=== PATIENT | female | born 1970 | race Caucasian/White ===

== ENCOUNTER 2020-08-31 16:52 | Observation (INO) | payer OTHER, SELFPAY ==
[2020-08-31] VITALS (19 sets, daily range): BP systolic 133–153; BP diastolic 88–106; PULSE 69–97; RESP 12–27; TEMP 35.7–36.6; O2SAT 95–100; BMI 30.8
--- NOTE | ~2020-08-31 | CT_ITS ---
EXAMINATION: CT abdomen pelvis w con EXAM DATE: 08/31/2020 18:14 INDICATION: Swollen legs, gaining weight, abdominal pain . TECHNIQUE: Spiral CT of the abdomen and pelvis was performed following intravenous injection of 100 m L Omnipaque 350. Axial, coronal and sagittal images were reviewed. The dose-length product (DLP) fo r this examination was 769.38 mGy-cm. The exposure was tailored according to patient size (auto mA e xposure control), and iterative reconstruction (ASIR) was used as additional dose reduction technique . Comparison is made to prior examination from 09/20/2015. FINDINGS: The liver, spleen, adrenal glands and pancreas are unremarkable. Gallbladder is unremarkab le. No biliary obstruction. Portal and splenic veins are patent. Kidneys enhance symmetrically. T here is no hydronephrosis. The uterus is anteverted and morphologically normal. The bladder is co llapsed at time of imaging limiting evaluation. There is no retroperitoneal or pelvic lymphadenopath y. There is mild scattered arteriosclerotic disease. The appendix is normal. There is moderate sigmoid colonic diverticulosis. There is no adjacent infla mmatory change to suggest diverticulitis. Small duodenal diverticulum. There is expected amount of c olonic stool. No free intraperitoneal gas. The heart is normal in size. There are no pericardial or pleural effusions. The lung bases are unremarkable. There are no osteoblastic or osteolytic les ions identified. Healed left lower rib fractures. There is right-sided L5 spondylolysis, with 6 mm an terolisthesis L5 on S1. IMPRESSION: 1. No acute intra-abdominal findings. 2. Moderate sigmoid colonic diverticulosis. 3. Chronic right L5 spondylolysis, grade 1 anterolisthesis. Reviewed, dictated and finalized at location A.
--- NOTE | ~2020-08-31 | XR_ITS ---
EXAMINATION: XR chest 1V portable EXAM DATE: 08/31/2020 17:36 INDICATION: Hypokalemia, bilateral leg weakness. Symptoms one to 2 weeks. TECHNIQUE: Portable AP frontal chest x-ray was obtained. Comparison is made to prior examination from 12/12/2014. FINDINGS: The lungs are clear. There are no pleural effusions. Cardiac silhouette is prominent but magnified on this AP technique. There is no pneumothorax suspected. The bones and soft tissues are unremarkable. IMPRESSION: No acute cardiopulmonary findings. Reviewed, dictated and finalized at location A.
--- NOTE | 2020-08-31 17:12 | ECG_ITS ---
Measurements Intervals Phil Campbell Rate: 77 P: 27 MN: 166 QRS: -7 QRSD: 90 T: 25 QT: 386 QTc: 438 Interpretive Statements SINUS RHYTHM VENTRICULAR PREMATURE COMPLEXES BORDERLINE R WAVE PROGRESSION, ANTERIOR LEADS BORDERLINE ECG Electronically Signed On 08-31-2020 18:14:53 CDT by Efe Miguel D.O.
[2020-08-31 17:27] LABS: Basophils Percent Auto 0.5 % (0.2-1.2); Eosinophils Absolute Auto 0.1 K/mm3 (0-0.3); Eosinophils Percent Auto 1.6 % (0-4.4); Hematocrit 34.4 % (37.0-47.0); Hemoglobin 11.9 g/dL (12.0-15.0); Immature Granulocyte Absolute 0.01 K/mm3 (0.00-0.031); Immature Granulocyte Percent A 0.2 % (0-0.5); Lymphocytes Percent Auto 26.1 % (18.3-44.2); Mean Corpuscular HGB Conc 34.6 g/dl (32-36); Mean Corpuscular Hemoglobin 35.6 pg (26-34); Monocytes Absolute Auto 0.7 K/mm3 (0.1-0.6); Monocytes Percent Auto 11.7 % (2.6-8.5); Neutrophils Absolute Auto 3.7 K/mm3 (1.3-6.7); Neutrophils Percent Auto 59.9 % (45.5-73.1); Platelet Count Result 277 k/mm3 (150-375); Red Blood Count 3.34 M/mm3 (4.2-5.4); Red Cell Distribution Width 15.6 % (11.5-14.5); White Blood Count 6.1 K/mm3 (4.5-10.0)
[2020-08-31 17:43] LABS: Alanine Aminotransferase 10 U/L (4-35); Albumin Level 3.6 g/dL (3.5-5.1); Alkaline Phosphatase 70 U/L (38-126); Anion Gap 8 mmol/L (8-16); Aspartate Amino Transferase 22 U/L (14-36); Bilirubin,Total 0.2 mg/dL (0.2-1.3); Blood Urea Nitrogen 9 mg/dL (7-17); Calcium 8.5 mg/dL (8.4-10.2); Carbon Dioxide 25 mmol/L (22-30); Chloride 108 mmol/L (98-107); Estimated CRCL calculation 122 ml/min; Estimated Glomerular Filt Rate > 60; Glucose 84 mg/dL (65-105); Lipase 46 U/L (23-300); Magnesium 1.7 mg/dL (1.6-2.3); Potassium 2.7 mmol/L (3.4-5.0); Sodium 141 mmol/L (137-145)
--- NOTE | 2020-08-31 17:51 | ED.GENADULT ---
HPI - General Adult General Chief complaint: Recheck/Abnormal Lab/Rx Stated complaint: low potassium Time Seen by Provider: 08/31/20 17:07 Source: patient, family and RN notes reviewed Limitations: no limitations History of Present Illness HPI narrative: Patient is 50 years old white female presents with feeling swollen all over mainly lower extremity bilaterally mainly in the right 1., Intermittent palpitation. Started 3 days ago. Patient also complaining of numbness and cramps of the legs for a while. patient was seen by her family physician today and blood work-up showed hypokalemia. Patient referred to the emergency room for further evaluation. Patient is telling me that she gained weight lately. Short period of time. History of hypertension, asthma, patient smokes, drinks and uses marijuana intermittently. History of diverticulitis, last colonoscopy 1-1/2-year ago. Denies history of Covid or exposure to anybody known having Covid. Patient denies any fever, chills, nausea, vomiting. patient told me that she been having numerous episodes of diarrhea a day for the last few months. Scheduled to see a leaf conditioner helper. Patient works at [employer] with long hours standing a day. Related Data Home Medications Medication Instructions Recorded Confirmed albuterol sulfate INHALATION 08/31/20 lisinopril-hydrochlorothiazide tablet 08/31/20 Allergies Allergy/AdvReac Type Severity Reaction Status Date / Time No Known Allergies Allergy Verified 08/31/20 17:07 Review of Systems Review of Systems: Narrative: CONSTITUTIONAL: Denies fever, chills, or sweats. EYES: Denies visual changes, redness, or discharge. ENT: Denies rhinorrhea, congestion, sore throat, or otalgia. CARDIOVASCULAR: Denies chest pain, palpitations, or edema. RESPIRATORY: Denies cough or dyspnea. GASTROINTESTINAL: Denies abdominal pain, nausea, vomiting, or diarrhea. GENITOURINARY: Denies dysuria or hematuria. SKIN: Denies rash or itching. MUSCULOSKELETAL: Denies back pain, joint pain, or myalgia. NEUROLOGIC: Denies headache, numbness, or weakness. PSYCHIATRIC: Denies anxiety or depression. Exam Narrative: Exam Narrative: General appearance: Well-developed, well-nourished Skin: Edema lower extremity bilaterally up to the knees, mainly right lower leg. Head: Normocephalic, nontraumatic Eyes: Clear conjunctiva ENT: Oropharynx normal, ears normal, nose normal Neck: Supple, nontender Chest and respiratory: Airway patent, no respiratory distress, no accessory muscle use Heart: Regular rate/rhythm Abdomen: Soft, nontender, no organomegaly, quiet bowel sounds Vascular: Normal peripheral pulses, normal capillary refill. Musculoskeletal: Normal range of motion, nontender back Neurologic: Alert and oriented ?3, MANAGER SPEECH is normal as tested, no gross motor deficit Course Course Emergency Course: Stable Vital Signs Vital signs: Vital Signs Temperature 36.6 C 08/31/20 16:58 Pulse Rate 89 08/31/20 16:58 Respiratory Rate 15 08/31/20 16:58 Blood Pressure 148/96 H 08/31/20 16:58 Pulse Oximetry 98 08/31/20 16:58 Temperature 36.6 C 08/31/20 16:58 Pulse Rate 89 08/31/20 16:58 Respiratory Rate 15 08/31/20 16:58 Blood Pressure 148/96 H 08/31/20 16:58 Pulse Oximetry 98 08/31/20 16:58 Medical Decision Making [facility] Narrative Medical decision making narrative: Patient referred to
[2020-08-31 17:59] LABS: CRP < 0.5 mg/dL (<1.0)
[2020-08-31 18:01] LABS: Erythrocyte Sedimentation Rate 26 mm/hr (0-20)
[2020-08-31 18:06] LABS: NT Pro B Type Natriuretic Pept 232 PG/ML (5-100)
[2020-08-31 18:32] LABS: D Dimer 0.27 ug/mL (<0.48)
[2020-08-31 18:35] LABS: Add Urine Microscopic? NO; Appearance Urine Clear (Clear); Bilirubin Urine Negative (Negative); Blood Urine Negative (Negative); Color Urine Yellow (Yellow); Glucose Urine UA Negative (Negative); Ketones Urine Negative (Negative); Leukocyte Esterase Ur Negative LEU/UL (Negative); Nitrate Urine Negative (Negative); Protein Urine Negative (Negative); Specific Grav Ur 1.006 (1.001-1.035); Urobilinogen Urine Negative mg/dL (<2.0)
[2020-08-31] MEDS: POTASSIUM CHLORIDE 20 MEQ TABLET 40 MEQ PO (18:49)
--- NOTE | 2020-08-31 19:18 | PC.NURSE ---
Report received from CLEMENT Pedersen. Assumed care of patient at this time.
--- NOTE | 2020-08-31 20:30 | ADMGEN ---
This patient, Yanira Oshea, was admitted to Medical Room 344-01. Patient/family oriented to hospital policies and general routines including ID bracelet, bed and alarms, visiting hours, pain management, procedures, bathroom and other care routines, personal items, smoking policy, room service/diet, and visiting hours. Information on how to activate the Rapid Response Team has been discussed. Patient/Family are encouraged to report perceived risks to care and to ask questions if they do not understand what they are told or what they should do.
--- NOTE | 2020-09-01 | ECHO_ITS ---
Patient Info Name: Yanira Oshea Age: 50 years : 1970 Gender: Female Ht: 65 in Wt: 185 lbs BSA: 1.99 m2 HR: 72 bpm BP: 108 / 60 mmHg Heart Rhythm: Sinus Rhythm Technical Quality: Good Exam Date: 09/01/2020 7:28 AM Exam Location: [facility] Pulmonary Exam Room: 344 Patient Status: Inpatient Admit Date: 08/31/2020 Staff Ordering Physician: Keri Jones DO Container Crane Operator: Corine Oseguera RDCS Attending Provider: Francisco Fowler MD Referring Physician: Karen CUEVA; Exam Type: CA echo doppler color flow Study Info Indications - RD WEIGHT GAIN PALPITATIONS Complete two-dimensional, color flow and Doppler transthoracic echocardiogram is performed. Summary 1. Complete two-dimensional, color flow and Doppler transthoracic echocardiogram is performed. 2. Left ventricular chamber dimension is normal. 3. Left ventricular systolic function is normal, estimated at 60-65%. 4. There is no increased left ventricular wall thickness. 5. The left ventricular diastolic function is normal. 6. There is mild mitral valve regurgitation. 7. There is mild tricuspid valve regurgitation. Left Ventricle Left ventricular chamber dimension is normal. Left ventricular systolic function is normal, estimated at 60-65%. There is no increased left ventricular wall thickness. The left ventricular diastolic function is normal. Right Ventricle Right ventricular chamber dimension is normal. Right ventricular systolic function is normal. Left Atria Left atrial chamber dimension is normal. Right Atria Right atrial chamber dimension is normal. Atrial Septum Intact interatrial septum visualized by color flow imaging. Aortic Valve The aortic valve is trileaflet. There is mild aortic valve sclerosis. There is no aortic valve stenosis. There is trace aortic valve regurgitation. Pulmonic Valve The pulmonic valve is normal. There is no pulmonic valve stenosis. There is trace pulmonic regurgitation. Mitral Valve The mitral valve has normal leaflets. There is no mitral valve stenosis. There is mild mitral valve regurgitation. Tricuspid Valve The tricuspid valve leaflets are normal. There is no significant tricuspid valve stenosis. There is mild tricuspid valve regurgitation. No pulmonary hypertension, estimated pulmonary arterial systolic pressure is 27 mmHg. Pericardium/Pleural The pericardium appears normal. There is no pericardial effusion. Inferior Vena Cava Normal inferior vena cava with >50% collapse upon inspiration consistent with normal right atrial pressure, 10 mmHg. Aorta The aortic root size at the sinus of Valsalva is normal. The prox ascending aorta size is normal. Left Ventricular Outflow Tract Name Value Normal LVOT 2D LVOT Diameter 2.0 cm LVOT Doppler LVOT Peak Gradient 3 mmHg LVOT Mean Gradient 2 mmHg LVOT VTI 22 cm LVOT VTI/AV VTI Ratio 0.9 LVOT Stroke Volume 70 ml LVOT CO
[2020-09-01] MEDS: SODIUM CHLORIDE 0.9% IV 1,000 ML 125 ML IV CONT ×2 (00:05→08:27)
[2020-09-01 00:09] VITALS: PULSE 77
[2020-09-01 04:00] VITALS: PULSE 76
[2020-09-01 04:22] VITALS: BP 108/60; PULSE 74; RESP 18; TEMP 36.4; O2SAT 100
[2020-09-01 05:54] LABS: Anion Gap 0 mmol/L (8-16); Blood Urea Nitrogen 5 mg/dL (7-17); Calcium 7.6 mg/dL (8.4-10.2); Carbon Dioxide 28 mmol/L (22-30); Chloride 109 mmol/L (98-107); Estimated CRCL calculation 103 ml/min; Estimated Glomerular Filt Rate > 60; Glucose 89 mg/dL (65-105); Magnesium 1.6 mg/dL (1.6-2.3); Phosphorus 3.6 mg/dL (2.5-4.5); Sodium 137 mmol/L (137-145)
[2020-09-01 08:00] VITALS: BP 128/91; PULSE 66; RESP 20; TEMP 36.2; O2SAT 100
[2020-09-01] MEDS: POTASSIUM CHLORIDE 20 MEQ TABLET.ER 40 MEQ PO (08:29)
[2020-09-01 10:05] VITALS: PULSE 66; O2SAT 100
[2020-09-01 12:00] VITALS: PULSE 97
--- NOTE | 2020-09-01 13:48 | PM.SD2 ---
Same Day Admit/Disch: HPI History of Present Illness Chief complaint: Hypokalemia, diarrhea, dependent edema Narrative: Yanira Oshea is a 50 year old female admitted because of swelling in her ankles, and lab showing low potassium levels. Pt does have a history of asthma, HTN and possible IBS otherwise is in good health. Pt had renal liver and thyroid checks which was negative. Pt had unremarkable echo. Pt ankle swelling improved. Pt had potassium rider. Pt describes some diarrhea which may have caused her low potassium levels. Pt feels better and wants to go home pt has no further swelling in her ankles. [facility] Family History Family History Mother Congestive heart failure Diabetes mellitus Hypertension Sibling Diabetes mellitus Hypertension Sibling Diabetes mellitus Hypertension Father Hypertension Grandparent History of blood clots Social History Social History Years smoked: 10 Smoking status: Current every day smoker Tobacco type: cigarettes Alcohol intake: current Drinks per week: 14 Substance use: current Substance use type: marijuana Last use: 08/27/20 Gender identity (if verbalized by the patient): Female Spiritual care concerns: No Same Day Admit/Disch: Med Pre-admit Medications Home Medications Medication Instructions Recorded Confirmed Type acetaminophen 1,300 mg PO HS PRN 08/31/20 08/31/20 History albuterol sulfate 2 inh INHALATION QID PRN 08/31/20 08/31/20 History lisinopril-hydrochlorothiazide 1 tablet PO HS 08/31/20 08/31/20 History potassium chloride [K-Tab] 20 meq PO BID #20 tablet 09/01/20 Rx Exam Const: General: well developed Nutritional Appearance: well nourished HENMT: Head: normocephalic Eyes: General: appearance normal, both eyes and all related structures Pupils: Equal, round and reactive pupils present Neck: Neck: supple Chest: Chest palpation & inspection: normal inspection of the chest Resp: Effort & Inspection: normal respiratory effort Auscultation: clear to auscultation bilaterally Cardio: Jugular venous distension: no JVD Rhythm: regular rhythm Heart sounds: S1 normal heart sound present and S2 normal heart sound present GI: Inspection: normal to inspection GI Palp: No abdominal tenderness, Yes Soft to palpation and No Tenderness to palpation present (GI) Auscultation: normal bowel sounds : General: Yes no CVA tenderness Back/Spine/Pelvis: Back: no CVA tenderness Skin: General skin exam: normal color and dry skin Neuro: Cranial nerves: Yes CN's II-XII intact bilaterally and Yes Equal, round and reactive pupils present Cognition (Neuro): normal cognition Speech: normal speech Motor exam (neuro): 5/5 motor strength present throughout Extrem: General: normal to inspection Psych: Appearance: grossly normal Mental Status: mental status grossly normal DS: Data Data Completed and Pending Labs on day of discharge: Labs from last 24 hours 09/01/20 08/31/20 08/31/20 05:28 18:22 17:17 WBC RBC Hgb Hct MCV MCH MCHC RDW Plt Count MPV Immature Gran % (Auto) Neut % (Auto) Lymph % (Auto) Burke % (Auto) Eos % (Auto) Baso % (Auto) Lymph # (Auto) Burke # (Auto) Eos # (Auto) Baso # (Auto) Abs Immat Gran (auto) Absolute Neuts (auto) Absolute Nucleated RBC Nucleated RBC % ESR D-Dimer 0.27 Sodium 137 Potassium 3.0 L Chloride 109 H Carbon Dioxide 28 Anion Gap 0 L BUN 5 L Creatinine 0.60 L Estim Creat Clear Calc 103 Estimated GFR > 60 Glucose 89 Calcium 7.6 L Phosphorus 3.6 Magnesium 1.6 Total Bilirubin AST ALT Alkaline Phosphatase C-Reactive Protein NT-Pro-B Natriuret Pep Total Protein Albumin Lipase TSH Urine Color Yellow Urine Appearance Clear Ur
== END 2020-09-01 14:36 | disposition home or self-care (01) ==
LOC: ANHED 19:03 → ANH3MED 09-01 00:06 → ANH3MEDSUR 09-03 13:44
PROVIDERS: Admitting Provider Internal Medicine; Emergency Provider Emergency Medicine; PCP Internal Medicine; Visit Provider Family Medicine
DX: K52.9 Noninfective gastroenteritis and colitis, unspecified (principal); E87.6 Hypokalemia; I10 Essential (primary) hypertension; J45.909 Unspecified asthma, uncomplicated; R60.9 Edema, unspecified; F17.210 Nicotine dependence, cigarettes, uncomplicated
CPT/HCPCS: 36415; 71045; 74177; 80048; 80053; 81003; 83690; 83735; 83880; 84100; 84443; 85025; 85380; 85652; 86140; 93005; 93306; 96361; 96365; 96366; 96374; 99285; A9270; G0378; J0131; J3480; J7030; Q9967

== ENCOUNTER 2021-03-28 22:07 | Emergency (ER) | payer OTHER, SELFPAY ==
[2021-03-28 22:12] VITALS: BP 115/71; PULSE 89; RESP 18; TEMP 36.2; O2SAT 100
== END 2021-03-28 22:52 | disposition left against medical advice (07) ==
LOC: ANHED 23:00
PROVIDERS: PCP Internal Medicine
DX: R10.9 Unspecified abdominal pain (principal)
CPT/HCPCS: 99199

== ENCOUNTER 2021-10-26 10:54 | Outpatient (CLI) | payer OTHER, SELFPAY ==
--- NOTE | ~2021-10-26 | MR_ITS ---
EXAMINATION: MR knee LT wo con DATE: 10/26/2021 12:03 INDICATION: Generalized left knee pain, status post twisting injury 2 weeks ago. TECHNIQUE: Magnetic resonance imaging (MRI) of the left knee was performed without intravenous contra st. Sequences included axial PD-weighted FS FSE, coronal PD-weighted FSE and PD-weighted FS FSE, sagi ttal PD-weighted FSE, and sagittal T2-weighted FS FSE. COMPARISON: None. FINDINGS: Medial compartment: Intact meniscus. Diffuse mild cartilage thinning and osteophytosis. Lateral compartment: Oblique tear at the junction of the lateral meniscus posterior horn and body, with a flipped portion of meniscus. Large area of full-thickness cartilage loss on the lateral facet. Cortical irregularity and mild cortical depression of the posterior aspect of the lateral tibial plateau. Patellofemoral compartment: Retinacula and extensor mechanism are intact. Ligaments and tendons: Torn ACL. Mild signal abnormality superficial and deep to the MCL tendons as can be seen with mild pa rtial tear. PCL and LCL are intact. Fluid: Large volume joint fluid. Osseous/other: Marrow edema and subchondral fracture in the posterior aspect of the lateral tibial plateau. IMPRESSION: 1. Minimally depressed lateral tibial plateau cortical and subchondral fracture. 2. Flipped lateral meniscus tear. 3. ACL tear. 4. Large volume joint effusion. Reviewed, dictated and finalized at location K. IMPRESSION: 1. Minimally depressed lateral tibial plateau cortical and subchondral fracture . 2. Flipped lateral meniscus tear. 3. ACL tear. 4. Large volume joint effusion.
== END 2021-10-26 10:55 ==
PROVIDERS: PCP Orthopaedic Surgery; Visit Provider Orthopaedic Surgery
DX: S83.512A Sprain of anterior cruciate ligament of left knee, initial encounter (principal); S83.282A Other tear of lateral meniscus, current injury, left knee, initial encounter; X58.XXXA Exposure to other specified factors, initial encounter; M25.462 Effusion, left knee
CPT/HCPCS: 73721

== ENCOUNTER 2024-02-27 23:27 | Inpatient (IN) | payer OTHER, SELFPAY ==
--- NOTE | ~2024-02-27 | CT_ITS ---
EXAMINATION: CT hip RT wo con DATE: 02/28/2024 03:36 INDICATION: Right hip injury. TECHNIQUE: Computed tomography (CT) of the right hip was performed without intravenous contrast. Auto mated exposure control and iterative reconstruction technique were employed. The dose-length product was 591.33 mGy-cm. COMPARISON: CT abdomen and pelvis 08/31/2020 FINDINGS: The bladder is distended. There are bilateral tubal ligation clips. There are scattered div erticula in the colon. There is fat stranding around the sigmoid colon. There are chronic bilateral L 5 pars defects. There is 5 mm anterolisthesis of L5 on S1. There is severe degenerative disc disease at L5-S1. There is a comminuted intertrochanteric fracture of proximal right femur. The main distal f racture fragment demonstrates impaction and 20 degrees varus angulation. There is mild right hip oste oarthritis. IMPRESSION: 1. Comminuted intertrochanteric fracture of proximal right femur. 2. Mild right hip osteoarthritis. 3. Fat stranding around the sigmoid colon, which may be edema or inflammation/scarring. Reviewed, dictated and finalized at location A. IMPRESSION: 1. Comminuted intertrochanteric fracture of proximal right femur. 2. Mild right hip osteoarthritis. 3. Fat stranding around the sigmoid colon, which may be edema or inflammation/s carring.
--- NOTE | ~2024-02-27 | US_ITS ---
EXAMINATION:US venous doppler LE RT INDICATION:Right leg edema TECHNIQUE: Multiple grayscale, color flow and Doppler images of the right lower extremity deep venous systems were obtained and reviewed. COMPARISON:No prior studies for comparison. FINDINGS: The common femoral, superficial femoral and popliteal veins demonstrate normal respiratory variation, augmentation and compressibility. Color flow is also seen within the posterior tibial, pe roneal, greater saphenous and profunda veins. IMPRESSION: 1: No lower extremity deep venous thrombosis. Reviewed, dictated and finalized at location B.
--- NOTE | ~2024-02-27 | XR_ITS ---
EXAMINATION: XR hip RT min 2V DATE: 02/28/2024 00:07 INDICATION: Right hip pain. Fall. TECHNIQUE: 3 views of right hip were obtained. COMPARISON: None. FINDINGS: There is an intertrochanteric fracture of proximal right femur. The main distal fracture fr agment demonstrates 20 degrees varus angulation and 9 mm anterior displacement. There is mild right h ip osteoarthritis. Tubal ligation clips are noted. IMPRESSION: 1. Intertrochanteric fracture of proximal right femur. 2. Mild right hip osteoarthritis. Reviewed, dictated and finalized at location A.
--- NOTE | ~2024-02-27 | XR_ITS ---
EXAMINATION: XR chest 1V portable 03/06/2024 03:28 INDICATION: New onset of chest pain PROCEDURE: AP portable chest COMPARISON: 08/31/2020 FINDINGS: The lungs are clear. The cardiomediastinal silhouette is within normal limits. There are no pleural effusions. There is no pneumothorax suspected. IMPRESSION: 1: NO ACUTE CARDIOPULMONARY DISEASE. Reviewed, dictated and finalized at location B.
--- NOTE | ~2024-02-27 | XR_ITS ---
EXAMINATION: XR surgery orthopedic DATE: 02/29/2024 18:35 INDICATION: Comminuted intratrochanteric fracture of the proximal right femur TECHNIQUE: 12 fluoroscopic images of the right hip and femur were obtained during procedure performed by Dr. Jauregui. Radiologist was not present for the imaging or procedure. The amount of fluoroscopy time used during this procedure was 23.5 minutes. Total DAP was 21.10 Gycm^2 COMPARISON: CT dated 02/28/2024 FINDINGS: Images demonstrate an intratrochanteric fracture of the proximal right femur which is been reduced to essentially anatomic alignment. Subsequent images demonstrate internal fixation of the fracture with a long antegrade intramedullary hoda with a pair of femoral neck dynamic compression screws as well a s a couple additional interlocking screws at the mid and distal femur. No new fractures identified. T he tip of the guide pin but not of the surrounding larger femoral neck screw projects slightly beyond the articular cortex. Mild osteoarthritis at the right hip. Joint space at the right knee appear re latively preserved. IMPRESSION: 1. Fluoroscopy utilized during internal fixation of a previously seen comminuted intratrochanteric fr acture of the proximal right femur which is now in essentially anatomic alignment. Reviewed, dictated and finalized at location A. IMPRESSION: 1. Fluoroscopy utilized during internal fixation of a previously seen comminute d intratrochanteric fracture of the proximal right femur which is now in essent ially anatomic alignment.
[2024-02-27 23:29] VITALS: BP 185/112; PULSE 101; RESP 31; TEMP 36.6; O2SAT 100
--- NOTE | 2024-02-27 23:35 | ED.FALL ---
HPI - Fall General Chief Complaint: Fall <Aliyah Frankel APRN - Last Filed: 02/28/24 03:39> Stated Complaint: ETOH+, MULTIPLE FALLS, LEG & HIP PAIN <Aliyah Frankel APRN - Last Filed: 02/28/24 03:39> History of Present Illness HPI Narrative: Patient is a 53-year-old female who presents to the ER after a fall. She reports she has been drinking alcohol since 09/04 this afternoon. Patient reports she fell on her right hip prior to arrival. She reports she is unable to move the hip joint or right leg. Patient endorses severe pain and is yelling out periodically. She denies shortness of breath, chest pain, any signs or symptoms of infection. <Aliyah Frankel APRN - Last Filed: 02/28/24 03:39> Related Data Home Medications: Home Medications Medication Instructions Recorded Confirmed acetaminophen 650 mg 1,300 mg PO HS PRN Pain 08/31/20 12/26/21 tablet,extended release albuterol sulfate 90 mcg/actuation 2 inh inhalation QID PRN Shortness 08/31/20 12/26/21 aerosol inhaler Of Breath Or Wheezing lisinopril 20 1 tablet PO HS 08/31/20 12/26/21 mg-hydrochlorothiazide 12.5 mg tablet omeprazole 40 mg capsule,delayed 03/28/21 12/26/21 release <Aliyah Frankel APRN - Last Filed: 02/28/24 03:39> Allergies/Adverse Reactions: Allergies Allergy/AdvReac Type Severity Reaction Status Date / Time No Known Allergies Allergy Verified 02/27/24 23:37 <Aliyah Frankel APRN - Last Filed: 02/28/24 03:39> Review of Systems Review of Systems: All systems reviewed & are unremarkable except as noted in HPI and below <Aliyah Frankel APRN - Last Filed: 02/28/24 03:39> [facility] Past Medical History Medical History: Medical History Anxiety Arthritis Asthma Closed fracture of lateral portion of left tibial plateau Degenerative arthritis of knee, bilateral <Aliyah Frankel APRN - Last Filed: 02/28/24 03:39> Surgical History Surgical History: Surgical History No history of previous surgery <Aliyah Frankel APRN - Last Filed: 02/28/24 03:39> Family History Family History: Family History Mother Congestive heart failure Diabetes mellitus Hypertension Heart disease Sibling Diabetes mellitus Hypertension Asthma Sibling Diabetes mellitus Hypertension Father Hypertension Grandparent History of blood clots <Aliyah Frankel APRN - Last Filed: 02/28/24 03:39> Social History Social History: Social History Years smoked: 10 Smoking status: Current every day smoker Tobacco type: cigarettes Alcohol intake: current Drinks per week: 24 Substance use: current Substance use type: marijuana Last use: 08/27/20 Living arrangements: with family Gender identity (if verbalized by the patient): Female Spiritual care concerns: No <Aliyah Frankel APRN - Last Filed: 02/28/24 03:39> Exam Narrative: GENERAL: Well appearing, well-nourished, non-toxic, in mild distress d/t pain. NECK: Supple. No adenopathy, no masses. RESPIRATORY: Airway patent, respirations nonlabored. Clear to auscultation bilaterally, no rales, rhonchi, wheezing. CARDIOVASCULAR: Regular rate and rhythm without murmurs, rubs, or gallops. Peripheral pulses 2+ and equal bilaterally. ABDOMINAL: Soft, nontender, nondistended, no hepatosplenomegaly. Normoactive BS. MUSCULOSKELETAL: Moves all extremities except RLE. Pt is able to perform flexion and extension movements in her R ankle joint, but says nope! when asked to perform abduction, adduction, or raise RLE. Pt's R leg is externally rotated. SKIN: Warm, dry, normal color. No rashes. NEURO: A&O X3. Speech clear. Cranial nerves II-XII grossly intact. Steady gait. No ataxic mov
[2024-02-28] VITALS (14 sets, daily range): BP systolic 92–150; BP diastolic 59–92; PULSE 85–113; RESP 12–28; TEMP 36.1–37.6; O2SAT 92–100; BMI 30.6
[2024-02-28] MEDS: IBUPROFEN 600 MG TABLET PO ×2 (00:16→10:40)
[2024-02-28] MEDS: hydrOXYzine HCL 25 MG TABLET PO (00:16)
[2024-02-28] MEDS: LORazepam INJ (*CRX) 2 MG/ML VIAL 0.5 MG IV PUSH (01:49)
[2024-02-28] MEDS: MORPHINE SULFATE (*CRX) 2 MG/ML INJ IV PUSH ×3 (01:50→20:23)
[2024-02-28] MEDS: SODIUM CHLORIDE 0.9% IV 1,000 ML 999 ML IV CONT (01:51)
[2024-02-28 04:35] LABS: Basophils Percent Auto 0.3 % (0.2-1.2); Eosinophils Absolute Auto 0.1 K/mm3 (0-0.3); Eosinophils Percent Auto 1.9 % (0-4.4); Hematocrit 33.5 % (37.0-47.0); Hemoglobin 11.7 g/dL (12.0-15.0); Immature Granulocyte Absolute 0.04 K/mm3 (0.00-0.031); Immature Granulocyte Percent A 0.6 % (0-0.5); Lymphocytes Absolute Auto 1.38 K/mm3 (0.9-3.2); Lymphocytes Percent Auto 19.9 % (18.3-44.2); Mean Corpuscular HGB Conc 34.9 g/dl (32-36); Mean Corpuscular Hemoglobin 37.4 pg (26-34); Mean Platelet Volume 9.3 fl (7.4-10.4); Monocytes Absolute Auto 0.5 K/mm3 (0.1-0.6); Monocytes Percent Auto 7.1 % (2.6-8.5); Neutrophils Absolute Auto 4.9 K/mm3 (1.3-6.7); Neutrophils Percent Auto 70.2 % (45.5-73.1); Platelet Count Result 302 k/mm3 (150-375); Red Blood Count 3.13 M/mm3 (4.2-5.4); Red Cell Distribution Width 16.3 % (11.5-14.5)
[2024-02-28 04:36] LABS: Add Urine Microscopic? NO; Appearance Urine Clear (Clear); Bilirubin Urine Negative (Negative); Blood Urine Negative (Negative); Color Urine Yellow (Yellow); Glucose Urine UA Negative (Negative); Ketones Urine Negative (Negative); Leukocyte Esterase Ur Negative LEU/UL (Negative); Nitrate Urine Negative (Negative); Protein Urine Negative (Negative); Specific Grav Ur 1.004 (1.001-1.035); Urobilinogen Urine 0.2 mg/dL (<2.0)
[2024-02-28 04:43] LABS: INR 1.1; Prothrombin Time 14.9 Seconds (11.1-14.7)
[2024-02-28 04:44] LABS: Partial Thromboplastin Time 24.4 Seconds (22.3-36.8)
[2024-02-28 04:51] LABS: Alanine Aminotransferase 30 U/L (6-35); Albumin Level 2.9 g/dL (3.5-5.1); Alkaline Phosphatase 125 U/L (38-126); Anion Gap 12 mmol/L (4-12); Aspartate Amino Transferase 42 U/L (14-36); Bilirubin,Total 0.2 mg/dL (0.2-1.3); Blood Urea Nitrogen 3 mg/dL (7-17); Calcium 7.9 mg/dL (8.4-10.2); Carbon Dioxide 18 mmol/L (22-30); Chloride 105 mmol/L (98-107); Estimated CRCL calculation 147 ml/min; Estimated Glomerular Filt Rate > 60; Glucose 94 mg/dL (65-110); Potassium 3.1 mmol/L (3.4-5.0); Sodium 135 mmol/L (137-145)
[2024-02-28] MEDS: MORPHINE SULFATE (*CRX) 4 MG/ML INJ IV PUSH ×2 (05:36→07:05)
[2024-02-28] MEDS: SODIUM CHLORIDE 0.9% IV 1,000 ML 100 ML IV CONT ×2 (06:36→16:20)
--- NOTE | 2024-02-28 06:48 | PM.IMHP ---
H&P: HPI History of Present Illness Date/Time: 02/28/24 06:48 Chief Complaint: Fall Narrative: This is a 53-year-old female with a significant past medical history of anxiety, arthritis, asthma, hypertension, current daily smoker, marijuana abuse, alcohol abuse who presented to the ER for evaluation after a fall. Patient reports following history of presenting illness. She states that she fell last night when walking to her bedroom. Patient has history of frequent falls which she contributes to having her ACL removed in her left knee. She states that she had a fall about 1 week ago and injured her ribs. She was walking with crutches due to her last fall and had been using crutches at the time of this fall. She also admits that she drank 4 beers and 2 shots of fireball last night before she fell. Patient denies any fever, chills, nausea, vomiting, diarrhea, abdominal pain, chest pain, shortness of breath. Patient endorses 10/10 pain with muscle spasms. Workup in the hospital included a hip x-ray which showed an intertrochanteric fracture of the proximal right femur, mild right hip osteoarthritis. Initial labs showed white blood cell count of 7.0, hemoglobin 11.7, INR 1.1, sodium 135, potassium 3.1, bicarb 18, AST 42. UA was obtained and was negative. Patient was given a dose of Atarax, ibuprofen, morphine, Ativan, and 1 L of normal saline while in the ED. Orthopedic surgery was consulted. Review of Systems Review of Systems: All systems reviewed & are unremarkable except as noted in HPI and below Constitutional: Constitutional: Reports as per HPI and Reports no additional constitutional complaints Eyes: Eyes: Reports as per HPI and Reports no additional eye complaints ENT: Reports system reviewed and no additional complaints, except as documented and Reports as per HPI Cardiovascular: Cardiovascular: Reports as per HPI and Reports no additional cardiovascular complaints Respiratory: Respiratory: Reports as per HPI and Reports no additional respiratory complaints Gastrointestinal: Gastrointestinal: Reports as per HPI and Reports no additional gastrointestinal complaints Genitourinary: Genitourinary: Reports no additional female genitourinary complaints and Reports as per HPI Musculoskeletal: Musculoskeletal: Reports no additional musculoskeletal complaints and Reports as per HPI Integumentary/Breasts: Skin/Breast: Reports system reviewed and no additional complaints, except as docu and Reports as per HPI Neurologic: Reports system reviewed and no additional complaints, except as documented and Reports as per HPI Psychiatric: Psychiatric: Reports no additional psychiatric complaints and Reports as per HPI [facility] Past Medical History Medical History (Updated 02/28/24 @ 11:17 by Sima Ham APRN) Alcohol abuse Anxiety Arthritis Asthma Closed fracture of lateral portion of left tibial plateau Degenerative arthritis of knee, bilateral GERD (gastroesophageal reflux disease) Hypertension Marijuana abuse Tobacco abuse Torn ACL Surgical History Surgical History No history of previous surgery Family History Family History Mother Congestive heart failure Diabetes mellitus Hypertension Heart disease Sibling Diabetes mellitus Hypertension Asthma Sibling Diabetes mellitus Hypertension Father Hypertension Grandparent History of blood clots Social History Social History Years smoked: 10 Smoking status: Current every day smoker Alcohol intake: current Drinks per week: 24 Substance use: current Substance use type: marijuana Last use: 08/27/20 Do You Feel Safe in your Home?: Yes Lack of Transportation: No Lack of Food: Never True Current Housing: I Have Housing Concerned About Future Housing: No Difficulty Paying Gas/El
--- NOTE | 2024-02-28 07:03 | ADMGEN ---
This patient, Yanira Oshea, was admitted to Medical Room 250-01. Patient/family oriented to hospital policies and general routines including ID bracelet, bed and alarms, visiting hours, pain management, procedures, bathroom and other care routines, personal items, smoking policy, room service/diet, and visiting hours. Information on how to activate the Rapid Response Team has been discussed. Patient/Family are encouraged to report perceived risks to care and to ask questions if they do not understand what they are told or what they should do.
[2024-02-28] MEDS: ONDANSETRON INJ 4 MG/2 ML VIAL IV PUSH ×2 (07:06→20:24)
[2024-02-28] MEDS: NICOTINE (*PBKC) 21 MG PATCH 1 PATCH TRANSDERM (07:49)
[2024-02-28] MEDS: POTASSIUM CHLORIDE INJ 40 MEQ in SODIUM CHLORIDE 0.9% IV 500 ML 130 MEQ IVPB (07:49)
[2024-02-28 08:43] LABS: Ethanol 12 mg/dL (<10)
[2024-02-28 08:55] LABS: Magnesium 1.7 mg/dL (1.6-2.3)
[2024-02-28 10:22] LABS: Amphetamine Screen Urine Negative (Negative); Barbiturate Screen Urine Negative (Negative); Benzodiazepines Screen Urine Negative (Negative); Cannabinoid Screen Urine Negative (Negative); Cocaine Screen Urine Negative (Negative); Methadone Screen Urine Negative (Negative); Opiate Screen Urine Positive (Negative); Phencyclidine Screen Urine Negative (Negative)
--- NOTE | 2024-02-28 11:12 | PCPTNOTE ---
Ortho consult pending for hip fracture. Will hold evaluation until POC updated.
--- NOTE | 2024-02-28 15:13 | PM.CNOR ---
Assessment and Plan Assessment and plan (1) Intertrochanteric fracture of right femur: Code(s): S72.141A - Displaced intertrochanteric fracture of right femur, initial encounter for closed fracture Status: Acute Assessment and Plan: LUANN IS HERE FOR TREATMENT OF HER RIGHT INTERTROCHANTERIC HIP FRACTURE. SHE WILL REQUIRE OPERATIVE TREATMENT WITH A KIMI AND HIP SCREW. WE DISCUSSED BOTH OPTIONS OF OPERATIVE VS NONOPERATIVE TREATMENT. HISTORY, EXAM AND RADIOGRAPHS REVIEWED WITH THE PATIENT. REFERRING PHYSICIAN RECORDS AND IMAGES REVIEWED. CONDITION, NATURE, ETIOLOGY AND COURSE OF NATURAL HISTORY REVIEWED. CONSERVATIVE AND OPERATIVE TREATMENT OPTIONS REVIEWED WELL THE RISKS AND BENEFITS OF EACH. DISCUSSED NONOPERATIVE AND OPERATIVE TREATMENT OPTIONS WITH THE PATIENT. THE PATIENT'S QUESTIONS WERE ANSWERED. THE PATIENT DESIRES OPERATIVE TREATMENT. DISCUSSED ___INSERTION OF TROCHANTERIC FEMORAL KIMI RIGHT HIP . RISKS OF SURGERY INCLUDING BUT NOT LIMITED TO NEUROVASCULAR DAMAGE, WOUND COMPLICATIONS, BLOOD CLOT, PULMONARY EMBOLUS, STROKE, OH, ANESTHETIC RISKS UP TO AND INCLUDING WERE REVIEWED. CONTINUED PAIN AND POSSIBLE DYSFUNCTION WERE EXPLAINED. NO GUARANTEES WERE OFFERED. THE PATIENT UNDERSTANDS AND WISHES TO PROCEED. History of Present Illness HPI Consult date: 02/28/24 Chief complaint: right hip fracture Narrative: LUANN WAS SEEN THIS AM IN THE ED FOR RIGHT HIP PAIN AFTER A FALL ONTO HER RIGHT HIP. SHE WAS DIAGNOSED WITH A RIGHT INTERTROCHANTERIC FEMUR FRACTURE AND WAS ADMITTED FOR PAIN CONTROL. ORTHO CONSULT WAS REQUESTED. SHE CURRENTLY C/O RIGHT HIP PAIN. SHE DENIES ANY OTHER EXTREMITY PAIN. SHE DENIES ANY LOC OR NECK OR BACK PAIN. HISTORY, EXAM AND RADIOGRAPHS REVIEWED WITH THE PATIENT. REFERRING PHYSICIAN RECORDS AND IMAGES REVIEWED. CONDITION, NATURE, ETIOLOGY AND COURSE OF NATURAL HISTORY REVIEWED. CONSERVATIVE AND OPERATIVE TREATMENT OPTIONS REVIEWED WELL THE RISKS AND BENEFITS OF EACH. Review of Systems Review of Systems: All systems reviewed & are unremarkable except as noted in HPI and below PMFSH Past Medical History Medical History Alcohol abuse Anxiety Arthritis Asthma Closed fracture of lateral portion of left tibial plateau Degenerative arthritis of knee, bilateral GERD (gastroesophageal reflux disease) Hypertension Marijuana abuse Tobacco abuse Torn ACL Surgical History Surgical History No history of previous surgery Family History Family History Mother Congestive heart failure Diabetes mellitus Hypertension Heart disease Sibling Diabetes mellitus Hypertension Asthma Sibling Diabetes mellitus Hypertension Father Hypertension Grandparent History of blood clots Social History Social History Years smoked: 10 Smoking status: Current every day smoker Alcohol intake: current Drinks per week: 24 Substance use: current Substance use type: marijuana Last use: 08/27/20 Do You Feel Safe in your Home?: Yes Lack of Transportation: No Lack of Food: Never True Current Housing: I Have Housing Concerned About Future Housing: No Difficulty Paying Gas/Electric Bills: No Difficulty Paying for Meds: No Currently Unemployed: No Education: High School Diploma/GED Difficulty w/ Childcare or Family Care: No Living arrangements: with family Gender identity (if verbalized by the patient): Female Spiritual care concerns: No Meds Home Medications and Allergies Home Medications Medication Instructions Recorded Confirmed Type acetaminophen 650 mg 1,300 mg PO HS PRN Pain 08/31/20 02/28/24 History tablet,extended release albuterol sulfate 90 mcg/actuation 2 inh inhalation QID PRN Shortness 08/31/20
[2024-02-28] MEDS: HYDROcodone/acetaminophen (*CRX) 5-325 MG TABLET 2 TAB PO (16:19)
[2024-02-28] MEDS: CYCLOBENZAPRINE HCL 10 MG TABLET PO (17:47)
[2024-02-28] MEDS: ALBUTEROL SULFATE (*SP) AEROSOL 1 PUFF 2 PUFF INHALATION (20:43)
[2024-02-29] VITALS (15 sets, daily range): BP systolic 104–142; BP diastolic 68–98; PULSE 98–111; RESP 15–30; TEMP 36.4–37.3; O2SAT 90–99
[2024-02-29] MEDS: MORPHINE SULFATE (*CRX) 2 MG/ML INJ IV PUSH ×3 (00:53→11:10)
[2024-02-29] MEDS: SODIUM CHLORIDE 0.9% IV 1,000 ML 100 ML IV CONT ×2 (02:22→12:25)
[2024-02-29] MEDS: ONDANSETRON INJ 4 MG/2 ML VIAL IV PUSH ×3 (05:27→21:01)
[2024-02-29 06:34] LABS: Basophils Percent Auto 0.4 % (0.2-1.2); Eosinophils Absolute Auto 0.2 K/mm3 (0-0.3); Hematocrit 37.3 % (37.0-47.0); Hemoglobin 12.5 g/dL (12.0-15.0); Immature Granulocyte Absolute 0.03 K/mm3 (0.00-0.031); Immature Granulocyte Percent A 0.3 % (0-0.5); Lymphocytes Absolute Auto 1.11 K/mm3 (0.9-3.2); Lymphocytes Percent Auto 12.5 % (18.3-44.2); Mean Corpuscular HGB Conc 33.5 g/dl (32-36); Mean Corpuscular Hemoglobin 36.7 pg (26-34); Mean Corpuscular Volume 109.4 fl (80-100); Mean Platelet Volume 9.6 fl (7.4-10.4); Monocytes Absolute Auto 0.8 K/mm3 (0.1-0.6); Monocytes Percent Auto 8.9 % (2.6-8.5); Neutrophils Absolute Auto 6.8 K/mm3 (1.3-6.7); Neutrophils Percent Auto 75.9 % (45.5-73.1); Platelet Count Result 263 k/mm3 (150-375); Red Blood Count 3.41 M/mm3 (4.2-5.4); White Blood Count 8.9 K/mm3 (4.5-10.0)
[2024-02-29 06:52] LABS: Alanine Aminotransferase 25 U/L (6-35); Albumin Level 2.8 g/dL (3.5-5.1); Alkaline Phosphatase 144 U/L (38-126); Anion Gap 6 mmol/L (4-12); Aspartate Amino Transferase 35 U/L (14-36); Bilirubin,Total 0.8 mg/dL (0.2-1.3); Blood Urea Nitrogen 8 mg/dL (7-17); Calcium 8.1 mg/dL (8.4-10.2); Carbon Dioxide 21 mmol/L (22-30); Chloride 110 mmol/L (98-107); Estimated CRCL calculation 121 ml/min; Estimated Glomerular Filt Rate > 60; Glucose 104 mg/dL (65-110); Potassium 3.5 mmol/L (3.4-5.0); Sodium 137 mmol/L (137-145)
--- NOTE | 2024-02-29 07:27 | P.PNIM_ITS ---
Progress Note: A&P Assessment and Plan (1) Intertrochanteric fracture of right femur: Code(s): S72.141A - Displaced intertrochanteric fracture of right femur, initial encounter for closed fracture Status: Acute Assessment and Plan: 02/28/24: * Status post ground level fall * Right hip x-ray showing intratrochanteric fracture of the proximal right femur, mild right hip osteoarthritis * CTA of the right hip showed comminuted intratrochanteric fracture of proximal right femur, mild right hip osteoarthritis, fat stranding around the sigmoid colon representing edema or inflammation/scarring. * Orthopedic consulted * Continue pain control * Continue NPO status * Continue normal saline at 100 mL/hr * Continue Powell catheter * PT and OT ordered * Started Flexeril for muscle spasms * Given 1 time dose of Ibuprofen IV for pain. 02/29/24: * Plan for surgery today * Continue pain control * Orthopedics following * Continue Powell catheter * Continue Flexeril * Continue IV fluids at 100 mL/hr * Continue NPO status (2) Frequent falls: Code(s): R29.6 - Repeated falls Status: Acute Assessment and Plan: 02/28/24: * Patient reported a fall 1 week ago injuring her ribs * Reports that her falls are because of past surgery with her left ACL. She states that they removed her ACL?? * PT and OT ordered * see above plan of care 02/29/24: * No change to current treatment plan (3) Acute hypokalemia: Code(s): E87.6 - Hypokalemia Status: Acute Assessment and Plan: 02/28/24: * Potassium 3.1 * Will give 40 mEq of potassium IV today * Will check magnesium today 02/29/24: * Potassium 3.5 * No change to current treatment plan (4) Anxiety: Code(s): F41.9 - Anxiety disorder, unspecified Status: Acute Assessment and Plan: 02/28/24: * Patient was given a dose of Atarax and Ativan while in the ED * Patient does not take anything at home for anxiety 02/29/24: * Continue to monitor (5) Hypertension: Code(s): I10 - Essential (primary) hypertension Status: Acute Assessment and Plan: 02/28/24: * Blood pressure ranging 95/73 to 111/81 * Will hold home blood pressure medication due to low blood pressures. 02/29/24: * Blood pressures improved * Restarted home medication (6) Asthma: Code(s): J45.909 - Unspecified asthma, uncomplicated Status: Acute Assessment and Plan: 02/28/24: * Continue albuterol rescue inhaler 02/29/24: * No change to current treatment plan (7) Alcohol abuse: Code(s): F10.10 - Alcohol abuse, uncomplicated Status: Acute Assessment and Plan: 02/28/24: * Will check alcohol level * Patient was drinking alcohol yesterday prior to her fall. 02/29/24: * No change to current treatment plan (8) Tobacco abuse: Code(s): Z72.0 - Tobacco use Status: Acute Assessment and Plan: 02/28/24: * Nicotine patch ordered 02/29/24: * No change to current treatment plan Time Spent With Patient Time with patient: Greater than 35 minutes Subjective Date/time seen: 02/29/24 07:27 Interval history: Interval history: This is a 53-year-old female with a significant past medical history of anxiety, arthritis, asthma, hypertension, current daily smoker, marijuana abuse, alcohol abuse who presented to the ER for evaluation after a fall. Patient reports following history of presenting illness. She states that she fell l
--- NOTE | 2024-02-29 07:27 | PM.IMPN ---
Progress Note: A&P Assessment and Plan (1) Intertrochanteric fracture of right femur: Code(s): S72.141A - Displaced intertrochanteric fracture of right femur, initial encounter for closed fracture Status: Acute Assessment and Plan: 02/28/24: Status post ground level fall Right hip x-ray showing intratrochanteric fracture of the proximal right femur, mild right hip osteoarthritis CTA of the right hip showed comminuted intratrochanteric fracture of proximal right femur, mild right hip osteoarthritis, fat stranding around the sigmoid colon representing edema or inflammation/scarring. Orthopedic consulted Continue pain control Continue NPO status Continue normal saline at 100 mL/hr Continue Powell catheter PT and OT ordered Started Flexeril for muscle spasms Given 1 time dose of Ibuprofen IV for pain. 02/29/24: Plan for surgery today Continue pain control Orthopedics following Continue Powell catheter Continue Flexeril Continue IV fluids at 100 mL/hr Continue NPO status (2) Frequent falls: Code(s): R29.6 - Repeated falls Status: Acute Assessment and Plan: 02/28/24: Patient reported a fall 1 week ago injuring her ribs Reports that her falls are because of past surgery with her left ACL. She states that they removed her ACL?? PT and OT ordered see above plan of care 02/29/24: No change to current treatment plan (3) Acute hypokalemia: Code(s): E87.6 - Hypokalemia Status: Acute Assessment and Plan: 02/28/24: Potassium 3.1 Will give 40 mEq of potassium IV today Will check magnesium today 02/29/24: Potassium 3.5 No change to current treatment plan (4) Anxiety: Code(s): F41.9 - Anxiety disorder, unspecified Status: Acute Assessment and Plan: 02/28/24: Patient was given a dose of Atarax and Ativan while in the ED Patient does not take anything at home for anxiety 02/29/24: Continue to monitor (5) Hypertension: Code(s): I10 - Essential (primary) hypertension Status: Acute Assessment and Plan: 02/28/24: Blood pressure ranging 95/73 to 111/81 Will hold home blood pressure medication due to low blood pressures. 02/29/24: Blood pressures improved Restarted home medication (6) Asthma: Code(s): J45.909 - Unspecified asthma, uncomplicated Status: Acute Assessment and Plan: 02/28/24: Continue albuterol rescue inhaler 02/29/24: No change to current treatment plan (7) Alcohol abuse: Code(s): F10.10 - Alcohol abuse, uncomplicated Status: Acute Assessment and Plan: 02/28/24: Will check alcohol level Patient was drinking alcohol yesterday prior to her fall. 02/29/24: No change to current treatment plan (8) Tobacco abuse: Code(s): Z72.0 - Tobacco use Status: Acute Assessment and Plan: 02/28/24: Nicotine patch ordered 02/29/24: No change to current treatment plan Time Spent With Patient Time with patient: Greater than 35 minutes Subjective Date/time seen: 02/29/24 07:27 Interval history: Interval history: This is a 53-year-old female with a significant past medical history of anxiety, arthritis, asthma, hypertension, current daily smoker, marijuana abuse, alcohol abuse who presented to the ER for evaluation after a fall. Patient reports following history of presenting illness. She states that she fell last night when walking to her bedroom. Patient has history of frequent falls which she contributes to having her ACL removed in her left knee. She states that she had a fall about 1 week ago and injured her ribs. She was walking with crutches due to her last fall and had been using crutches at the time of this fall. She also admits that she drank 4 beers and 2 shots of fireball last night before she fell. Patient denies any fever, chills, nausea, vomiting, diarrhea, abdominal pain, chest pain, shortness of breath. Patient endorses 03/08
[2024-02-29 07:35] LABS: Anisocytosis 1+; Platelet Estimate Adequate (Adequate); Schistocytes None Seen
--- NOTE | 2024-02-29 08:11 | PCOTNOTE ---
Received OT orders. Pt is to have sx today for intertrochanteric femur fx. Will await to see pt until out of sx and medically stable.
--- NOTE | 2024-02-29 13:00 | ECG_ITS ---
Test Date: 2024-02-29 13:23:52 Measurements Intervals [place] Rate: 107 P: -2 WI: 146 QRS: 23 QRSD: 86 T: 15 QT: 326 QTc: 437 Interpretive Statements SINUS TACHYCARDIA BORDERLINE T WAVE ABNORMALITY- ANT/INF LEADS ABNORMAL ECG No previous ECG available for comparison Electronically Signed On 02-29-2024 13:36:13 CDT by Efe Miguel D.O.
--- NOTE | 2024-02-29 13:16 | PC.NURSE ---
Report called to Kenyetta SCALE MANAGER.
--- NOTE | 2024-02-29 13:45 | PC.NURSE ---
To OR via bed. Family at bedside. Voiding via Powell.
[2024-02-29] MEDS: TRANEXAMIC ACID 1,000MG/ISO100 1,000 MG/100 ML BAG 200 MG IVPB (14:05)
--- NOTE | 2024-02-29 15:00 | WPDANESEPPF ---
Anes - Initial Pre Proc Eval Procedure: Operation Date: 02/29/24 15:00 Proposed Procedures p Right Intertrochanteric Nail - Fan Jauregui MD Date/Time: 02/29/24 15:00 Surgeon: Vannessa Sierra MD Pre Op Diagnosis: right hip fracture Patient Data Age: 53 Gender: F Height: 1.68 m Weight: 86 kg Last Vital Signs Temp 37.3 C 02/29/24 14:05 Pulse 108 H 02/29/24 14:05 Resp 20 02/29/24 14:05 BP 137/96 H 02/29/24 14:05 Pulse Ox 94 02/29/24 14:05 O2 Del Method Room Air 02/29/24 14:05 FiO2 21 02/29/24 08:17 Allergies Allergy/AdvReac Type Severity Reaction Status Date / Time No Known Allergies Allergy Verified 02/29/24 14:07 Home Medications Medication Instructions Recorded Confirmed Type acetaminophen 650 mg 1,300 mg PO HS PRN Pain 08/31/20 02/28/24 History tablet,extended release albuterol sulfate 90 mcg/actuation 2 inh inhalation QID PRN Shortness 08/31/20 02/28/24 History aerosol inhaler Of Breath Or Wheezing lisinopril 20 1 tablet PO HS 08/31/20 02/28/24 History mg-hydrochlorothiazide 12.5 mg tablet potassium chloride 20 mEq 20 meq PO BID #20 tabs 09/01/20 02/28/24 Rx tablet,extended release (K-Tab) omeprazole 40 mg capsule,delayed 40 mg PO DAILY 03/28/21 02/28/24 History release Laboratory Tests 02/29/24 05:52 WBC 8.9 K/mm3 (4.5-10.0) RBC 3.41 L M/mm3 (4.2-5.4) Hgb 12.5 g/dL (12.0-15.0) Hct 37.3 % (37.0-47.0) MCV 109.4 H fl (80-100) MCH 36.7 H pg (26-34) MCHC 33.5 g/dl (32-36) RDW 17.0 H % (11.5-14.5) Plt Count 263 k/mm3 (150-375) MPV 9.6 fl (7.4-10.4) Immature Gran % (Auto) 0.3 % (0-0.5) Neut % (Auto) 75.9 H % (45.5-73.1) Lymph % (Auto) 12.5 L % (18.3-44.2) [place] % (Auto) 8.9 H % (2.6-8.5) Eos % (Auto) 2.0 % (0-4.4) Baso % (Auto) 0.4 % (0.2-1.2) Lymph # (Auto) 1.11 K/mm3 (0.9-3.2) [place] # (Auto) 0.8 H K/mm3 (0.1-0.6) Eos # (Auto) 0.2 K/mm3 (0-0.3) Baso # (Auto) 0.0 K/mm3 (0.0-0.1) Abs Immat Gran (auto) 0.03 K/mm3 (0.00-0.031) Absolute Neuts (auto) 6.8 H K/mm3 (1.3-6.7) Absolute Nucleated RBC 0.000 K/mm3 (0.0-0.012) Nucleated RBC % 0.0 % (0.0-0.2) Platelet Estimate Adequate (Adequate) Anisocytosis 1+ Schistocytes None seen Sodium 137 mmol/L (137-145) Potassium 3.5 mmol/L (3.4-5.0) Chloride 110 H mmol/L (98-107) Carbon Dioxide 21 L mmol/L (22-30) Anion Gap 6 mmol/L (4-12) BUN 8 D mg/dL (7-17) Creatinine 0.50 L mg/dL (0.7-1.0) Estim Creat Clear Calc 121 ml/min Estimated GFR > 60 (59 - ) Glucose 104 mg/dL (65-110) Calcium 8.1 L mg/dL (8.4-10.2) Total Bilirubin 0.8 mg/dL (0.2-1.3) AST 35 U/L (14-36) ALT 25 U/L (6-35) Alkaline Phosphatase 144 H U/L (38-126) Total Protein 6.0 L g/dL (6.3-8.2) Albumin 2.8 L g/dL (3.5-5.1) Patient hx anesthesia problems: none Family hx anesthesia problems: none Results Review: All pre-operative results and documents have been reviewed as part of the pre-operative evaluation. [facility] Past Medical History Medical History Alcohol abuse Anxiety Arthritis Asthma Closed fracture of lateral portion of left tibial plateau Degenerative arthritis of knee, bilateral GERD (gastroesophageal reflux disease) Hypertension Marijuana abuse Tobacco abuse Torn ACL Surgical History Surgical History No history of previous surgery Family History Family History Mother Congestive heart failure Diabetes mellitus Hypertension Heart disease Sibling Diabetes mellitus Hypertension Asthma Sibling Diabetes mellitus Hypertension Father Hypertension Grandparent History of bl
--- NOTE | 2024-02-29 15:32 | WPDHPUPDATE1 ---
History and Physical Update Update Date/Time: 02/29/24 15:32 History and Physical has been reviewed, including an updated exam of the patient. There are NO changes in the patient's condition. Risks, benefits, and alternatives have been discussed and questions answered. Patient agrees to proceed with procedure.
[2024-02-29] MEDS: ceFAZolin 2 GM/D5W 50 ML 2 GM/50 ML BAG IVPB (15:44)
[2024-02-29] MEDS: LACTATED RINGERS 1,000 ML 30 ML IV CONT (16:30)
--- NOTE | 2024-02-29 18:54 | P.OP_ITS ---
Procedure Note - Detailed Date of Procedure 02/29/24 Pre-op Diagnosis RIGHT INTERTROCHANTERIC FEMUR FRACTURE Post-op Diagnosis Other (RIGHT INTERTROCHANTERIC FEMUR FRACTURE WITH FEMORAL NECK FRACTURE EXTENSION) Procedure Performed INSERTION TROCHANTERIC FEMORAL NAIL RIGHT FEMUR Surgeon Fan Jauregui MD Anesthesia General Description of Procedure THE PATIENT WAS TAKEN TO THE OPERATING ROOM AND PLACED ON A FRACTURE TABLE AFTER GIVEN GENERAL ANESTHESIA. THE RIGHT LOWER EXTREMITY WAS PLACED IN A TRACTION AYDE OT. THE FRACTURE WAS IMAGED. USING FLUOROSCOPY A FEMORAL NECK FRACTURE WAS SEEN WELL A INTERTROCHANTERIC FRACTURE. USING SOME TRACTION AND INTERNAL ROTATION THE INTER TROCHANTERIC FRACTURE AND FEMORAL NECK FRACTURE BOTH REDUCED TO ANATOMIC POSITION. NEXT THE RIGHT LOWER EXTREMITY WAS PREPPED AND DRAPED IN THE STERILE FASHION. AN INCISION WAS MADE PROXIMAL TO THE TIP OF THE GREATER TROCHANTER AND DISSECTION CONTINUED TILL THE TIP OF THE GREATER TROCHANTER WAS PALPATED. A GUIDE PIN WAS PLACED DOWN THE FEMORAL CANAL AND PAST THE FRACTURE SITE. THIS WAS CHECKED ON FLUOROSCOPY AND FOUND TO BE IN GOOD POSITION. AN INITIAL REAMER WAS USED TO REAM THE FEMORAL CANAL. A LONG GUIDE PIN WAS PLACED DOWN TO THE SUPERIOR POLE OF THE PATELLA. A DEPTH GAUGE WAS PLACED. A 36 CM X 10 MM X 125 DEG NECK ANGLE TROCHANTERIC KIMI WAS THEN INSERTED . A GUIDE PIN WAS INSERTED THROUGH THE FEMORAL NECK AT 125 DEG ANGLE TILL IT REACHED THE TIP OF THE SUB CHONDRAL BONE SEEN ON XRAY. A GUIDE PIN FOR A DEROTATIONAL SCREW WAS PLACED WELL. AFTER DRILLING, LAG SCREW AND DEROTATIONAL SCREW BOTH MEASURING 100 MM WERE BOTH INSERTED. XRAYS SHOWED SCREWS AND FRACTURES TO BE IN GOOD POSITION. THE LAG SCREW WAS LOCKED PROXIMALLY WITH A LOCKING MECHANISM. THE FRACTURE WAS COMPRESSED. NEXT, DISTAL LOCKING SCREWS WERE PLACED ACROSS THE KIMI AND WERE IN GOOD POSITION ON XRAY. THE TRACTION WAS RELEASED. THE WOUNDS WERE WASHED. THE DEEP FASCIA WAS REPAIRED WITH 0 VICRYL SUTURE, THE SUB CUTANEOUS LAYER WITH 2-0 VICRYL, AND THE SKIN WITH KENTRELL. THE WOUNDS WERE WASHED AND THEN STERILE DRESSING WAS APPLIED. PATIENT WAS EXTUBATED AND SENT TO RECOVERY ROOM. Estimated Blood Loss 100 Urine Output 300 Complications No immediate complications Condition Stable Disposition PACU
[2024-02-29] MEDS: fentaNYL CITRATE INJ (*CRX) 100 MCG/2 ML VIAL 25 MCG IV PUSH ×4 (19:44→19:50)
[2024-02-29] MEDS: HYDROmorphone HCL INJ (*CRX) 1 MG/ML SYR IV PUSH (21:01)
[2024-02-29] MEDS: NICOTINE (*PBKC) 21 MG PATCH 1 PATCH TRANSDERM (21:10)
[2024-02-29] MEDS: SENNA/DOCUSATE SODIUM TABLET 2 TAB PO (21:10)
[2024-02-29] MEDS: POTASSIUM CHLORIDE 20 MEQ ER TABLET PO (21:11)
[2024-02-29] MEDS: hydroCHLOROthiazide 12.5 MG CAPSULE PO (21:11)
[2024-02-29] MEDS: ASPIRIN 325 MG ENTERIC TABLET PO (21:11)
[2024-02-29] MEDS: SODIUM CHLORIDE 0.9% IV 1,000 ML 125 ML IV CONT (21:11)
[2024-02-29] MEDS: lisinopriL 20 MG TABLET PO (21:12)
[2024-03-01] VITALS (9 sets, daily range): BP systolic 101–128; BP diastolic 76–96; PULSE 87–117; RESP 15–24; TEMP 36.7–37.2; O2SAT 90–100
[2024-03-01] MEDS: ceFAZolin 2 GM/D5W 50 ML 2 GM/50 ML BAG IVPB ×3 (00:16→16:57)
[2024-03-01] MEDS: diazePAM (*CRX) 5 MG TABLET PO ×2 (00:30→21:12)
[2024-03-01] MEDS: SODIUM CHLORIDE 0.9% IV 1,000 ML 125 ML IV CONT (04:18)
[2024-03-01] MEDS: HYDROmorphone HCL INJ (*CRX) 1 MG/ML SYR IV PUSH ×2 (04:19→12:50)
[2024-03-01 05:44] LABS: Basophils Percent Auto 0.3 % (0.2-1.2); Eosinophils Absolute Auto 0.1 K/mm3 (0-0.3); Eosinophils Percent Auto 0.6 % (0-4.4); Hematocrit 33.4 % (37.0-47.0); Immature Granulocyte Absolute 0.05 K/mm3 (0.00-0.031); Immature Granulocyte Percent A 0.6 % (0-0.5); Lymphocytes Absolute Auto 1.59 K/mm3 (0.9-3.2); Lymphocytes Percent Auto 17.7 % (18.3-44.2); Mean Corpuscular HGB Conc 32.9 g/dl (32-36); Mean Corpuscular Hemoglobin 36.3 pg (26-34); Mean Corpuscular Volume 110.2 fl (80-100); Mean Platelet Volume 9.6 fl (7.4-10.4); Monocytes Percent Auto 11.2 % (2.6-8.5); Neutrophils Absolute Auto 6.3 K/mm3 (1.3-6.7); Neutrophils Percent Auto 69.6 % (45.5-73.1); Platelet Count Result 178 k/mm3 (150-375); Red Blood Count 3.03 M/mm3 (4.2-5.4); Red Cell Distribution Width 16.5 % (11.5-14.5)
[2024-03-01 06:01] LABS: Alanine Aminotransferase 33 U/L (6-35); Albumin Level 2.5 g/dL (3.5-5.1); Alkaline Phosphatase 124 U/L (38-126); Anion Gap 7 mmol/L (4-12); Aspartate Amino Transferase 79 U/L (14-36); Bilirubin,Total 0.6 mg/dL (0.2-1.3); Blood Urea Nitrogen 7 mg/dL (7-17); Carbon Dioxide 20 mmol/L (22-30); Chloride 107 mmol/L (98-107); Estimated CRCL calculation 121 ml/min; Estimated Glomerular Filt Rate > 60; Glucose 107 mg/dL (65-110); Potassium 3.7 mmol/L (3.4-5.0); Sodium 134 mmol/L (137-145)
[2024-03-01 06:32] LABS: Platelet Estimate Adequate (Adequate)
[2024-03-01 06:34] LABS: Anisocytosis 1+; Macrocytosis 2+ (NORMAL); Schistocytes None Seen
--- NOTE | 2024-03-01 08:17 | P.PNIM_ITS ---
Progress Note: A&P Assessment and Plan (1) Intertrochanteric fracture of right femur: Code(s): S72.141A - Displaced intertrochanteric fracture of right femur, initial encounter for closed fracture Status: Acute Assessment and Plan: 02/28/24: * Status post ground level fall * Right hip x-ray showing intratrochanteric fracture of the proximal right femur, mild right hip osteoarthritis * CTA of the right hip showed comminuted intratrochanteric fracture of proximal right femur, mild right hip osteoarthritis, fat stranding around the sigmoid colon representing edema or inflammation/scarring. * Orthopedic consulted * Continue pain control * Continue NPO status * Continue normal saline at 100 mL/hr * Continue Powell catheter * PT and OT ordered * Started Flexeril for muscle spasms * Given 1 time dose of Ibuprofen IV for pain. 02/29/24: * Plan for surgery today * Continue pain control * Orthopedics following * Continue Powell catheter * Continue Flexeril * Continue IV fluids at 100 mL/hr * Continue NPO status 03/01/24: * Patient is postop day 1 from insertion of a trochanteric femoral nail into the right femur with Dr. Jauregui * Continue pain control * PT and OT ordered * DC IV fluids * Continue Flexeril * DC Powell catheter tomorrow when more mobile * Advanced diet as tolerated (2) Frequent falls: Code(s): R29.6 - Repeated falls Status: Acute Assessment and Plan: 02/28/24: * Patient reported a fall 1 week ago injuring her ribs * Reports that her falls are because of past surgery with her left ACL. She states that they removed her ACL?? * PT and OT ordered * see above plan of care 02/29/24: * No change to current treatment plan (3) Acute hypokalemia: Code(s): E87.6 - Hypokalemia Status: Acute Assessment and Plan: 02/28/24: * Potassium 3.1 * Will give 40 mEq of potassium IV today * Will check magnesium today 02/29/24: * Potassium 3.5 * No change to current treatment plan 03/01/24: * Resolved (4) Anxiety: Code(s): F41.9 - Anxiety disorder, unspecified Status: Acute Assessment and Plan: 02/28/24: * Patient was given a dose of Atarax and Ativan while in the ED * Patient does not take anything at home for anxiety 02/29/24: * Continue to monitor 03/01/24: * No change to current treatment plan (5) Hypertension: Code(s): I10 - Essential (primary) hypertension Status: Acute Assessment and Plan: 02/28/24: * Blood pressure ranging 95/73 to 111/81 * Will hold home blood pressure medication due to low blood pressures. 02/29/24: * Blood pressures improved * Restarted home medication 03/01/24: * No change to current treatment plan (6) Asthma: Code(s): J45.909 - Unspecified asthma, uncomplicated Status: Acute Assessment and Plan: 02/28/24: * Continue albuterol rescue inhaler 02/29/24: * No change to current treatment plan (7) Alcohol abuse: Code(s): F10.10 - Alcohol abuse, uncomplicated Status: Acute Assessment and Plan: 02/28/24: * Will check alcohol level * Patient was drinking alcohol yesterday prior to her fall. 02/29/24: * No change to current treatment plan (8) Tobacco abuse: Code(s): Z72.0 - Tobacco use Status: Acute Assessment and Plan: 02/28/24: * Nicotine patch ordered 02/29/24: * No change to current treatment plan Time Spent With Patient
--- NOTE | 2024-03-01 08:17 | PM.IMPN ---
Progress Note: A&P Assessment and Plan (1) Intertrochanteric fracture of right femur: Code(s): S72.141A - Displaced intertrochanteric fracture of right femur, initial encounter for closed fracture Status: Acute Assessment and Plan: 02/28/24: Status post ground level fall Right hip x-ray showing intratrochanteric fracture of the proximal right femur, mild right hip osteoarthritis CTA of the right hip showed comminuted intratrochanteric fracture of proximal right femur, mild right hip osteoarthritis, fat stranding around the sigmoid colon representing edema or inflammation/scarring. Orthopedic consulted Continue pain control Continue NPO status Continue normal saline at 100 mL/hr Continue Powell catheter PT and OT ordered Started Flexeril for muscle spasms Given 1 time dose of Ibuprofen IV for pain. 02/29/24: Plan for surgery today Continue pain control Orthopedics following Continue Powell catheter Continue Flexeril Continue IV fluids at 100 mL/hr Continue NPO status 03/01/24: Patient is postop day 1 from insertion of a trochanteric femoral nail into the right femur with Dr. Jauregui Continue pain control PT and OT ordered DC IV fluids Continue Flexeril DC Powell catheter tomorrow when more mobile Advanced diet as tolerated (2) Frequent falls: Code(s): R29.6 - Repeated falls Status: Acute Assessment and Plan: 02/28/24: Patient reported a fall 1 week ago injuring her ribs Reports that her falls are because of past surgery with her left ACL. She states that they removed her ACL?? PT and OT ordered see above plan of care 02/29/24: No change to current treatment plan (3) Acute hypokalemia: Code(s): E87.6 - Hypokalemia Status: Acute Assessment and Plan: 02/28/24: Potassium 3.1 Will give 40 mEq of potassium IV today Will check magnesium today 02/29/24: Potassium 3.5 No change to current treatment plan 03/01/24: Resolved (4) Anxiety: Code(s): F41.9 - Anxiety disorder, unspecified Status: Acute Assessment and Plan: 02/28/24: Patient was given a dose of Atarax and Ativan while in the ED Patient does not take anything at home for anxiety 02/29/24: Continue to monitor 03/01/24: No change to current treatment plan (5) Hypertension: Code(s): I10 - Essential (primary) hypertension Status: Acute Assessment and Plan: 02/28/24: Blood pressure ranging 95/73 to 111/81 Will hold home blood pressure medication due to low blood pressures. 02/29/24: Blood pressures improved Restarted home medication 03/01/24: No change to current treatment plan (6) Asthma: Code(s): J45.909 - Unspecified asthma, uncomplicated Status: Acute Assessment and Plan: 02/28/24: Continue albuterol rescue inhaler 02/29/24: No change to current treatment plan (7) Alcohol abuse: Code(s): F10.10 - Alcohol abuse, uncomplicated Status: Acute Assessment and Plan: 02/28/24: Will check alcohol level Patient was drinking alcohol yesterday prior to her fall. 02/29/24: No change to current treatment plan (8) Tobacco abuse: Code(s): Z72.0 - Tobacco use Status: Acute Assessment and Plan: 02/28/24: Nicotine patch ordered 02/29/24: No change to current treatment plan Time Spent With Patient Time with patient: 25 - 35 minutes Subjective Date/time seen: 03/01/24 08:17 Interval history: Interval history: This is a 53-year-old female with a significant past medical history of anxiety, arthritis, asthma, hypertension, current daily smoker, marijuana abuse, alcohol abuse who presented to the ER for evaluation after a fall. Patient reports following history of presenting illness. She states that she fell last night when walking to her bedroom. Patient has history of frequent falls which she contributes to having her ACL removed in her left knee. She states th
--- NOTE | 2024-03-01 08:29 | PM.PNORT ---
Progress Note: A&P Assessment and Plan (1) Closed fracture of right hip: Qualifiers: Encounter type: initial encounter Qualified Code(s): S72.001A - Fracture of unspecified part of neck of right femur, initial encounter for closed fracture Code(s): S72.001A - Fracture of unspecified part of neck of right femur, initial encounter for closed fracture Status: Acute Assessment and Plan: POD #1: Right IT femur fx with femoral neck fx extension resulting in right IT femoral nail with long stem for right femur. Start PT/OT. WBAT. Walker. HIGH FALL RISK. Continue pain control. Ice Hip. Protect skin. DVT prophylaxis with Aspirin. SCDs. Incentive Spirometry Use reviewed. Monitor Dressing. Change today, apply ABD for drainage. Bowel Regimen. Dispo: Home with Home Health pending progress with PT/OT Plan Reviewed history, exam, radiographs and current labs with attending MD and covering surgeon, Dr. Jauregui, who agrees with current plan as indicated above. No further recommendations from Dr. Jauregui at this time. Subjective Subjective Date/Time Seen: 03/01/24 08:29 Post Op day: 1 Interval history: POD #1: Right IT femur fx with femoral neck fx extension resulting in right IT femoral nail with long stem for right femur. Patient doing well. Pain well controlled. C/o right knee pain. Right leg swelling. Awaiting PT/OT. Tolerating PO intake well. Other than swelling, no new concerns. Review of Systems Review of Systems: All systems reviewed & are unremarkable except as noted in HPI and below Exam Const: General: comfortable and no acute distress Resp: Effort & Inspection: normal respiratory effort (on 2L NC ) Cardio: Rate: regular rate Rhythm: regular rhythm GI: Inspection: non-distended Skin: General skin exam: normal color Other: Incision right hip c/d/i. Surrounding tissue without redness/warmth. Mild swelling consistent with recent surgery. No drainage. Neuro: Cognition (Neuro): normal cognition Speech: normal speech Extrem: Right lower extremity: normal to inspection, normal capillary refill, hip/thigh Details: tenderness Location: of the hip (Thigh soft ) Location: laterally and anteriorly, swelling Location: at the hip, abnormal ROM (limited consistent with recent surgery ) Details: pain with active ROM during and pain with passive ROM during and other (Incision c/d/i. ); no deformity and no unusual warmth, knee Details: normal to inspection; no tenderness and no swelling, lower leg (Negative Haritha's Sign ) Details: normal to inspection and no edema; no tenderness, ankle (+ankle dorsiflexion/plantarflexion) Details: normal to inspection and no edema; no tenderness, no swelling and no ecchymosis and foot Details: normal capillary refill, toes with normal ROM, vascular exam Details: dorsalis pedis pulse present and motor-sensory exam Details: light-touch normal; no tenderness Objective Data Vital Signs Vital Signs: Vital Signs - 24 hr 02/29/24 14:05 02/29/24 18:55 02/29/24 19:10 Temperature 37.3 C 37.3 C Pulse Rate 108 H 99 100 Respiratory Rate 20 30 H 20 Blood Pressure 137/96 H 113/78 130/82 Pulse Oximetry 94 95 95 Oxygen Delivery Room Air Simple Face Mask Simple Face Mask Oxygen Flow Rate 10 10 02/29/24 19:25 02/29/24 19:40 02/29/24 19:55 Temperature Pulse Rate 102 H 100 98 Respiratory Rate 17 19 15 Blood Pressure 104/68 131/71 126/90 Pulse Oximetry 92 93 93 Oxygen Delivery Nasal Cannula Nasal Cannula Nasal Cannula Oxygen Flow Rate 3 4 4 02/29/24 20:07 02/29/24 20:46 02/29/24 20:58 Temperature 36.4 C 36.7 C 36.5 C Pulse Rate 100 101 H 99 Respiratory Rate 16 20 20 Blood Pressure 134/95 H 121/87 107/68 Pulse Oximetry 95 97 97 Oxygen Delivery Nasal Cannula Oxygen Flow Rate 4 02/29/24 21:32 02/29/24 22:36 03/01/24 02:31 Temperature 36.8 C 36.5 C 37.1 C Pulse Rate 102 H 105 H 107 H Respiratory Rate 20 18 24 H Blood Pressure 130/97 H 131/90
[2024-03-01] MEDS: ASPIRIN 325 MG ENTERIC TABLET PO ×2 (08:58→21:13)
[2024-03-01] MEDS: POTASSIUM CHLORIDE 20 MEQ ER TABLET PO ×2 (08:58→16:43)
[2024-03-01] MEDS: CYCLOBENZAPRINE HCL 10 MG TABLET PO ×2 (08:58→18:38)
[2024-03-01] MEDS: oxyCODONE/ACETAMINOPHEN (*CRX) 10-325 MG TABLET 1 TAB PO ×2 (08:58→18:38)
[2024-03-01] MEDS: PANTOPRAZOLE 40 MG TABLET PO ×2 (08:59→16:43)
[2024-03-01] MEDS: NICOTINE (*PBKC) 21 MG PATCH 1 PATCH TRANSDERM (08:59)
--- NOTE | 2024-03-01 09:38 | WPDANESPN ---
Anes - Prog Note Post-Op Date/Time: 03/01/24 09:38 Cardiovascular status: normal Respiratory status: normal Airway patency: baseline Mental status: baseline Post-Op hydration status: normal Vital Signs: Last Vital Signs Temp 99.0 F 03/01/24 06:00 Pulse 105 H 03/01/24 06:00 Resp 18 03/01/24 06:00 BP 128/91 H 03/01/24 06:00 Pulse Ox 99 03/01/24 06:00 O2 Del Method Nasal Cannula 02/29/24 20:07 O2 Flow Rate 4 02/29/24 20:07 FiO2 21 02/29/24 08:17 Pain Score (VAS): 0/10 I/O: Intake & Output 02/29/24 03/01/24 03/01/24 23:59 07:59 15:59 Intake Total 150 1339.6 Output Total 775 550 Balance -625 789.6 Laboratory Tests 03/01/24 05:33 03/01/24 05:33 03/01/24 05:33 WBC 9.0 RBC 3.03 L Hgb 11.0 L Hct 33.4 L MCV 110.2 H MCH 36.3 H MCHC 32.9 RDW 16.5 H Plt Count 178 MPV 9.6 Immature Gran % (Auto) 0.6 H Neut % (Auto) 69.6 Lymph % (Auto) 17.7 L [place] % (Auto) 11.2 H Eos % (Auto) 0.6 Baso % (Auto) 0.3 Lymph # (Auto) 1.59 [place] # (Auto) 1.0 H Eos # (Auto) 0.1 Baso # (Auto) 0.0 Abs Immat Gran (auto) 0.05 H Absolute Neuts (auto) 6.3 Absolute Nucleated RBC 0.000 Nucleated RBC % 0.0 Platelet Estimate Adequate Anisocytosis 1+ Macrocytosis 2+ Schistocytes None seen Sodium 134 L Potassium 3.7 Chloride 107 Carbon Dioxide 20 L Anion Gap 7 BUN 7 Creatinine 0.50 L Estim Creat Clear Calc 121 Estimated GFR > 60 Glucose 107 Calcium 8.0 L Total Bilirubin 0.6 AST 79 H ALT 33 Alkaline Phosphatase 124 Total Protein 6.0 L Albumin 2.5 L Post-procedural complaints: none Patient Feedback: Patient satisfied with anesthetic care.
--- NOTE | 2024-03-01 13:24 | PC.NURSE ---
On 03/01/24, the student, [Nidia Umana], provided care and completed [facility] documentation on this patient. I have reviewed the student's documentation and agree with the findings.
[2024-03-01] MEDS: lisinopriL 20 MG TABLET PO (21:13)
[2024-03-01] MEDS: hydroCHLOROthiazide 12.5 MG CAPSULE PO (21:13)
[2024-03-02] MEDS: oxyCODONE/ACETAMINOPHEN (*CRX) 10-325 MG TABLET 1 TAB PO ×3 (00:11→17:28)
[2024-03-02] MEDS: oxyCODONE/ACETAMINOPHEN (*CRX) 5-325 MG TABLET 1 TABLET PO ×2 (04:25→20:42)
[2024-03-02 04:46] VITALS: BP 100/68; PULSE 103; RESP 20; TEMP 36.5; O2SAT 94
[2024-03-02 05:25] LABS: Basophils Absolute Auto 0.1 K/mm3 (0.0-0.1); Basophils Percent Auto 0.5 % (0.2-1.2); Eosinophils Absolute Auto 0.2 K/mm3 (0-0.3); Eosinophils Percent Auto 2.5 % (0-4.4); Hematocrit 32.8 % (37.0-47.0); Hemoglobin 10.7 g/dL (12.0-15.0); Immature Granulocyte Absolute 0.08 K/mm3 (0.00-0.031); Immature Granulocyte Percent A 0.8 % (0-0.5); Lymphocytes Absolute Auto 1.98 K/mm3 (0.9-3.2); Lymphocytes Percent Auto 20.4 % (18.3-44.2); Mean Corpuscular HGB Conc 32.6 g/dl (32-36); Mean Corpuscular Hemoglobin 36.4 pg (26-34); Mean Corpuscular Volume 111.6 fl (80-100); Mean Platelet Volume 10.4 fl (7.4-10.4); Monocytes Absolute Auto 1.1 K/mm3 (0.1-0.6); Monocytes Percent Auto 11.3 % (2.6-8.5); Neutrophils Absolute Auto 6.3 K/mm3 (1.3-6.7); Neutrophils Percent Auto 64.5 % (45.5-73.1); Platelet Count Result 176 k/mm3 (150-375); Red Blood Count 2.94 M/mm3 (4.2-5.4); Red Cell Distribution Width 16.7 % (11.5-14.5); White Blood Count 9.7 K/mm3 (4.5-10.0)
[2024-03-02 05:27] LABS: Alanine Aminotransferase 36 U/L (6-35); Albumin Level 2.6 g/dL (3.5-5.1); Alkaline Phosphatase 118 U/L (38-126); Anion Gap 5 mmol/L (4-12); Aspartate Amino Transferase 72 U/L (14-36); Blood Urea Nitrogen 7 mg/dL (7-17); Calcium 7.9 mg/dL (8.4-10.2); Carbon Dioxide 25 mmol/L (22-30); Chloride 99 mmol/L (98-107); Estimated CRCL calculation 121 ml/min; Estimated Glomerular Filt Rate > 60; Glucose 91 mg/dL (65-110); Potassium 3.8 mmol/L (3.4-5.0); Sodium 129 mmol/L (137-145)
[2024-03-02 06:01] LABS: Anisocytosis 1+; Platelet Estimate Adequate (Adequate); Schistocytes None Seen
[2024-03-02 07:24] VITALS: O2SAT 93
[2024-03-02] MEDS: POTASSIUM CHLORIDE 20 MEQ ER TABLET PO ×2 (09:09→17:29)
[2024-03-02] MEDS: NICOTINE (*PBKC) 21 MG PATCH 1 PATCH TRANSDERM (09:09)
[2024-03-02] MEDS: ASPIRIN 325 MG ENTERIC TABLET PO ×2 (09:09→20:42)
[2024-03-02] MEDS: PANTOPRAZOLE 40 MG TABLET PO ×2 (09:09→17:28)
[2024-03-02] MEDS: CYCLOBENZAPRINE HCL 10 MG TABLET PO ×2 (10:42→18:46)
--- NOTE | 2024-03-02 12:45 | PM.PNORT ---
Progress Note: A&P Assessment and Plan (1) Intertrochanteric fracture of right femur: Code(s): S72.141A - Displaced intertrochanteric fracture of right femur, initial encounter for closed fracture Status: Acute Assessment and Plan: POD 2 DOING WELL. SHE IS HAVING SLOW PROGRESS WITH PT. SHE WILL REQUIRE SNF FOR REHAB. SHE MAY BE DISCHARGED FROM AN [facility] STANDPOINT. SHE WILL F/U WITH ORTHO IN 6 WEEKS (2) Femoral neck fracture: Qualifiers: Encounter type: subsequent encounter Fracture type: closed Laterality: right Code(s): S72.009A - Fracture of unspecified part of neck of unspecified femur, initial encounter for closed fracture Status: Acute Subjective Subjective Date/Time Seen: 03/02/24 12:45 Interval history: POD 2 DOING WELL. SHE IS IMPROVING WITH PAIN AND PT. SHE IS LOOKING TO GO TO A SNF FOR REHAB, SHE DENIES ANY CALF PAIN Exam Extrem: Other: VSS AFEBRILE DRESSING DRY NV INTACT THIGH AND CALF SOFT NON TENDER, NEG HOMANS SIGN Objective Data Vital Signs Vital Signs: Vital Signs - 24 hr 03/01/24 14:00 03/01/24 19:57 03/01/24 22:00 Temperature 36.8 C 36.7 C 36.7 C Pulse Rate 87 117 H 117 H Respiratory Rate 18 20 20 Blood Pressure 101/96 H 112/76 112/76 Pulse Oximetry 90 91 91 Oxygen Delivery Fraction of Inspired Oxygen 03/01/24 20:55 03/02/24 04:46 03/02/24 07:24 Temperature 36.5 C Pulse Rate 117 H 103 H Respiratory Rate 20 20 Blood Pressure 100/68 Pulse Oximetry 91 94 93 Oxygen Delivery Room Air Room Air Fraction of Inspired Oxygen 36 21 Intake/Output Intake/Output: Intake & Output 02/28/24 02/29/24 03/01/24 03/02/24 23:59 23:59 23:59 23:59 Intake Total 2713.3 2230 1971.6 480 Output Total 2350 1725 1000 550 Balance 363.3 505 971.6 -70 Meds/Results Medications: Active Medications Generic Name Dose Route Start Last Admin Trade Name Freq PRN Reason Stop Dose Admin Acetaminophen 500 mg 02/29/24 20:14 Acetaminophen 500 Mg Tablet PO Q6H PRN Pain Rated 1-3 Albuterol 2 puff 02/28/24 07:21 02/28/24 20:43 Albuterol Sulfate (*Sp) Aerosol 1 Puff INHALATION 2 puff QID PRN Administration Shortness Of Breath Or Wheezing Aspirin 325 mg 02/29/24 21:00 03/02/24 09:09 Aspirin 325 Mg Enteric Tablet PO 325 mg Q12HR DEIDRA Administration Cyclobenzaprine HCl 10 mg 02/28/24 09:52 03/02/24 10:42 Cyclobenzaprine Hcl 10 Mg Tablet PO 10 mg Q8H PRN Administration Muscle Spasm Diazepam 5 mg 02/29/24 20:14 03/01/24 21:12 Diazepam (*Crx) 5 Mg Tablet PO 5 mg Q8H PRN Administration Muscle Spasm Hydrochlorothiazide 12.5 mg 02/29/24 21:00 03/01/24 21:13 Hydrochlorothiazide 12.5 Mg Capsule PO 12.5 mg HS DEIDRA Administration Hydromorphone HCl 1 mg 02/29/24 20:14 03/01/24 12:50 Hydromorphone Hcl Inj (*Crx) 1 Mg/Ml Syr IV PUSH 1 mg Q2H PRN Administration Breakthrough Pain Rated 7-10 or NPO Hydromorphone HCl 0.5 mg 02/29/24 20:14 Hydromorphone Hcl Inj (*Crx) 1 Mg/Ml Syr IV PUSH Q2H PRN Breakthrough Pain Rated 4-6 or NPO Hydroxyzine Pamoate 50 mg 02/29/24 20:14 Hydroxyzine Pamoate 25 Mg Capsule PO Q4H PRN Itching Ibuprofen 800 mg in 200 mls @ 400 mls/hr 02/29/24 20:14 Caldolor 800 Mg/200 Ml IVPB Q6H PRN Breakthrough Pain Rated 1-3 or NPO Ibuprofen 600 mg 02/29/24 20:14 Ibuprofen 600 Mg Tablet PO Q6H PRN Pain Rated 4-6 Lisinopril 20 mg 02/29/24 21:00 03/01/24 21:13 Lisinopril 20 Mg Tablet PO 20 mg HS DEIDRA Administration Naloxone HCl 0.1 mg 02/29/24 20:14 Naloxone Hcl 0.4 Mg/Ml Vial IV PUSH Q2M PRN Opiate Reversal Nicotine 1 patch 02/28/24 09:00 03/02/24 09:09 Nicotine (*Pbkc) 21 Mg Patch TRANSDERM 1 patch DAILY DEIDRA Administration Ondansetron HCl 4 mg 02/29/24 20:14 02/29/24 21:01 Ondansetron Inj 4 Mg/2 Ml Vial IV PUSH 4 mg Q4H PRN
[2024-03-02 14:00] VITALS: BP 98/69; PULSE 113; RESP 20; TEMP 36.7; O2SAT 97
--- NOTE | 2024-03-02 14:15 | P.PNIM_ITS ---
Progress Note: A&P Assessment and Plan (1) Intertrochanteric fracture of right femur: Code(s): S72.141A - Displaced intertrochanteric fracture of right femur, initial encounter for closed fracture Status: Acute Assessment and Plan: * Patient is postop day 2 from insertion of a trochanteric femoral nail into the right femur with Dr. Jauregui. Surgical dressing intact. * Continue pain control * PT and OT ordered * Continue Flexeril * Voiding well * Regular diet * Will need rehab placement. (2) Frequent falls: Code(s): R29.6 - Repeated falls Status: Acute Assessment and Plan: 02/28/24: * Patient reported a fall 1 week ago injuring her ribs * Reports that her falls are because of past surgery with her left ACL. She states that they removed her ACL?? * PT and OT ordered * see above plan of care 02/29/24: * No change to current treatment plan (3) Acute hypokalemia: Code(s): E87.6 - Hypokalemia Status: Acute Assessment and Plan: 02/28/24: * Potassium 3.1 * Will give 40 mEq of potassium IV today * Will check magnesium today 02/29/24: * Potassium 3.5 * No change to current treatment plan 03/01/24: * Resolved 03/02/24 : - Potassium 3.8 (4) Anxiety: Code(s): F41.9 - Anxiety disorder, unspecified Status: Acute Assessment and Plan: 02/28/24: * Patient was given a dose of Atarax and Ativan while in the ED * Patient does not take anything at home for anxiety 02/29/24: * Continue to monitor 03/01/24: * No change to current treatment plan (5) Hypertension: Code(s): I10 - Essential (primary) hypertension Status: Acute Assessment and Plan: * Blood pressure 100/68 (6) Asthma: Code(s): J45.909 - Unspecified asthma, uncomplicated Status: Acute Assessment and Plan: 02/28/24: * Continue albuterol rescue inhaler 02/29/24: * No change to current treatment plan (7) Alcohol abuse: Code(s): F10.10 - Alcohol abuse, uncomplicated Status: Acute Assessment and Plan: 02/28/24: * Will check alcohol level- 12 * Patient was drinking alcohol yesterday prior to her fall. 02/29/24: * No change to current treatment plan (8) Tobacco abuse: Code(s): Z72.0 - Tobacco use Status: Acute Assessment and Plan: 02/28/24: * Nicotine patch ordered 02/29/24: * No change to current treatment plan Subjective Date/time seen: 03/02/24 14:15 Interval history: Patient reports pain in her right hip that is a 9 , pain is constant, aching, and throbbing. Reports having a bowel movement this morning. Denies chest pain, palpitations, shortness of breath, nausea, vomiting, or numbness. Review of Systems Review of Systems: All systems reviewed & are unremarkable except as noted in HPI and below Exam Const: General: uncomfortable Eyes: Sclera: sclerae normal Resp: Auscultation: rhonchi (bilaterally ) Skin: Other: Surgical incision right hip with OR dressing. Neuro: Speech: normal speech Psych: Mental Status: mental status grossly normal Affect: normal affect Objective Data Vital Signs Vital Signs: Vital Signs - 24 hr 03/01/24 19:57 03/01/24 22:00 03/01/24 20:55 Temperature 98.1 F 98.1 F
--- NOTE | 2024-03-02 14:15 | PM.IMPN ---
Progress Note: A&P Assessment and Plan (1) Intertrochanteric fracture of right femur: Code(s): S72.141A - Displaced intertrochanteric fracture of right femur, initial encounter for closed fracture Status: Acute Assessment and Plan: Patient is postop day 2 from insertion of a trochanteric femoral nail into the right femur with Dr. Jauregui. Surgical dressing intact. Continue pain control PT and OT ordered Continue Flexeril Voiding well Regular diet Will need rehab placement. (2) Frequent falls: Code(s): R29.6 - Repeated falls Status: Acute Assessment and Plan: 02/28/24: Patient reported a fall 1 week ago injuring her ribs Reports that her falls are because of past surgery with her left ACL. She states that they removed her ACL?? PT and OT ordered see above plan of care 02/29/24: No change to current treatment plan (3) Acute hypokalemia: Code(s): E87.6 - Hypokalemia Status: Acute Assessment and Plan: 02/28/24: Potassium 3.1 Will give 40 mEq of potassium IV today Will check magnesium today 02/29/24: Potassium 3.5 No change to current treatment plan 03/01/24: Resolved 03/02/24 : - Potassium 3.8 (4) Anxiety: Code(s): F41.9 - Anxiety disorder, unspecified Status: Acute Assessment and Plan: 02/28/24: Patient was given a dose of Atarax and Ativan while in the ED Patient does not take anything at home for anxiety 02/29/24: Continue to monitor 03/01/24: No change to current treatment plan (5) Hypertension: Code(s): I10 - Essential (primary) hypertension Status: Acute Assessment and Plan: Blood pressure 100/68 (6) Asthma: Code(s): J45.909 - Unspecified asthma, uncomplicated Status: Acute Assessment and Plan: 02/28/24: Continue albuterol rescue inhaler 02/29/24: No change to current treatment plan (7) Alcohol abuse: Code(s): F10.10 - Alcohol abuse, uncomplicated Status: Acute Assessment and Plan: 02/28/24: Will check alcohol level- 12 Patient was drinking alcohol yesterday prior to her fall. 02/29/24: No change to current treatment plan (8) Tobacco abuse: Code(s): Z72.0 - Tobacco use Status: Acute Assessment and Plan: 02/28/24: Nicotine patch ordered 02/29/24: No change to current treatment plan Subjective Date/time seen: 03/02/24 14:15 Interval history: Patient reports pain in her right hip that is a 9 , pain is constant, aching, and throbbing. Reports having a bowel movement this morning. Denies chest pain, palpitations, shortness of breath, nausea, vomiting, or numbness. Review of Systems Review of Systems: All systems reviewed & are unremarkable except as noted in HPI and below Exam Const: General: uncomfortable Eyes: Sclera: sclerae normal Resp: Auscultation: rhonchi (bilaterally ) Skin: Other: Surgical incision right hip with OR dressing. Neuro: Speech: normal speech Psych: Mental Status: mental status grossly normal Affect: normal affect Objective Data Vital Signs Vital Signs: Vital Signs - 24 hr 03/01/24 19:57 03/01/24 22:00 03/01/24 20:55 Temperature 98.1 F 98.1 F Pulse Rate 117 H 117 H 117 H Respiratory Rate 20 20 20 Blood Pressure 112/76 112/76 Pulse Oximetry 91 91 91 Oxygen Delivery Room Air Fraction of Inspired Oxygen 36 03/02/24 04:46 03/02/24 07:24 Temperature 97.7 F Pulse Rate 103 H Respiratory Rate 20 Blood Pressure 100/68 Pulse Oximetry 94 93 Oxygen Delivery Room Air Fraction of Inspired Oxygen 21 Intake/Output Intake/Output: Intake & Output 02/28/24 02/29/24 03/01/24 03/02/24 23:59 23:59 23:59 23:59 Intake Total 2713.3 2230 1971.6 480 Output Total 2350 1725 1000 550 Balance 363.3 505 971.6 -70 Meds/Results Medications: Active Medications Generic Name Dose Route Start Last Admin Trade Name Jesi SPANN Re
[2024-03-02 20:30] VITALS: PULSE 103; RESP 17; O2SAT 97
[2024-03-02] MEDS: lisinopriL 20 MG TABLET PO (20:42)
[2024-03-02] MEDS: hydroCHLOROthiazide 12.5 MG CAPSULE PO (20:42)
[2024-03-02 20:44] VITALS: BP 111/66; PULSE 103; RESP 17; TEMP 36.8; O2SAT 97
[2024-03-02 21:24] VITALS: O2SAT 97
[2024-03-03] MEDS: oxyCODONE/ACETAMINOPHEN (*CRX) 10-325 MG TABLET 1 TAB PO ×4 (00:44→22:07)
[2024-03-03 04:35] VITALS: BP 111/72; PULSE 115; RESP 18; TEMP 36.5; O2SAT 100
[2024-03-03] MEDS: CALCIUM CARBONATE (TUMS) 500 MG (200 MG ELEMENTAL) PO (05:58)
[2024-03-03 06:02] LABS: Basophils Percent Auto 0.4 % (0.2-1.2); Eosinophils Absolute Auto 0.2 K/mm3 (0-0.3); Eosinophils Percent Auto 1.9 % (0-4.4); Hematocrit 31.8 % (37.0-47.0); Hemoglobin 10.5 g/dL (12.0-15.0); Immature Granulocyte Percent A 1.1 % (0-0.5); Lymphocytes Absolute Auto 1.51 K/mm3 (0.9-3.2); Lymphocytes Percent Auto 16.9 % (18.3-44.2); Mean Corpuscular Hemoglobin 36.8 pg (26-34); Mean Corpuscular Volume 111.6 fl (80-100); Mean Platelet Volume 10.6 fl (7.4-10.4); Monocytes Absolute Auto 0.9 K/mm3 (0.1-0.6); Monocytes Percent Auto 9.7 % (2.6-8.5); Neutrophils Absolute Auto 6.3 K/mm3 (1.3-6.7); Platelet Count Result 185 k/mm3 (150-375); Red Blood Count 2.85 M/mm3 (4.2-5.4); Red Cell Distribution Width 16.2 % (11.5-14.5)
[2024-03-03 06:12] LABS: Alanine Aminotransferase 33 U/L (6-35); Albumin Level 2.5 g/dL (3.5-5.1); Alkaline Phosphatase 114 U/L (38-126); Anion Gap 4 mmol/L (4-12); Aspartate Amino Transferase 56 U/L (14-36); Bilirubin,Total 0.7 mg/dL (0.2-1.3); Blood Urea Nitrogen 8 mg/dL (7-17); Calcium 8.2 mg/dL (8.4-10.2); Carbon Dioxide 26 mmol/L (22-30); Chloride 102 mmol/L (98-107); Estimated CRCL calculation 121 ml/min; Estimated Glomerular Filt Rate > 60; Glucose 95 mg/dL (65-110); Potassium 3.3 mmol/L (3.4-5.0); Sodium 132 mmol/L (137-145)
[2024-03-03 07:17] LABS: Anisocytosis 2+; Macrocytosis 2+ (NORMAL); Platelet Estimate Adequate (Adequate); Schistocytes None Seen
[2024-03-03 08:03] LABS: Magnesium 1.7 mg/dL (1.6-2.3)
[2024-03-03] MEDS: PANTOPRAZOLE 40 MG TABLET PO ×2 (08:39→17:12)
[2024-03-03] MEDS: POTASSIUM CHLORIDE 20 MEQ ER TABLET PO ×3 (08:39→17:12)
[2024-03-03] MEDS: ASPIRIN 325 MG ENTERIC TABLET PO ×2 (08:39→20:00)
[2024-03-03] MEDS: CYCLOBENZAPRINE HCL 10 MG TABLET PO ×2 (08:39→17:12)
[2024-03-03] MEDS: NICOTINE (*PBKC) 21 MG PATCH 1 PATCH TRANSDERM (08:40)
--- NOTE | 2024-03-03 09:25 | PM.PNORT ---
Progress Note: A&P Assessment and Plan (1) Closed fracture of right hip: Qualifiers: Encounter type: initial encounter Qualified Code(s): S72.001A - Fracture of unspecified part of neck of right femur, initial encounter for closed fracture Code(s): S72.001A - Fracture of unspecified part of neck of right femur, initial encounter for closed fracture Status: Acute Assessment and Plan: POD #3: Right IT femur fx with femoral neck fx extension resulting in right IT femoral nail with long stem for right femur. PT/OT. WBAT. Walker. HIGH FALL RISK. Continue pain control. Ice Hip. Protect skin. DVT prophylaxis with Aspirin. SCDs. Incentive Spirometry Use reviewed. Monitor Dressing. Change today, apply ABD for drainage. Bowel Regimen. Dispo: Home with Home Health pending progress with PT/OT Plan Reviewed history, exam, radiographs and current labs with attending MD and covering surgeon, Dr. Jauregui, who agrees with current plan as indicated above. No further recommendations from Dr. Jauregui at this time. Subjective Subjective Date/Time Seen: 03/03/24 09:25 Post Op day: 3 Interval history: POD #3: Right IT femur fx with femoral neck fx extension resulting in right IT femoral nail with long stem for right femur. Patient doing well. Pain well controlled. C/o right knee pain. Right leg swelling. PT/OT. Tolerating PO intake well. Other than swelling, no new concerns. Hopeful for d/c to rehab. Review of Systems Review of Systems: All systems reviewed & are unremarkable except as noted in HPI and below Exam Const: General: comfortable and no acute distress Cardio: Rate: regular rate Rhythm: regular rhythm GI: Inspection: non-distended Skin: General skin exam: normal color Other: Incision right hip c/d/i. Surrounding tissue without redness/warmth. Mild swelling consistent with recent surgery. No drainage. Neuro: Cognition (Neuro): normal cognition Speech: normal speech Extrem: Right lower extremity: normal to inspection, normal capillary refill, hip/thigh Details: tenderness Location: of the hip (Thigh soft ) Location: laterally and anteriorly, swelling Location: at the hip, abnormal ROM (limited consistent with recent surgery ) Details: pain with active ROM during and pain with passive ROM during and other (Incision c/d/i. ); no deformity and no unusual warmth, knee Details: normal to inspection; no tenderness and no swelling, lower leg (Negative Haritha's Sign ) Details: normal to inspection and no edema; no tenderness, ankle (+ankle dorsiflexion/plantarflexion) Details: normal to inspection and no edema; no tenderness, no swelling and no ecchymosis and foot Details: normal capillary refill, toes with normal ROM, vascular exam Details: dorsalis pedis pulse present and motor-sensory exam Details: light-touch normal; no tenderness Objective Data Vital Signs Vital Signs: Vital Signs - 24 hr 03/02/24 14:00 03/02/24 20:44 03/02/24 20:30 Temperature 36.7 C 36.8 C Pulse Rate 113 H 103 H 103 H Respiratory Rate 20 17 17 Blood Pressure 98/69 L 111/66 Pulse Oximetry 97 97 97 Oxygen Delivery Room Air Fraction of Inspired Oxygen 21 03/02/24 21:24 03/03/24 04:35 Temperature 36.5 C Pulse Rate 115 H Respiratory Rate 18 Blood Pressure 111/72 Pulse Oximetry 97 100 Oxygen Delivery Room Air Fraction of Inspired Oxygen Intake/Output Intake/Output: Intake & Output 02/29/24 03/01/24 03/02/24 03/03/24 23:59 23:59 23:59 23:59 Intake Total 2230 1971.6 1460 150 Output Total 1725 1000 550 400 Balance 505 971.6 910 -250 Meds/Results Medications: Active Medications Generic Name Dose Route Start Last Admin Trade Name Freq PRN Reason Stop Dose Admin Acetaminophen 500 mg 02/29/24 20:14 Acetaminophen 500 Mg Tablet PO Q6H PRN Pain Rated 1-3 Albuterol 2 puff 02/28/24 07:21 02/28/24 20:43 Albuterol Sulfate (*Sp) Aerosol 1 Puff INHALATION 2 puff
[2024-03-03 14:00] VITALS: BP 115/70; PULSE 70; RESP 14; TEMP 36.2; O2SAT 100
--- NOTE | 2024-03-03 14:00 | P.PNIM_ITS ---
Progress Note: A&P Assessment and Plan (1) Intertrochanteric fracture of right femur: Code(s): S72.141A - Displaced intertrochanteric fracture of right femur, initial encounter for closed fracture Status: Acute Assessment and Plan: * Patient is postop day 2 from insertion of a trochanteric femoral nail into the right femur with Dr. Jauregui. Surgical dressing intact. * Continue pain control * PT/OT * Continue Flexeril * Voiding well * Regular diet * Will need rehab placement. (2) Frequent falls: Code(s): R29.6 - Repeated falls Status: Acute Assessment and Plan: 02/28/24: * Patient reported a fall 1 week ago injuring her ribs * Reports that her falls are because of past surgery with her left ACL. She states that they removed her ACL?? * PT and OT ordered * see above plan of care 02/29/24: * No change to current treatment plan Continue PT/OT (3) Dizziness: Code(s): R42 - Dizziness and giddiness Status: Acute Assessment and Plan: * hydrate * PT/OT * Up with assistance * Monitor blood pressure (4) Acute hypokalemia: Code(s): E87.6 - Hypokalemia Status: Acute Assessment and Plan: 02/28/24: * Potassium 3.1 * Will give 40 mEq of potassium IV today * Will check magnesium today 02/29/24: * Potassium 3.5 * No change to current treatment plan 03/01/24: * Resolved 03/02/24 : - Potassium 3.8 03/03/24: * Potassium 3.3 * Gave additional Potassium Chloride 20 meq PO x1. * Monitor labs (5) Anxiety: Code(s): F41.9 - Anxiety disorder, unspecified Status: Acute Assessment and Plan: 02/28/24: * Patient was given a dose of Atarax and Ativan while in the ED * Patient does not take anything at home for anxiety 02/29/24: * Continue to monitor 03/01/24: * No change to current treatment plan (6) Hypertension: Code(s): I10 - Essential (primary) hypertension Status: Acute Assessment and Plan: * Blood pressure 111/72 (7) Asthma: Code(s): J45.909 - Unspecified asthma, uncomplicated Status: Acute Assessment and Plan: 02/28/24: * Continue albuterol rescue inhaler 02/29/24: * No change to current treatment plan (8) Alcohol abuse: Code(s): F10.10 - Alcohol abuse, uncomplicated Status: Acute Assessment and Plan: 02/28/24: * Will check alcohol level- 12 * Patient was drinking alcohol yesterday prior to her fall. 02/29/24: * No change to current treatment plan (9) Tobacco abuse: Code(s): Z72.0 - Tobacco use Status: Acute Assessment and Plan: 02/28/24: * Nicotine patch ordered 02/29/24: * No change to current treatment plan Subjective Date/time seen: 03/03/24 14:00 Interval history: Patient reports pain in her right hip that is a 7 , pain is frequent, and burning. Reports having a bowel movement this morning. Denies chest pain, palpitations, shortness of breath, nausea, vomiting, or numbness. Reports dizziness at times. Review of Systems Review of Systems: All systems reviewed & are unremarkable except as noted in HPI and below Exam Const: General: no acute distress Eyes: Sclera: sclerae normal Resp: Auscultation: rhonchi (bilaterally faint) Cardio: Rate: regular rate Rhythm: regular rhythm GI: GI Palp: Yes S
--- NOTE | 2024-03-03 14:00 | PM.IMPN ---
Progress Note: A&P Assessment and Plan (1) Intertrochanteric fracture of right femur: Code(s): S72.141A - Displaced intertrochanteric fracture of right femur, initial encounter for closed fracture Status: Acute Assessment and Plan: Patient is postop day 2 from insertion of a trochanteric femoral nail into the right femur with Dr. Jauregui. Surgical dressing intact. Continue pain control PT/OT Continue Flexeril Voiding well Regular diet Will need rehab placement. (2) Frequent falls: Code(s): R29.6 - Repeated falls Status: Acute Assessment and Plan: 02/28/24: Patient reported a fall 1 week ago injuring her ribs Reports that her falls are because of past surgery with her left ACL. She states that they removed her ACL?? PT and OT ordered see above plan of care 02/29/24: No change to current treatment plan Continue PT/OT (3) Dizziness: Code(s): R42 - Dizziness and giddiness Status: Acute Assessment and Plan: hydrate PT/OT Up with assistance Monitor blood pressure (4) Acute hypokalemia: Code(s): E87.6 - Hypokalemia Status: Acute Assessment and Plan: 02/28/24: Potassium 3.1 Will give 40 mEq of potassium IV today Will check magnesium today 02/29/24: Potassium 3.5 No change to current treatment plan 03/01/24: Resolved 03/02/24 : - Potassium 3.8 03/03/24: Potassium 3.3 Gave additional Potassium Chloride 20 meq PO x1. Monitor labs (5) Anxiety: Code(s): F41.9 - Anxiety disorder, unspecified Status: Acute Assessment and Plan: 02/28/24: Patient was given a dose of Atarax and Ativan while in the ED Patient does not take anything at home for anxiety 02/29/24: Continue to monitor 03/01/24: No change to current treatment plan (6) Hypertension: Code(s): I10 - Essential (primary) hypertension Status: Acute Assessment and Plan: Blood pressure 111/72 (7) Asthma: Code(s): J45.909 - Unspecified asthma, uncomplicated Status: Acute Assessment and Plan: 02/28/24: Continue albuterol rescue inhaler 02/29/24: No change to current treatment plan (8) Alcohol abuse: Code(s): F10.10 - Alcohol abuse, uncomplicated Status: Acute Assessment and Plan: 02/28/24: Will check alcohol level- 12 Patient was drinking alcohol yesterday prior to her fall. 02/29/24: No change to current treatment plan (9) Tobacco abuse: Code(s): Z72.0 - Tobacco use Status: Acute Assessment and Plan: 02/28/24: Nicotine patch ordered 02/29/24: No change to current treatment plan Subjective Date/time seen: 03/03/24 14:00 Interval history: Patient reports pain in her right hip that is a 7 , pain is frequent, and burning. Reports having a bowel movement this morning. Denies chest pain, palpitations, shortness of breath, nausea, vomiting, or numbness. Reports dizziness at times. Review of Systems Review of Systems: All systems reviewed & are unremarkable except as noted in HPI and below Exam Const: General: no acute distress Eyes: Sclera: sclerae normal Resp: Auscultation: rhonchi (bilaterally faint) Cardio: Rate: regular rate Rhythm: regular rhythm GI: GI Palp: Yes Soft to palpation Auscultation: normal bowel sounds Skin: Other: Surgical incision right hip with OR dressing. Neuro: Speech: normal speech Sensory Exam: normal sensation Extrem: General: edema right and pedal edema on the right (nidhi) Other: leg and ankle trace edema Psych: Affect: normal affect Objective Data Vital Signs Vital Signs: Vital Signs - 24 hr 03/02/24 20:44 03/02/24 20:30 03/02/24 21:24 Temperature 98.3 F Pulse Rate 103 H 103 H Respiratory Rate 17 17 Blood Pressure 111/66 Pulse Oximetry 97 97 97 Oxygen Delivery Room Air Room Air Fraction of Inspired Oxygen 03/03/24 04:35 03/03/24
[2024-03-03 19:47] VITALS: BP 98/52; PULSE 108; RESP 18; TEMP 36.5; O2SAT 100
[2024-03-03 20:00] VITALS: PULSE 108; RESP 18; O2SAT 100
[2024-03-03] MEDS: lisinopriL 20 MG TABLET PO (20:00)
[2024-03-03] MEDS: hydroCHLOROthiazide 12.5 MG CAPSULE PO (20:00)
[2024-03-03] MEDS: oxyCODONE/ACETAMINOPHEN (*CRX) 5-325 MG TABLET 1 TABLET PO (20:00)
[2024-03-04] MEDS: oxyCODONE/ACETAMINOPHEN (*CRX) 5-325 MG TABLET 1 TABLET PO ×2 (02:30→15:52)
[2024-03-04 05:53] LABS: Basophils Percent Auto 0.4 % (0.2-1.2); Eosinophils Absolute Auto 0.1 K/mm3 (0-0.3); Eosinophils Percent Auto 1.5 % (0-4.4); Hematocrit 29.9 % (37.0-47.0); Hemoglobin 9.9 g/dL (12.0-15.0); Immature Granulocyte Absolute 0.07 K/mm3 (0.00-0.031); Immature Granulocyte Percent A 0.7 % (0-0.5); Lymphocytes Absolute Auto 1.42 K/mm3 (0.9-3.2); Lymphocytes Percent Auto 15.2 % (18.3-44.2); Mean Corpuscular HGB Conc 33.1 g/dl (32-36); Mean Corpuscular Hemoglobin 37.2 pg (26-34); Mean Corpuscular Volume 112.4 fl (80-100); Monocytes Percent Auto 10.2 % (2.6-8.5); Neutrophils Absolute Auto 6.7 K/mm3 (1.3-6.7); Platelet Count Result 202 k/mm3 (150-375); Red Blood Count 2.66 M/mm3 (4.2-5.4); Red Cell Distribution Width 16.2 % (11.5-14.5); White Blood Count 9.4 K/mm3 (4.5-10.0)
[2024-03-04 06:00] VITALS: BP 90/53; PULSE 91; RESP 18; TEMP 36.7; O2SAT 99
[2024-03-04 06:08] LABS: Alanine Aminotransferase 29 U/L (6-35); Albumin Level 2.6 g/dL (3.5-5.1); Alkaline Phosphatase 110 U/L (38-126); Anion Gap 5 mmol/L (4-12); Aspartate Amino Transferase 47 U/L (14-36); Bilirubin,Total 0.7 mg/dL (0.2-1.3); Blood Urea Nitrogen 10 mg/dL (7-17); Calcium 8.1 mg/dL (8.4-10.2); Carbon Dioxide 25 mmol/L (22-30); Chloride 102 mmol/L (98-107); Estimated CRCL calculation 147 ml/min; Estimated Glomerular Filt Rate > 60; Glucose 91 mg/dL (65-110); Potassium 3.6 mmol/L (3.4-5.0); Sodium 132 mmol/L (137-145)
[2024-03-04 06:53] LABS: Hypochromasia 1+; Platelet Estimate Adequate (Adequate)
[2024-03-04 06:54] LABS: Macrocytosis 2+ (NORMAL); Schistocytes None Seen
[2024-03-04] MEDS: ASPIRIN 325 MG ENTERIC TABLET PO ×2 (08:17→21:00)
[2024-03-04] MEDS: oxyCODONE/ACETAMINOPHEN (*CRX) 10-325 MG TABLET 1 TAB PO ×2 (08:17→20:59)
[2024-03-04] MEDS: PANTOPRAZOLE 40 MG TABLET PO ×2 (08:17→17:42)
[2024-03-04] MEDS: POTASSIUM CHLORIDE 20 MEQ ER TABLET PO ×2 (08:17→17:42)
[2024-03-04] MEDS: CYCLOBENZAPRINE HCL 10 MG TABLET PO (08:18)
[2024-03-04] MEDS: NICOTINE (*PBKC) 21 MG PATCH 1 PATCH TRANSDERM (08:19)
--- NOTE | 2024-03-04 09:13 | PM.PNORT ---
Progress Note: A&P Assessment and Plan (1) Closed fracture of right hip: Qualifiers: Encounter type: initial encounter Qualified Code(s): S72.001A - Fracture of unspecified part of neck of right femur, initial encounter for closed fracture Code(s): S72.001A - Fracture of unspecified part of neck of right femur, initial encounter for closed fracture Status: Acute Assessment and Plan: POD #4: Right IT femur fx with femoral neck fx extension resulting in right IT femoral nail with long stem. PT/OT. WBAT. Walker. HIGH FALL RISK. Continue pain control. Ice Hip. Protect skin. DVT prophylaxis with Aspirin. SCDs. Incentive Spirometry Use reviewed. Monitor Dressing. Change today, apply ABD for drainage. Bowel Regimen. Dispo: Home with Home Health pending progress with PT/OT Plan Reviewed history, exam, radiographs and current labs with attending MD and covering surgeon, Dr. Jauregui, who agrees with current plan as indicated above. No further recommendations from Dr. Jauregui at this time. Subjective Subjective Date/Time Seen: 03/04/24 09:13 Post Op day: 4 Interval history: POD #4: Right IT femur fx with femoral neck fx extension resulting in right IT femoral nail with long stem for right femur. Patient doing well. Pain well controlled. C/o right knee pain. Right leg swelling. PT/OT. Tolerating PO intake well. Other than swelling, no new concerns. Hopeful for d/c. Now questioning if she can go home with home health. Review of Systems Review of Systems: All systems reviewed & are unremarkable except as noted in HPI and below Exam Const: General: comfortable and no acute distress Cardio: Rate: regular rate Rhythm: regular rhythm GI: Inspection: non-distended Skin: General skin exam: normal color Other: Incision right hip c/d/i. Surrounding tissue without redness/warmth. Mild swelling consistent with recent surgery. No drainage. Neuro: Cognition (Neuro): normal cognition Speech: normal speech Extrem: Right lower extremity: normal to inspection, normal capillary refill, hip/thigh Details: tenderness Location: of the hip (Thigh soft ) Location: laterally and anteriorly, swelling Location: at the hip, abnormal ROM (limited consistent with recent surgery ) Details: pain with active ROM during and pain with passive ROM during and other (Incision c/d/i. ); no deformity and no unusual warmth, knee Details: normal to inspection; no tenderness and no swelling, lower leg (Negative Haritha's Sign ) Details: normal to inspection and no edema; no tenderness, ankle (+ankle dorsiflexion/plantarflexion) Details: normal to inspection and no edema; no tenderness, no swelling and no ecchymosis and foot Details: normal capillary refill, toes with normal ROM, vascular exam Details: dorsalis pedis pulse present and motor-sensory exam Details: light-touch normal; no tenderness Objective Data Vital Signs Vital Signs: Vital Signs - 24 hr 03/03/24 14:00 03/03/24 19:47 03/03/24 20:00 Temperature 36.2 C L 36.5 C Pulse Rate 70 108 H 108 H Respiratory Rate 14 18 18 Blood Pressure 115/70 98/52 L Pulse Oximetry 100 100 100 Oxygen Delivery Room Air Fraction of Inspired Oxygen 21 03/04/24 06:00 Temperature 36.7 C Pulse Rate 91 Respiratory Rate 18 Blood Pressure 90/53 L Pulse Oximetry 99 Oxygen Delivery Fraction of Inspired Oxygen Intake/Output Intake/Output: Intake & Output 03/01/24 03/02/24 03/03/24 03/04/24 23:59 23:59 23:59 23:59 Intake Total 1971.6 1460 2210 200 Output Total 1000 550 400 Balance 971.6 910 1810 200 Meds/Results Medications: Active Medications Generic Name Dose Route Start Last Admin Trade Name Freq PRN Reason Stop Dose Admin Acetaminophen 500 mg 02/29/24 20:14 Acetaminophen 500 Mg Tablet PO Q6H PRN Pain Rated 1-3 Albuterol 2 puff 02/28/24 07:21 02/28/24 20:43 Albuterol Sulfate (*Sp) Aerosol 1 Puff INHALATION 2 puff QID PRN
[2024-03-04] MEDS: IBUPROFEN 600 MG TABLET PO (12:44)
--- NOTE | 2024-03-04 13:03 | P.PNIM_ITS ---
Progress Note: A&P Assessment and Plan (1) Intertrochanteric fracture of right femur: Code(s): S72.141A - Displaced intertrochanteric fracture of right femur, initial encounter for closed fracture Status: Acute Assessment and Plan: * Patient is postop day 4 from insertion of a trochanteric femoral nail into the right femur with Dr. Jauregui. Gauze covered in transparent dressing intact. * Continue pain control * PT/OT * Continue Flexeril * Voiding well * Regular diet * Will need rehab placement. (2) Frequent falls: Code(s): R29.6 - Repeated falls Status: Acute Assessment and Plan: 02/28/24: * Patient reported a fall 1 week ago injuring her ribs * Reports that her falls are because of past surgery with her left ACL. She states that they removed her ACL?? * PT and OT ordered * see above plan of care 02/29/24: * No change to current treatment plan Continue PT/OT (3) Dizziness: Code(s): R42 - Dizziness and giddiness Status: Acute Assessment and Plan: * Denies dizziness today * hydrate * PT/OT * Up with assistance * Monitor blood pressure (4) Acute hypokalemia: Code(s): E87.6 - Hypokalemia Status: Acute Assessment and Plan: 02/28/24: * Potassium 3.1 * Will give 40 mEq of potassium IV today * Will check magnesium today 02/29/24: * Potassium 3.5 * No change to current treatment plan 03/01/24: * Resolved 03/02/24 : - Potassium 3.8 03/03/24: * Potassium 3.3 * Gave additional Potassium Chloride 20 meq PO x1. 03/04/24: * Potassium 3.6 * Monitor labs. (5) Anxiety: Code(s): F41.9 - Anxiety disorder, unspecified Status: Acute Assessment and Plan: 02/28/24: * Patient was given a dose of Atarax and Ativan while in the ED * Patient does not take anything at home for anxiety 02/29/24: * Continue to monitor 03/01/24: * No change to current treatment plan (6) Hypertension: Code(s): I10 - Essential (primary) hypertension Status: Acute Assessment and Plan: * Blood pressure 98/59 * monitor blood pressures (7) Asthma: Code(s): J45.909 - Unspecified asthma, uncomplicated Status: Acute Assessment and Plan: 02/28/24: * Continue albuterol rescue inhaler 02/29/24: * No change to current treatment plan (8) Alcohol abuse: Code(s): F10.10 - Alcohol abuse, uncomplicated Status: Acute Assessment and Plan: 02/28/24: * Will check alcohol level- 12 * Patient was drinking alcohol yesterday prior to her fall. 02/29/24: * No change to current treatment plan (9) Tobacco abuse: Code(s): Z72.0 - Tobacco use Status: Acute Assessment and Plan: 02/28/24: * Nicotine patch ordered 02/29/24: * No change to current treatment plan Subjective Date/time seen: 03/04/24 13:03 Interval history: Denies pain. Reports having a bowel movement this morning. Denies chest pain, palpitations, shortness of breath, nausea, vomiting, headache, or dizziness. Patient reports that she is improving with physical therapy. Review of Systems Review of Systems: All systems reviewed & are unremarkable except as noted in HPI and below Exam Const: General: comfortable and no acute distress Eyes: Sclera: sclerae normal Neck: Neck: supple Resp: Other:
--- NOTE | 2024-03-04 13:03 | PM.IMPN ---
Progress Note: A&P Assessment and Plan (1) Intertrochanteric fracture of right femur: Code(s): S72.141A - Displaced intertrochanteric fracture of right femur, initial encounter for closed fracture Status: Acute Assessment and Plan: Patient is postop day 4 from insertion of a trochanteric femoral nail into the right femur with Dr. Jauregui. Gauze covered in transparent dressing intact. Continue pain control PT/OT Continue Flexeril Voiding well Regular diet Will need rehab placement. (2) Frequent falls: Code(s): R29.6 - Repeated falls Status: Acute Assessment and Plan: 02/28/24: Patient reported a fall 1 week ago injuring her ribs Reports that her falls are because of past surgery with her left ACL. She states that they removed her ACL?? PT and OT ordered see above plan of care 02/29/24: No change to current treatment plan Continue PT/OT (3) Dizziness: Code(s): R42 - Dizziness and giddiness Status: Acute Assessment and Plan: Denies dizziness today hydrate PT/OT Up with assistance Monitor blood pressure (4) Acute hypokalemia: Code(s): E87.6 - Hypokalemia Status: Acute Assessment and Plan: 02/28/24: Potassium 3.1 Will give 40 mEq of potassium IV today Will check magnesium today 02/29/24: Potassium 3.5 No change to current treatment plan 03/01/24: Resolved 03/02/24 : - Potassium 3.8 03/03/24: Potassium 3.3 Gave additional Potassium Chloride 20 meq PO x1. 03/04/24: Potassium 3.6 Monitor labs. (5) Anxiety: Code(s): F41.9 - Anxiety disorder, unspecified Status: Acute Assessment and Plan: 02/28/24: Patient was given a dose of Atarax and Ativan while in the ED Patient does not take anything at home for anxiety 02/29/24: Continue to monitor 03/01/24: No change to current treatment plan (6) Hypertension: Code(s): I10 - Essential (primary) hypertension Status: Acute Assessment and Plan: Blood pressure 98/59 monitor blood pressures (7) Asthma: Code(s): J45.909 - Unspecified asthma, uncomplicated Status: Acute Assessment and Plan: 02/28/24: Continue albuterol rescue inhaler 02/29/24: No change to current treatment plan (8) Alcohol abuse: Code(s): F10.10 - Alcohol abuse, uncomplicated Status: Acute Assessment and Plan: 02/28/24: Will check alcohol level- 12 Patient was drinking alcohol yesterday prior to her fall. 02/29/24: No change to current treatment plan (9) Tobacco abuse: Code(s): Z72.0 - Tobacco use Status: Acute Assessment and Plan: 02/28/24: Nicotine patch ordered 02/29/24: No change to current treatment plan Subjective Date/time seen: 03/04/24 13:03 Interval history: Denies pain. Reports having a bowel movement this morning. Denies chest pain, palpitations, shortness of breath, nausea, vomiting, headache, or dizziness. Patient reports that she is improving with physical therapy. Review of Systems Review of Systems: All systems reviewed & are unremarkable except as noted in HPI and below Exam Const: General: comfortable and no acute distress Eyes: Sclera: sclerae normal Neck: Neck: supple Resp: Other: slightly diminished in the bases Cardio: Rate: regular rate Rhythm: regular rhythm GI: GI Palp: Yes Soft to palpation Auscultation: normal bowel sounds : Other: voiding without difficulty Skin: Other: surgical incision right hip and side of right knee with gauze and transparent dressing. Mild swelling. Neuro: Speech: normal speech Extrem: Other: right leg and ankle trace edema. Psych: Mental Status: mental status grossly normal Affect: normal affect Objective Data Vital Signs Vital Signs: Vital Signs - 24 hr 03/03/24 14:00 03/03/24 19:47 03/03/24 20:00 Temperature 97.2 F L 97.7 F Pulse Ra
[2024-03-04 14:00] VITALS: BP 98/59; PULSE 93; RESP 16; TEMP 36.5; O2SAT 97
[2024-03-04] MEDS: ALBUTEROL SULFATE (*SP) AEROSOL 1 PUFF 2 PUFF INHALATION (18:28)
[2024-03-04 18:31] VITALS: PULSE 91; RESP 22
[2024-03-04 20:57] VITALS: BP 100/62; PULSE 98; RESP 16; TEMP 36.1; O2SAT 93
[2024-03-04] MEDS: lisinopriL 20 MG TABLET PO (21:00)
[2024-03-04] MEDS: hydroCHLOROthiazide 12.5 MG CAPSULE PO (21:00)
[2024-03-05] MEDS: CYCLOBENZAPRINE HCL 10 MG TABLET PO ×2 (02:14→19:10)
[2024-03-05] MEDS: oxyCODONE/ACETAMINOPHEN (*CRX) 10-325 MG TABLET 1 TAB PO (05:13)
[2024-03-05 06:00] VITALS: BP 99/72; PULSE 97; RESP 18; TEMP 36.6; O2SAT 100
[2024-03-05 06:04] LABS: Basophils Percent Auto 0.4 % (0.2-1.2); Eosinophils Absolute Auto 0.1 K/mm3 (0-0.3); Eosinophils Percent Auto 1.6 % (0-4.4); Hematocrit 29.2 % (37.0-47.0); Immature Granulocyte Absolute 0.09 K/mm3 (0.00-0.031); Lymphocytes Absolute Auto 1.23 K/mm3 (0.9-3.2); Lymphocytes Percent Auto 13.7 % (18.3-44.2); Mean Corpuscular HGB Conc 34.2 g/dl (32-36); Mean Corpuscular Hemoglobin 37.7 pg (26-34); Mean Corpuscular Volume 110.2 fl (80-100); Mean Platelet Volume 10.9 fl (7.4-10.4); Monocytes Absolute Auto 0.9 K/mm3 (0.1-0.6); Monocytes Percent Auto 10.3 % (2.6-8.5); Neutrophils Absolute Auto 6.5 K/mm3 (1.3-6.7); Platelet Count Result 237 k/mm3 (150-375); Red Blood Count 2.65 M/mm3 (4.2-5.4); Red Cell Distribution Width 16.3 % (11.5-14.5)
[2024-03-05 06:17] LABS: Alanine Aminotransferase 28 U/L (6-35); Albumin Level 2.8 g/dL (3.5-5.1); Alkaline Phosphatase 120 U/L (38-126); Anion Gap 7 mmol/L (4-12); Aspartate Amino Transferase 49 U/L (14-36); Bilirubin,Total 0.7 mg/dL (0.2-1.3); Blood Urea Nitrogen 9 mg/dL (7-17); Calcium 8.3 mg/dL (8.4-10.2); Carbon Dioxide 23 mmol/L (22-30); Chloride 103 mmol/L (98-107); Estimated CRCL calculation 121 ml/min; Estimated Glomerular Filt Rate > 60; Glucose 95 mg/dL (65-110); Potassium 3.8 mmol/L (3.4-5.0); Sodium 133 mmol/L (137-145)
[2024-03-05 07:29] LABS: Anisocytosis 1+; Platelet Estimate Adequate (Adequate); Schistocytes Rare
[2024-03-05] MEDS: NICOTINE (*PBKC) 21 MG PATCH 1 PATCH TRANSDERM (08:48)
[2024-03-05] MEDS: ASPIRIN 325 MG ENTERIC TABLET PO ×2 (08:49→20:45)
[2024-03-05] MEDS: POTASSIUM CHLORIDE 20 MEQ ER TABLET PO ×2 (08:49→16:11)
[2024-03-05] MEDS: IBUPROFEN 600 MG TABLET PO ×2 (08:49→20:53)
[2024-03-05] MEDS: PANTOPRAZOLE 40 MG TABLET PO ×2 (08:49→16:11)
[2024-03-05] MEDS: CALCIUM CARBONATE (TUMS) 500 MG (200 MG ELEMENTAL) PO (12:13)
[2024-03-05 14:00] VITALS: BP 109/69; PULSE 93; RESP 18; TEMP 36.6; O2SAT 96
--- NOTE | 2024-03-05 14:44 | P.PNIM_ITS ---
Progress Note: A&P Assessment and Plan (1) Intertrochanteric fracture of right femur: Code(s): S72.141A - Displaced intertrochanteric fracture of right femur, initial encounter for closed fracture Status: Acute Assessment and Plan: * Patient is postop day 5 from insertion of a trochanteric femoral nail into the right femur with Dr. Jauregui. Gauze covered in transparent dressing intact. * Continue pain control * PT/OT * Continue Flexeril * Voiding well * Regular diet * Will need rehab placement. (2) Frequent falls: Code(s): R29.6 - Repeated falls Status: Acute Assessment and Plan: 02/28/24: * Patient reported a fall 1 week ago injuring her ribs * Reports that her falls are because of past surgery with her left ACL. She states that they removed her ACL?? * PT and OT ordered * see above plan of care 02/29/24: * No change to current treatment plan Continue PT/OT (3) Dizziness: Code(s): R42 - Dizziness and giddiness Status: Acute Assessment and Plan: * Denies dizziness today * hydrate * PT/OT * Up with assistance * Monitor blood pressure (4) Acute hypokalemia: Code(s): E87.6 - Hypokalemia Status: Acute Assessment and Plan: 02/28/24: * Potassium 3.1 * Will give 40 mEq of potassium IV today * Will check magnesium today 02/29/24: * Potassium 3.5 * No change to current treatment plan 03/01/24: * Resolved 03/02/24 : - Potassium 3.8 03/03/24: * Potassium 3.3 * Gave additional Potassium Chloride 20 meq PO x1. 03/04/24: * Potassium 3.6 03/05/24: * Potassium 3.8 * monitor labs (5) Anxiety: Code(s): F41.9 - Anxiety disorder, unspecified Status: Acute Assessment and Plan: 02/28/24: * Patient was given a dose of Atarax and Ativan while in the ED * Patient does not take anything at home for anxiety 02/29/24: * Continue to monitor 03/01/24: * No change to current treatment plan (6) Hypertension: Code(s): I10 - Essential (primary) hypertension Status: Acute Assessment and Plan: * Blood pressure 99/72 * monitor blood pressures (7) Asthma: Code(s): J45.909 - Unspecified asthma, uncomplicated Status: Acute Assessment and Plan: 02/28/24: * Continue albuterol rescue inhaler 02/29/24: * No change to current treatment plan (8) Alcohol abuse: Code(s): F10.10 - Alcohol abuse, uncomplicated Status: Acute Assessment and Plan: 02/28/24: * Will check alcohol level- 12 * Patient was drinking alcohol yesterday prior to her fall. 02/29/24: * No change to current treatment plan (9) Tobacco abuse: Code(s): Z72.0 - Tobacco use Status: Acute Assessment and Plan: 02/28/24: * Nicotine patch ordered 02/29/24: * No change to current treatment plan Subjective Date/time seen: 03/05/24 14:44 Interval history: Denies pain. Reports having a bowel movement this morning. Denies chest pain, palpitations, shortness of breath, nausea, vomiting, headache, or dizziness. Patient reports that she is improving with physical therapy. Patient is concerned about not being able to bend her right knee much. Patient sitting in bed with ice on right knee and thigh. Review of Systems Review of Systems: All systems reviewed & are unremarkable except as noted in HPI and below Exam
--- NOTE | 2024-03-05 14:44 | PM.IMPN ---
Progress Note: A&P Assessment and Plan (1) Intertrochanteric fracture of right femur: Code(s): S72.141A - Displaced intertrochanteric fracture of right femur, initial encounter for closed fracture Status: Acute Assessment and Plan: Patient is postop day 5 from insertion of a trochanteric femoral nail into the right femur with Dr. Jauregui. Gauze covered in transparent dressing intact. Continue pain control PT/OT Continue Flexeril Voiding well Regular diet Will need rehab placement. (2) Frequent falls: Code(s): R29.6 - Repeated falls Status: Acute Assessment and Plan: 02/28/24: Patient reported a fall 1 week ago injuring her ribs Reports that her falls are because of past surgery with her left ACL. She states that they removed her ACL?? PT and OT ordered see above plan of care 02/29/24: No change to current treatment plan Continue PT/OT (3) Dizziness: Code(s): R42 - Dizziness and giddiness Status: Acute Assessment and Plan: Denies dizziness today hydrate PT/OT Up with assistance Monitor blood pressure (4) Acute hypokalemia: Code(s): E87.6 - Hypokalemia Status: Acute Assessment and Plan: 02/28/24: Potassium 3.1 Will give 40 mEq of potassium IV today Will check magnesium today 02/29/24: Potassium 3.5 No change to current treatment plan 03/01/24: Resolved 03/02/24 : - Potassium 3.8 03/03/24: Potassium 3.3 Gave additional Potassium Chloride 20 meq PO x1. 03/04/24: Potassium 3.6 03/05/24: Potassium 3.8 monitor labs (5) Anxiety: Code(s): F41.9 - Anxiety disorder, unspecified Status: Acute Assessment and Plan: 02/28/24: Patient was given a dose of Atarax and Ativan while in the ED Patient does not take anything at home for anxiety 02/29/24: Continue to monitor 03/01/24: No change to current treatment plan (6) Hypertension: Code(s): I10 - Essential (primary) hypertension Status: Acute Assessment and Plan: Blood pressure 99/72 monitor blood pressures (7) Asthma: Code(s): J45.909 - Unspecified asthma, uncomplicated Status: Acute Assessment and Plan: 02/28/24: Continue albuterol rescue inhaler 02/29/24: No change to current treatment plan (8) Alcohol abuse: Code(s): F10.10 - Alcohol abuse, uncomplicated Status: Acute Assessment and Plan: 02/28/24: Will check alcohol level- 12 Patient was drinking alcohol yesterday prior to her fall. 02/29/24: No change to current treatment plan (9) Tobacco abuse: Code(s): Z72.0 - Tobacco use Status: Acute Assessment and Plan: 02/28/24: Nicotine patch ordered 02/29/24: No change to current treatment plan Subjective Date/time seen: 03/05/24 14:44 Interval history: Denies pain. Reports having a bowel movement this morning. Denies chest pain, palpitations, shortness of breath, nausea, vomiting, headache, or dizziness. Patient reports that she is improving with physical therapy. Patient is concerned about not being able to bend her right knee much. Patient sitting in bed with ice on right knee and thigh. Review of Systems Review of Systems: All systems reviewed & are unremarkable except as noted in HPI and below Exam Const: General: comfortable and no acute distress Eyes: Sclera: sclerae normal Resp: Effort & Inspection: normal respiratory effort Other: slightly diminished in the bases. Cardio: Rate: regular rate Rhythm: regular rhythm GI: GI Palp: Yes Soft to palpation Auscultation: normal bowel sounds : Other: voiding without difficulty Skin: Other: surgical incision right hip and side of right knee with gauze and transparent dressing. Serous drainage to right hip dressing. Mild swelling. Neuro: Speech: normal speech Extrem: Other: right leg and ankle trace edema. Psych: Ment
[2024-03-05] MEDS: oxyCODONE/ACETAMINOPHEN (*CRX) 5-325 MG TABLET 1 TABLET PO (14:49)
[2024-03-05 20:00] VITALS: PULSE 107; RESP 18; O2SAT 95
[2024-03-05] MEDS: hydroCHLOROthiazide 12.5 MG CAPSULE PO (20:45)
[2024-03-05] MEDS: lisinopriL 20 MG TABLET PO (20:45)
[2024-03-05 21:40] VITALS: BP 96/69; PULSE 107; RESP 18; TEMP 36.6; O2SAT 95
[2024-03-05] MEDS: ALBUTEROL SULFATE (*SP) AEROSOL 1 PUFF 2 PUFF INHALATION (23:23)
[2024-03-05 23:24] VITALS: PULSE 99; RESP 21
[2024-03-05 23:27] VITALS: O2SAT 95
--- NOTE | 2024-03-06 03:02 | ECG_ITS ---
Test Date: 2024-03-06 03:29:51 Measurements Intervals [place] Rate: 92 P: 47 GA: 172 QRS: 14 QRSD: 78 T: 19 QT: 352 QTc: 437 Interpretive Statements SINUS RHYTHM DELAYED PRECORDIAL R/S TRANSITION BASELINE ARTIFACT- I, II, III, AVR, AVL, AVF, V4-V6 BORDERLINE ECG Compared to ECG 02/29/2024 13:23:52 HEART RATE HAS DECREASED Electronically Signed On 03-06-2024 09:20:11 CDT by Efe Miguel D.O.
[2024-03-06] MEDS: oxyCODONE/ACETAMINOPHEN (*CRX) 5-325 MG TABLET 1 TABLET PO ×2 (03:56→18:17)
[2024-03-06] MEDS: CYCLOBENZAPRINE HCL 10 MG TABLET PO ×2 (03:56→18:23)
[2024-03-06 05:11] VITALS: BP 98/62; PULSE 94; RESP 18; TEMP 36.2; O2SAT 94
[2024-03-06 06:30] LABS: Basophils Percent Auto 0.4 % (0.2-1.2); Eosinophils Absolute Auto 0.1 K/mm3 (0-0.3); Eosinophils Percent Auto 1.3 % (0-4.4); Hematocrit 29.7 % (37.0-47.0); Hemoglobin 9.7 g/dL (12.0-15.0); Immature Granulocyte Absolute 0.08 K/mm3 (0.00-0.031); Lymphocytes Absolute Auto 1.11 K/mm3 (0.9-3.2); Lymphocytes Percent Auto 14.5 % (18.3-44.2); Mean Corpuscular HGB Conc 32.7 g/dl (32-36); Mean Corpuscular Hemoglobin 35.9 pg (26-34); Mean Platelet Volume 10.4 fl (7.4-10.4); Monocytes Absolute Auto 0.8 K/mm3 (0.1-0.6); Monocytes Percent Auto 10.5 % (2.6-8.5); Neutrophils Absolute Auto 5.5 K/mm3 (1.3-6.7); Neutrophils Percent Auto 72.3 % (45.5-73.1); Platelet Count Result 284 k/mm3 (150-375); Red Cell Distribution Width 16.3 % (11.5-14.5); White Blood Count 7.6 K/mm3 (4.5-10.0)
[2024-03-06 06:45] LABS: Alanine Aminotransferase 22 U/L (6-35); Albumin Level 2.8 g/dL (3.5-5.1); Alkaline Phosphatase 118 U/L (38-126); Anion Gap 5 mmol/L (4-12); Aspartate Amino Transferase 37 U/L (14-36); Bilirubin,Total 0.5 mg/dL (0.2-1.3); Blood Urea Nitrogen 9 mg/dL (7-17); Calcium 8.4 mg/dL (8.4-10.2); Carbon Dioxide 24 mmol/L (22-30); Chloride 106 mmol/L (98-107); Estimated CRCL calculation 121 ml/min; Estimated Glomerular Filt Rate > 60; Glucose 97 mg/dL (65-110); Potassium 3.6 mmol/L (3.4-5.0); Sodium 135 mmol/L (137-145)
[2024-03-06 07:06] LABS: Hypochromasia 1+; Macrocytosis 1+ (NORMAL); Platelet Estimate Adequate (Adequate); Schistocytes None Seen
--- NOTE | 2024-03-06 09:13 | PM.PNORT ---
Progress Note: A&P Assessment and Plan (1) Closed fracture of right hip: Qualifiers: Encounter type: subsequent encounter Fracture healing: with routine healing Qualified Code(s): S72.001D - Fracture of unspecified part of neck of right femur, subsequent encounter for closed fracture with routine healing Code(s): S72.001A - Fracture of unspecified part of neck of right femur, initial encounter for closed fracture Status: Acute Assessment and Plan: POD #6: Right IT femur fx. PT/OT. WBAT. Walker. HIGH FALL RISK. Continue pain control. Ice Hip. Protect skin. DVT prophylaxis with Aspirin. SCDs. Incentive Spirometry Use reviewed. Incision drainage: mid thigh incision with serous drainage. Switched to gauze and ABD. Monitor Dressing. apply ABD for drainage PRN. using Ensure for low protein and albumin. Aspirin for DVT. Renal function normal. Will monitor drainage today. May consider diuretic. Bowel Regimen. Dispo: Hold for right thigh drainage. Unable to ambulate independently at this time. Subjective Subjective Date/Time Seen: 03/06/24 09:13 Post Op day: 6 Principal diagnosis: right proximal femur fracture Interval history: POD #6: Right IT femur fx with right IT femoral nail. Patient C/o right knee pain. left knee pain with ambulation. Right leg swelling. PT/OT. Tolerating PO intake well. Notified of drainage from the right thigh. Exam Const: General: comfortable and no acute distress Skin: General skin exam: normal color Other: Incision right hip Clean and dry. incision right proximal thigh lateral with serous drainage on the dressing. Surrounding tissue without redness/warmth. Mild swelling. Distal incision No drainage. Neuro: Cognition (Neuro): normal cognition Speech: normal speech Extrem: Right lower extremity: normal to inspection, normal capillary refill, hip/thigh Details: tenderness Location: of the hip (Thigh soft ) Location: laterally and anteriorly, swelling Location: at the hip, abnormal ROM (limited consistent with recent surgery ) Details: pain with active ROM during and pain with passive ROM during and other (Incision c/d/i. ); no deformity and no unusual warmth, knee Details: normal to inspection; no tenderness and no swelling, lower leg (Negative Haritha's Sign ) Details: normal to inspection and no edema; no tenderness, ankle (+ankle dorsiflexion/plantarflexion) Details: normal to inspection and no edema; no tenderness, no swelling and no ecchymosis and foot Details: normal capillary refill, toes with normal ROM, vascular exam Details: dorsalis pedis pulse present and motor-sensory exam Details: light-touch normal; no tenderness Objective Data Vital Signs Vital Signs: Vital Signs - 24 hr 03/05/24 14:00 03/05/24 21:40 03/05/24 20:00 Temperature 97.8 F 97.9 F Pulse Rate 93 107 H 107 H Respiratory Rate 18 18 18 Blood Pressure 109/69 96/69 L Pulse Oximetry 96 95 95 Oxygen Delivery Room Air Fraction of Inspired Oxygen 21 03/05/24 23:24 03/05/24 23:27 03/06/24 05:11 Temperature 97.2 F L Pulse Rate 99 94 Respiratory Rate 21 H 18 Blood Pressure 98/62 L Pulse Oximetry 95 94 Oxygen Delivery Room Air Fraction of Inspired Oxygen Intake/Output Intake/Output: Intake & Output 03/03/24 03/04/24 03/05/24 03/06/24 23:59 23:59 23:59 23:59 Intake Total 2210 950 1360 300 Output Total 400 Balance 2259 891 1065 300 Meds/Results Medications: Active Medications Generic Name Dose Route Start Last Admin Trade Name Freq PRN Reason Stop Dose Admin Acetaminophen 500 mg 02/29/24 20:14 Acetaminophen 500 Mg Tablet PO Q6H PRN Pain Rated 1-3 Albuterol 2 puff 02/28/24 07:21 03/05/24 23:23 Albuterol Sulfate (*Sp) Aerosol 1 Puff INHALATION 2 puff QID PRN Administration Shortness Of Breath Or Wheezing Aspirin 325 mg 02/29/24 21:00 03/05/24 20:45 Aspirin 325 Mg Enteric Tablet PO
[2024-03-06] MEDS: NICOTINE (*PBKC) 21 MG PATCH 1 PATCH TRANSDERM (09:15)
[2024-03-06] MEDS: PANTOPRAZOLE 40 MG TABLET PO ×2 (09:16→18:23)
[2024-03-06] MEDS: ASPIRIN 325 MG ENTERIC TABLET PO ×2 (09:16→21:44)
[2024-03-06] MEDS: oxyCODONE/ACETAMINOPHEN (*CRX) 10-325 MG TABLET 1 TAB PO (09:16)
[2024-03-06] MEDS: POTASSIUM CHLORIDE 20 MEQ ER TABLET PO ×2 (09:17→18:23)
--- NOTE | 2024-03-06 13:34 | P.PNIM_ITS ---
Progress Note: A&P Assessment and Plan (1) Intertrochanteric fracture of right femur: Code(s): S72.141A - Displaced intertrochanteric fracture of right femur, initial encounter for closed fracture Status: Acute Assessment and Plan: * Patient is postop day 6 from insertion of a trochanteric femoral nail into the right femur with Dr. Jauregui. Gauze covered in abd dressing intact. Orthopedic following. * Continue pain control * PT/OT * Continue Flexeril * Voiding well * Regular diet * Will need rehab placement. (2) Frequent falls: Code(s): R29.6 - Repeated falls Status: Acute Assessment and Plan: 02/28/24: * Patient reported a fall 1 week ago injuring her ribs * Reports that her falls are because of past surgery with her left ACL. She states that they removed her ACL?? * PT and OT ordered * see above plan of care 02/29/24: * No change to current treatment plan Continue PT/OT (3) Dizziness: Code(s): R42 - Dizziness and giddiness Status: Acute Assessment and Plan: * Denies dizziness today * hydrate * PT/OT * Up with assistance * Monitor blood pressure (4) Acute hypokalemia: Code(s): E87.6 - Hypokalemia Status: Acute Assessment and Plan: 02/28/24: * Potassium 3.1 * Will give 40 mEq of potassium IV today * Will check magnesium today 02/29/24: * Potassium 3.5 * No change to current treatment plan 03/01/24: * Resolved 03/02/24 : - Potassium 3.8 03/03/24: * Potassium 3.3 * Gave additional Potassium Chloride 20 meq PO x1. 03/04/24: * Potassium 3.6 03/05/24: * Potassium 3.8 03/06/24: * Potassium 3.6 * Monitor labs. (5) Anxiety: Code(s): F41.9 - Anxiety disorder, unspecified Status: Acute Assessment and Plan: 02/28/24: * Patient was given a dose of Atarax and Ativan while in the ED * Patient does not take anything at home for anxiety 02/29/24: * Continue to monitor 03/01/24: * No change to current treatment plan (6) Hypertension: Code(s): I10 - Essential (primary) hypertension Status: Acute Assessment and Plan: * Blood pressure 98/62 * monitor blood pressures (7) Asthma: Code(s): J45.909 - Unspecified asthma, uncomplicated Status: Acute Assessment and Plan: 02/28/24: * Continue albuterol rescue inhaler 02/29/24: * No change to current treatment plan (8) Alcohol abuse: Code(s): F10.10 - Alcohol abuse, uncomplicated Status: Acute Assessment and Plan: 02/28/24: * Will check alcohol level- 12 * Patient was drinking alcohol yesterday prior to her fall. 02/29/24: * No change to current treatment plan (9) Tobacco abuse: Code(s): Z72.0 - Tobacco use Status: Acute Assessment and Plan: 02/28/24: * Nicotine patch ordered 02/29/24: * No change to current treatment plan Subjective Date/time seen: 03/06/24 13:34 Interval history: Denies pain. Reports having a bowel movement this morning. Denies chest pain, palpitations, shortness of breath, nausea, vomiting, headache, or dizziness. Patient reports that she is improving with physical therapy. Patient is concerned about not being able to bend her right knee much. Patient sitting in bed. Patient reports that dressing was changed this morning to her right thigh due to drainage. Review of Systems Review of Systems:
--- NOTE | 2024-03-06 13:34 | PM.IMPN ---
Progress Note: A&P Assessment and Plan (1) Intertrochanteric fracture of right femur: Code(s): S72.141A - Displaced intertrochanteric fracture of right femur, initial encounter for closed fracture Status: Acute Assessment and Plan: Patient is postop day 6 from insertion of a trochanteric femoral nail into the right femur with Dr. Jauregui. Gauze covered in abd dressing intact. Orthopedic following. Continue pain control PT/OT Continue Flexeril Voiding well Regular diet Will need rehab placement. (2) Frequent falls: Code(s): R29.6 - Repeated falls Status: Acute Assessment and Plan: 02/28/24: Patient reported a fall 1 week ago injuring her ribs Reports that her falls are because of past surgery with her left ACL. She states that they removed her ACL?? PT and OT ordered see above plan of care 02/29/24: No change to current treatment plan Continue PT/OT (3) Dizziness: Code(s): R42 - Dizziness and giddiness Status: Acute Assessment and Plan: Denies dizziness today hydrate PT/OT Up with assistance Monitor blood pressure (4) Acute hypokalemia: Code(s): E87.6 - Hypokalemia Status: Acute Assessment and Plan: 02/28/24: Potassium 3.1 Will give 40 mEq of potassium IV today Will check magnesium today 02/29/24: Potassium 3.5 No change to current treatment plan 03/01/24: Resolved 03/02/24 : - Potassium 3.8 03/03/24: Potassium 3.3 Gave additional Potassium Chloride 20 meq PO x1. 03/04/24: Potassium 3.6 03/05/24: Potassium 3.8 03/06/24: Potassium 3.6 Monitor labs. (5) Anxiety: Code(s): F41.9 - Anxiety disorder, unspecified Status: Acute Assessment and Plan: 02/28/24: Patient was given a dose of Atarax and Ativan while in the ED Patient does not take anything at home for anxiety 02/29/24: Continue to monitor 03/01/24: No change to current treatment plan (6) Hypertension: Code(s): I10 - Essential (primary) hypertension Status: Acute Assessment and Plan: Blood pressure 98/62 monitor blood pressures (7) Asthma: Code(s): J45.909 - Unspecified asthma, uncomplicated Status: Acute Assessment and Plan: 02/28/24: Continue albuterol rescue inhaler 02/29/24: No change to current treatment plan (8) Alcohol abuse: Code(s): F10.10 - Alcohol abuse, uncomplicated Status: Acute Assessment and Plan: 02/28/24: Will check alcohol level- 12 Patient was drinking alcohol yesterday prior to her fall. 02/29/24: No change to current treatment plan (9) Tobacco abuse: Code(s): Z72.0 - Tobacco use Status: Acute Assessment and Plan: 02/28/24: Nicotine patch ordered 02/29/24: No change to current treatment plan Subjective Date/time seen: 03/06/24 13:34 Interval history: Denies pain. Reports having a bowel movement this morning. Denies chest pain, palpitations, shortness of breath, nausea, vomiting, headache, or dizziness. Patient reports that she is improving with physical therapy. Patient is concerned about not being able to bend her right knee much. Patient sitting in bed. Patient reports that dressing was changed this morning to her right thigh due to drainage. Review of Systems Review of Systems: All systems reviewed & are unremarkable except as noted in HPI and below Exam Const: General: comfortable and no acute distress Eyes: Sclera: sclerae normal Resp: Auscultation: clear to auscultation bilaterally Cardio: Rate: regular rate Rhythm: regular rhythm GI: GI Palp: Yes Soft to palpation Auscultation: normal bowel sounds : Other: Voiding without difficulty. Skin: Other: Surgical incision right hip and side of right knee with gauze and ABD dressing. Scant serous drainage to right hip dressing. Mild swelling. Distal incision, no drainage. Neuro: Speech: n
[2024-03-06 14:00] VITALS: BP 102/65; PULSE 98; RESP 20; TEMP 36.8; O2SAT 100
--- NOTE | 2024-03-06 18:58 | PC.NURSE ---
Pt states she received a call from Brittany from [facility] who told her she was going to be coming to her home for home visits three times a week. Pt was distressed that she is still not able to get around safely by herself & has no one home to help her while her is gone to work every day. She is currently using one assist with suzanna racquel to go to the bathroom & ambulates only with PT in the room. She is experiencing a lot of pain when moving her right leg. She does not have full strength of the left leg d/t previous injury & is missing parts of her knee, which causes that knee to buckle when standing, leaving her to place her weight on the surgical leg, which is also very weak. She is unable to get in or out of the bed independently, nor is she able to ambulate without supervision.
[2024-03-06 21:40] VITALS: BP 116/71; PULSE 81; RESP 18; TEMP 36.6; O2SAT 94
[2024-03-06] MEDS: ALBUTEROL SULFATE (*SP) AEROSOL 1 PUFF 2 PUFF INHALATION (21:44)
[2024-03-06] MEDS: IBUPROFEN 600 MG TABLET PO (21:44)
[2024-03-06] MEDS: hydroCHLOROthiazide 12.5 MG CAPSULE PO (21:44)
[2024-03-06] MEDS: lisinopriL 20 MG TABLET PO (21:44)
[2024-03-06 21:45] VITALS: PULSE 93; RESP 20
[2024-03-07] MEDS: diazePAM (*CRX) 5 MG TABLET PO (02:04)
[2024-03-07 05:47] LABS: Basophils Absolute Auto 0.1 K/mm3 (0.0-0.1); Basophils Percent Auto 0.7 % (0.2-1.2); Eosinophils Absolute Auto 0.1 K/mm3 (0-0.3); Hematocrit 29.7 % (37.0-47.0); Hemoglobin 9.6 g/dL (12.0-15.0); Immature Granulocyte Absolute 0.04 K/mm3 (0.00-0.031); Immature Granulocyte Percent A 0.6 % (0-0.5); Lymphocytes Percent Auto 21.5 % (18.3-44.2); Mean Corpuscular HGB Conc 32.3 g/dl (32-36); Mean Corpuscular Hemoglobin 36.1 pg (26-34); Mean Corpuscular Volume 111.7 fl (80-100); Mean Platelet Volume 10.4 fl (7.4-10.4); Monocytes Absolute Auto 1.1 K/mm3 (0.1-0.6); Monocytes Percent Auto 15.2 % (2.6-8.5); Neutrophils Absolute Auto 4.2 K/mm3 (1.3-6.7); Platelet Count Result 340 k/mm3 (150-375); Red Blood Count 2.66 M/mm3 (4.2-5.4); Red Cell Distribution Width 16.3 % (11.5-14.5)
[2024-03-07 05:56] LABS: Alanine Aminotransferase 19 U/L (6-35); Albumin Level 2.7 g/dL (3.5-5.1); Alkaline Phosphatase 120 U/L (38-126); Anion Gap 5 mmol/L (4-12); Aspartate Amino Transferase 29 U/L (14-36); Bilirubin,Total 0.3 mg/dL (0.2-1.3); Blood Urea Nitrogen 10 mg/dL (7-17); Calcium 8.7 mg/dL (8.4-10.2); Carbon Dioxide 24 mmol/L (22-30); Chloride 105 mmol/L (98-107); Estimated CRCL calculation 103 ml/min; Estimated Glomerular Filt Rate > 60; Glucose 93 mg/dL (65-110); Sodium 134 mmol/L (137-145)
[2024-03-07 06:00] VITALS: BP 134/90; PULSE 93; RESP 18; TEMP 36.2; O2SAT 99
[2024-03-07 06:11] LABS: Platelet Estimate Adequate (Adequate)
[2024-03-07 06:12] LABS: Anisocytosis 1+; Macrocytosis 2+ (NORMAL)
[2024-03-07 06:13] LABS: Hypochromasia 1+; Schistocytes None Seen
[2024-03-07] MEDS: CYCLOBENZAPRINE HCL 10 MG TABLET PO ×2 (07:01→22:28)
[2024-03-07] MEDS: ASPIRIN 325 MG ENTERIC TABLET PO ×2 (08:07→21:10)
[2024-03-07] MEDS: SENNA/DOCUSATE SODIUM TABLET 2 TAB PO (08:07)
[2024-03-07] MEDS: POTASSIUM CHLORIDE 20 MEQ ER TABLET PO ×2 (08:07→17:37)
[2024-03-07] MEDS: NICOTINE (*PBKC) 21 MG PATCH 1 PATCH TRANSDERM (08:07)
[2024-03-07] MEDS: PANTOPRAZOLE 40 MG TABLET PO ×2 (08:08→17:36)
--- NOTE | 2024-03-07 09:32 | PCNWS ---
Weekly nutritional screen. Patient is tolerating current Regular diet with adequate intake, 50-100%. No weight loss reported. No nutritional needs at this time.
[2024-03-07] MEDS: IBUPROFEN 600 MG TABLET PO (10:17)
--- NOTE | 2024-03-07 11:49 | P.PNIM_ITS ---
Progress Note: A&P Assessment and Plan (1) Intertrochanteric fracture of right femur: Code(s): S72.141A - Displaced intertrochanteric fracture of right femur, initial encounter for closed fracture Status: Acute Assessment and Plan: * Patient is postop day7 from insertion of a trochanteric femoral nail into the right femur with Dr. Jauregui. Gauze covered in abd dressing intact. Orthopedic following. * Continue pain control * PT/OT * Continue Flexeril * Voiding well * Regular diet * Will need rehab placement. (2) Frequent falls: Code(s): R29.6 - Repeated falls Status: Acute Assessment and Plan: 02/28/24: * Patient reported a fall 1 week ago injuring her ribs * Reports that her falls are because of past surgery with her left ACL. She states that they removed her ACL?? * PT and OT ordered * see above plan of care 02/29/24: * No change to current treatment plan Continue PT/OT (3) Dizziness: Code(s): R42 - Dizziness and giddiness Status: Acute Assessment and Plan: * Denies dizziness today * hydrate * PT/OT * Up with assistance * Monitor blood pressure (4) Acute hypokalemia: Code(s): E87.6 - Hypokalemia Status: Acute Assessment and Plan: 02/28/24: * Potassium 3.1 * Will give 40 mEq of potassium IV today * Will check magnesium today 02/29/24: * Potassium 3.5 * No change to current treatment plan 03/01/24: * Resolved 03/02/24 : - Potassium 3.8 03/03/24: * Potassium 3.3 * Gave additional Potassium Chloride 20 meq PO x1. 03/04/24: * Potassium 3.6 03/05/24: * Potassium 3.8 03/06/24: * Potassium 3.6 03/07/24: * Potassium 4.0 * monitor labs (5) Anxiety: Code(s): F41.9 - Anxiety disorder, unspecified Status: Acute Assessment and Plan: 02/28/24: * Patient was given a dose of Atarax and Ativan while in the ED * Patient does not take anything at home for anxiety 02/29/24: * Continue to monitor 03/01/24: * No change to current treatment plan (6) Hypertension: Code(s): I10 - Essential (primary) hypertension Status: Acute Assessment and Plan: * Blood pressure 134/90 * Continue medications. * monitor blood pressures (7) Asthma: Code(s): J45.909 - Unspecified asthma, uncomplicated Status: Acute Assessment and Plan: 02/28/24: * Continue albuterol rescue inhaler 02/29/24: * No change to current treatment plan (8) Alcohol abuse: Code(s): F10.10 - Alcohol abuse, uncomplicated Status: Acute Assessment and Plan: 02/28/24: * Will check alcohol level- 12 * Patient was drinking alcohol yesterday prior to her fall. 02/29/24: * No change to current treatment plan (9) Tobacco abuse: Code(s): Z72.0 - Tobacco use Status: Acute Assessment and Plan: 02/28/24: * Nicotine patch ordered 02/29/24: * No change to current treatment plan Subjective Date/time seen: 03/07/24 11:49 Interval history: Patient reports pain was a 9 , frequent, and aching before receiving Ibuprofen and placing ice to right hip and right knee. Patient reports noticing a little swelling along with bruising to her right hip today. Reports having a bowel movement this morning. Denies chest pain, palpitations, shortness of breath, nausea, vomiting, headache, or dizziness. Patient reports that she is improving with physic
--- NOTE | 2024-03-07 11:49 | PM.IMPN ---
Progress Note: A&P Assessment and Plan (1) Intertrochanteric fracture of right femur: Code(s): S72.141A - Displaced intertrochanteric fracture of right femur, initial encounter for closed fracture Status: Acute Assessment and Plan: Patient is postop day7 from insertion of a trochanteric femoral nail into the right femur with Dr. Jauregui. Gauze covered in abd dressing intact. Orthopedic following. Continue pain control PT/OT Continue Flexeril Voiding well Regular diet Will need rehab placement. (2) Frequent falls: Code(s): R29.6 - Repeated falls Status: Acute Assessment and Plan: 02/28/24: Patient reported a fall 1 week ago injuring her ribs Reports that her falls are because of past surgery with her left ACL. She states that they removed her ACL?? PT and OT ordered see above plan of care 02/29/24: No change to current treatment plan Continue PT/OT (3) Dizziness: Code(s): R42 - Dizziness and giddiness Status: Acute Assessment and Plan: Denies dizziness today hydrate PT/OT Up with assistance Monitor blood pressure (4) Acute hypokalemia: Code(s): E87.6 - Hypokalemia Status: Acute Assessment and Plan: 02/28/24: Potassium 3.1 Will give 40 mEq of potassium IV today Will check magnesium today 02/29/24: Potassium 3.5 No change to current treatment plan 03/01/24: Resolved 03/02/24 : - Potassium 3.8 03/03/24: Potassium 3.3 Gave additional Potassium Chloride 20 meq PO x1. 03/04/24: Potassium 3.6 03/05/24: Potassium 3.8 03/06/24: Potassium 3.6 03/07/24: Potassium 4.0 monitor labs (5) Anxiety: Code(s): F41.9 - Anxiety disorder, unspecified Status: Acute Assessment and Plan: 02/28/24: Patient was given a dose of Atarax and Ativan while in the ED Patient does not take anything at home for anxiety 02/29/24: Continue to monitor 03/01/24: No change to current treatment plan (6) Hypertension: Code(s): I10 - Essential (primary) hypertension Status: Acute Assessment and Plan: Blood pressure 134/90 Continue medications. monitor blood pressures (7) Asthma: Code(s): J45.909 - Unspecified asthma, uncomplicated Status: Acute Assessment and Plan: 02/28/24: Continue albuterol rescue inhaler 02/29/24: No change to current treatment plan (8) Alcohol abuse: Code(s): F10.10 - Alcohol abuse, uncomplicated Status: Acute Assessment and Plan: 02/28/24: Will check alcohol level- 12 Patient was drinking alcohol yesterday prior to her fall. 02/29/24: No change to current treatment plan (9) Tobacco abuse: Code(s): Z72.0 - Tobacco use Status: Acute Assessment and Plan: 02/28/24: Nicotine patch ordered 02/29/24: No change to current treatment plan Subjective Date/time seen: 03/07/24 11:49 Interval history: Patient reports pain was a 9 , frequent, and aching before receiving Ibuprofen and placing ice to right hip and right knee. Patient reports noticing a little swelling along with bruising to her right hip today. Reports having a bowel movement this morning. Denies chest pain, palpitations, shortness of breath, nausea, vomiting, headache, or dizziness. Patient reports that she is improving with physical therapy. Patient is concerned about not being able to bend her right knee much. Patient lying in bed. Review of Systems Review of Systems: All systems reviewed & are unremarkable except as noted in HPI and below Exam Const: General: comfortable and no acute distress Eyes: Sclera: sclerae normal Resp: Effort & Inspection: normal respiratory effort Auscultation: clear to auscultation bilaterally Cardio: Rate: regular rate Rhythm: regular rhythm GI: GI Palp: Yes Soft to palpation Auscultation: normal bowel sounds Skin: Other: Ecchymosis to back of right hip. Extr
--- NOTE | 2024-03-07 13:10 | PM.PNORT ---
Progress Note: A&P Assessment and Plan (1) Closed fracture of right hip: Qualifiers: Encounter type: subsequent encounter Fracture healing: with routine healing Qualified Code(s): S72.001D - Fracture of unspecified part of neck of right femur, subsequent encounter for closed fracture with routine healing Code(s): S72.001A - Fracture of unspecified part of neck of right femur, initial encounter for closed fracture Status: Acute Assessment and Plan: POD #7: Right IT femur fx with femoral neck fx extension resulting in right IT femoral nail with long stem. PT/OT. WBAT. Walker. HIGH FALL RISK. Continue pain control. Ice Hip. Protect skin. DVT prophylaxis with Aspirin. SCDs. Incentive Spirometry Use reviewed. Monitor Dressing. Improved drainage. Still with swelling RLE. Bowel Regimen. Dispo: Home with Home Health pending progress with PT/OT Plan Reviewed history, exam, radiographs and current labs with attending MD and covering surgeon, Dr. Jauregui, who agrees with current plan as indicated above. No further recommendations from Dr. Jauregui at this time. Subjective Subjective Date/Time Seen: 03/07/24 13:10 Post Op day: 7 Principal diagnosis: right proximal femur fracture Interval history: POD #7: Right IT femur fx with right IT femoral nail. Patient C/o right knee pain. left knee pain with ambulation. Right leg swelling. PT/OT. Tolerating PO intake well. Right thigh drainage improved. Review of Systems Review of Systems: All systems reviewed & are unremarkable except as noted in HPI and below Exam Const: General: comfortable and no acute distress Eyes: Sclera: sclerae normal Resp: Effort & Inspection: normal respiratory effort Auscultation: clear to auscultation bilaterally Cardio: Rate: regular rate Rhythm: regular rhythm GI: GI Palp: Yes Soft to palpation Auscultation: normal bowel sounds Skin: Other: Ecchymosis to back of right hip. Extrem: Other: Surgical incision right hip and side of right knee with gauze and transparent scant serous drainage to right hip dressing. Mild swelling. Distal incision, no drainage. Ecchymosis noted to the back of right hip. Psych: Affect: normal affect Objective Data Vital Signs Vital Signs: Vital Signs - 24 hr 03/06/24 14:00 03/06/24 21:40 03/06/24 21:45 Temperature 36.8 C 36.6 C Pulse Rate 98 81 93 Respiratory Rate 20 18 20 Blood Pressure 102/65 116/71 Pulse Oximetry 100 94 Oxygen Delivery 03/06/24 20:00 03/07/24 06:00 03/07/24 08:07 Temperature 36.2 C L Pulse Rate 93 Respiratory Rate 18 Blood Pressure 134/90 Pulse Oximetry 99 Oxygen Delivery Room Air Room Air Intake/Output Intake/Output: Intake & Output 03/04/24 03/05/24 03/06/24 03/07/24 23:59 23:59 23:59 23:59 Intake Total 950 1360 420 760 Balance 950 1360 420 760 Meds/Results Medications: Active Medications Generic Name Dose Route Start Last Admin Trade Name Freq PRN Reason Stop Dose Admin Acetaminophen 500 mg 02/29/24 20:14 Acetaminophen 500 Mg Tablet PO Q6H PRN Pain Rated 1-3 Albuterol 2 puff 02/28/24 07:21 03/06/24 21:44 Albuterol Sulfate (*Sp) Aerosol 1 Puff INHALATION 2 puff QID PRN Administration Shortness Of Breath Or Wheezing Aspirin 325 mg 02/29/24 21:00 03/07/24 08:07 Aspirin 325 Mg Enteric Tablet PO 325 mg Q12HR DEIDRA Administration Calcium Carbonate 200 mg 03/03/24 05:19 03/05/24 12:13 Calcium Carbonate (Tums) 500 Mg (200 Mg Elemental) PO 200 mg Q6H PRN Administration Indigestion Cyclobenzaprine HCl 10 mg 02/28/24 09:52 03/07/24 07:01 Cyclobenzaprine Hcl 10 Mg Tablet PO 10 mg Q8H PRN Administration Muscle Spasm Diazepam 5 mg 02/29/24 20:14 03/07/24 02:04 Diazepam (*Crx) 5 Mg Tablet PO 5 mg Q8H PRN Administration Muscle Spasm Hydrochlorothiazide 12.5 mg 02/29/24 21:00 03/06/24 21:44 Hydrochloro
[2024-03-07 14:18] VITALS: BP 108/72; PULSE 89; RESP 16; TEMP 35.7; O2SAT 99
[2024-03-07] MEDS: oxyCODONE/ACETAMINOPHEN (*CRX) 10-325 MG TABLET 1 TAB PO (19:24)
[2024-03-07] MEDS: ALBUTEROL SULFATE (*SP) AEROSOL 1 PUFF 2 PUFF INHALATION (20:08)
[2024-03-07 20:22] VITALS: BP 127/84; PULSE 100; RESP 20; TEMP 36.6; O2SAT 97
[2024-03-07] MEDS: lisinopriL 20 MG TABLET PO (21:10)
[2024-03-07] MEDS: hydroCHLOROthiazide 12.5 MG CAPSULE PO (21:10)
[2024-03-08 05:00] VITALS: BP 100/53; PULSE 86; RESP 18; TEMP 36.1; O2SAT 97
[2024-03-08] MEDS: IBUPROFEN 600 MG TABLET PO ×2 (05:05→14:20)
[2024-03-08] MEDS: ALBUTEROL SULFATE (*SP) AEROSOL 1 PUFF 2 PUFF INHALATION (05:30)
[2024-03-08 06:28] LABS: Basophils Percent Auto 0.6 % (0.2-1.2); Eosinophils Absolute Auto 0.2 K/mm3 (0-0.3); Eosinophils Percent Auto 2.3 % (0-4.4); Hematocrit 29.6 % (37.0-47.0); Hemoglobin 9.8 g/dL (12.0-15.0); Immature Granulocyte Absolute 0.06 K/mm3 (0.00-0.031); Immature Granulocyte Percent A 0.9 % (0-0.5); Lymphocytes Absolute Auto 1.23 K/mm3 (0.9-3.2); Lymphocytes Percent Auto 17.9 % (18.3-44.2); Mean Corpuscular HGB Conc 33.1 g/dl (32-36); Mean Corpuscular Hemoglobin 36.6 pg (26-34); Mean Corpuscular Volume 110.4 fl (80-100); Mean Platelet Volume 10.7 fl (7.4-10.4); Monocytes Absolute Auto 0.8 K/mm3 (0.1-0.6); Monocytes Percent Auto 11.9 % (2.6-8.5); Neutrophils Absolute Auto 4.6 K/mm3 (1.3-6.7); Neutrophils Percent Auto 66.4 % (45.5-73.1); Platelet Count Result 392 k/mm3 (150-375); Red Blood Count 2.68 M/mm3 (4.2-5.4); Red Cell Distribution Width 16.1 % (11.5-14.5); White Blood Count 6.9 K/mm3 (4.5-10.0)
[2024-03-08 06:40] LABS: Alanine Aminotransferase 17 U/L (6-35); Albumin Level 2.8 g/dL (3.5-5.1); Alkaline Phosphatase 131 U/L (38-126); Anion Gap 7 mmol/L (4-12); Aspartate Amino Transferase 28 U/L (14-36); Bilirubin,Total 0.4 mg/dL (0.2-1.3); Blood Urea Nitrogen 10 mg/dL (7-17); Calcium 8.7 mg/dL (8.4-10.2); Carbon Dioxide 25 mmol/L (22-30); Chloride 102 mmol/L (98-107); Estimated CRCL calculation 103 ml/min; Estimated Glomerular Filt Rate > 60; Glucose 93 mg/dL (65-110); Potassium 3.6 mmol/L (3.4-5.0); Sodium 134 mmol/L (137-145)
[2024-03-08 07:01] LABS: Anisocytosis 1+; Macrocytosis 2+ (NORMAL); Platelet Estimate Adequate (Adequate); Polychromasia 1+; Schistocytes None Seen
[2024-03-08] MEDS: ASPIRIN 325 MG ENTERIC TABLET PO ×2 (08:14→20:18)
[2024-03-08] MEDS: PANTOPRAZOLE 40 MG TABLET PO ×2 (08:14→17:16)
[2024-03-08] MEDS: POTASSIUM CHLORIDE 20 MEQ ER TABLET PO ×2 (08:14→17:16)
--- NOTE | 2024-03-08 10:02 | PM.PNORT ---
Progress Note: A&P Assessment and Plan (1) Closed fracture of right hip: Qualifiers: Encounter type: subsequent encounter Fracture healing: with routine healing Qualified Code(s): S72.001D - Fracture of unspecified part of neck of right femur, subsequent encounter for closed fracture with routine healing Code(s): S72.001A - Fracture of unspecified part of neck of right femur, initial encounter for closed fracture Status: Acute Assessment and Plan: POD #8: Right IT femur fx with femoral neck fx extension resulting in right IT femoral nail with long stem. PT/OT. WBAT. Walker. HIGH FALL RISK. Continue pain control. Ice Hip. Protect skin. DVT prophylaxis with Aspirin. SCDs. Incentive Spirometry Use reviewed. Monitor Dressing. Improved drainage. Bowel Regimen. Dispo: SNF pending insurance authorization Plan Reviewed history, exam, radiographs and current labs with attending MD and covering surgeon, Dr. Jauregui, who agrees with current plan as indicated above. No further recommendations from Dr. Jauregui at this time. Subjective Subjective Date/Time Seen: 03/08/24 10:02 Post Op day: 8 Principal diagnosis: right proximal femur fracture Interval history: POD #8: Right IT femur fx with right IT femoral nail. Patient with concerns about right leg weakness. Pain improved. Right leg swelling improving. PT/OT. Tolerating PO intake well. Right thigh drainage resolved. Review of Systems Review of Systems: All systems reviewed & are unremarkable except as noted in HPI and below Exam Const: General: comfortable and no acute distress Eyes: Sclera: sclerae normal Resp: Effort & Inspection: normal respiratory effort Auscultation: clear to auscultation bilaterally Cardio: Rate: regular rate Rhythm: regular rhythm GI: GI Palp: Yes Soft to palpation Auscultation: normal bowel sounds Skin: Other: Ecchymosis to back of right hip. Extrem: Other: Surgical incision right hip and side of right knee with gauze and transparent right hip dressing, dry. Mild swelling. Distal incision, no drainage. Ecchymosis noted to the back of right hip. Soft thigh. Psych: Affect: normal affect Objective Data Vital Signs Vital Signs: Vital Signs - 24 hr 03/07/24 14:18 03/07/24 20:22 03/07/24 20:52 Temperature 35.7 C L 36.6 C Pulse Rate 89 100 Respiratory Rate 16 20 Blood Pressure 108/72 127/84 Pulse Oximetry 99 97 Oxygen Delivery Room Air 03/08/24 05:00 03/08/24 08:07 Temperature 36.1 C L Pulse Rate 86 Respiratory Rate 18 Blood Pressure 100/53 L Pulse Oximetry 97 Oxygen Delivery Room Air Intake/Output Intake/Output: Intake & Output 03/05/24 03/06/24 03/07/24 03/08/24 23:59 23:59 23:59 23:59 Intake Total 5112 573 8045 530 Balance 6779 142 0357 530 Meds/Results Medications: Active Medications Generic Name Dose Route Start Last Admin Trade Name Freq PRN Reason Stop Dose Admin Acetaminophen 500 mg 02/29/24 20:14 Acetaminophen 500 Mg Tablet PO Q6H PRN Pain Rated 1-3 Albuterol 2 puff 02/28/24 07:21 03/08/24 05:30 Albuterol Sulfate (*Sp) Aerosol 1 Puff INHALATION 2 puff QID PRN Administration Shortness Of Breath Or Wheezing Aspirin 325 mg 02/29/24 21:00 03/08/24 08:14 Aspirin 325 Mg Enteric Tablet PO 325 mg Q12HR DEIDRA Administration Calcium Carbonate 200 mg 03/03/24 05:19 03/05/24 12:13 Calcium Carbonate (Tums) 500 Mg (200 Mg Elemental) PO 200 mg Q6H PRN Administration Indigestion Cyclobenzaprine HCl 10 mg 02/28/24 09:52 03/07/24 22:28 Cyclobenzaprine Hcl 10 Mg Tablet PO 10 mg Q8H PRN Administration Muscle Spasm Diazepam 5 mg 02/29/24 20:14 03/07/24 02:04 Diazepam (*Crx) 5 Mg Tablet PO 5 mg Q8H PRN Administration Muscle Spasm Hydrochlorothiazide 12.5 mg 02/29/24 21:00 03/07/24 21:10 Hydrochlorothiazide 12.5 Mg Capsule PO 12.5 mg HS [facility] Admi
[2024-03-08] MEDS: NICOTINE (*PBKC) 21 MG PATCH 1 PATCH TRANSDERM (10:49)
[2024-03-08 14:00] VITALS: BP 98/67; PULSE 89; RESP 16; TEMP 36; O2SAT 96
--- NOTE | 2024-03-08 14:19 | P.PNIM_ITS ---
Progress Note: A&P Assessment and Plan (1) Intertrochanteric fracture of right femur: Code(s): S72.141A - Displaced intertrochanteric fracture of right femur, initial encounter for closed fracture Status: Acute Assessment and Plan: * Patient is postop day8 from insertion of a trochanteric femoral nail into the right femur with Dr. Jauregui. Gauze covered in abd dressing intact. Orthopedic following. * Continue pain control * PT/OT * Continue Flexeril * Voiding well * Regular diet * Will need rehab placement, awaiting insurance approval. (2) Frequent falls: Code(s): R29.6 - Repeated falls Status: Acute Assessment and Plan: 02/28/24: * Patient reported a fall 1 week ago injuring her ribs * Reports that her falls are because of past surgery with her left ACL. She states that they removed her ACL?? * PT and OT ordered * see above plan of care 02/29/24: * No change to current treatment plan Continue PT/OT (3) Dizziness: Code(s): R42 - Dizziness and giddiness Status: Acute Assessment and Plan: * Denies dizziness today * hydrate * PT/OT * Up with assistance * Monitor blood pressure (4) Acute hypokalemia: Code(s): E87.6 - Hypokalemia Status: Acute Assessment and Plan: 02/28/24: * Potassium 3.1 * Will give 40 mEq of potassium IV today * Will check magnesium today 02/29/24: * Potassium 3.5 * No change to current treatment plan 03/01/24: * Resolved 03/02/24 : - Potassium 3.8 03/03/24: * Potassium 3.3 * Gave additional Potassium Chloride 20 meq PO x1. 03/04/24: * Potassium 3.6 03/05/24: * Potassium 3.8 03/06/24: * Potassium 3.6 03/07/24: * Potassium 4.0 03/08/24: * Potassium 3.6 * monitor labs (5) Anxiety: Code(s): F41.9 - Anxiety disorder, unspecified Status: Acute Assessment and Plan: 02/28/24: * Patient was given a dose of Atarax and Ativan while in the ED * Patient does not take anything at home for anxiety 02/29/24: * Continue to monitor 03/01/24: * No change to current treatment plan (6) Hypertension: Code(s): I10 - Essential (primary) hypertension Status: Acute Assessment and Plan: * Blood pressure 100/53 * Continue medications. * monitor blood pressures (7) Asthma: Code(s): J45.909 - Unspecified asthma, uncomplicated Status: Acute Assessment and Plan: 02/28/24: * Continue albuterol rescue inhaler 02/29/24: * No change to current treatment plan (8) Alcohol abuse: Code(s): F10.10 - Alcohol abuse, uncomplicated Status: Acute Assessment and Plan: 02/28/24: * Will check alcohol level- 12 * Patient was drinking alcohol yesterday prior to her fall. 02/29/24: * No change to current treatment plan (9) Tobacco abuse: Code(s): Z72.0 - Tobacco use Status: Acute Assessment and Plan: 02/28/24: * Nicotine patch ordered 02/29/24: * No change to current treatment plan Subjective Date/time seen: 03/08/24 14:19 Interval history: Patient reports pain was a 5 , frequent, and aching before receiving Ibuprofen and placing ice to right hip and right knee. Reports having a bowel movement this morning. Denies chest pain, palpitations, shortness of breath, nausea, vomiting, headache, or dizziness. Sitting up in bed. at the bedside. Review of Systems
--- NOTE | 2024-03-08 14:19 | PM.IMPN ---
Progress Note: A&P Assessment and Plan (1) Intertrochanteric fracture of right femur: Code(s): S72.141A - Displaced intertrochanteric fracture of right femur, initial encounter for closed fracture Status: Acute Assessment and Plan: Patient is postop day8 from insertion of a trochanteric femoral nail into the right femur with Dr. Jauregui. Gauze covered in abd dressing intact. Orthopedic following. Continue pain control PT/OT Continue Flexeril Voiding well Regular diet Will need rehab placement, awaiting insurance approval. (2) Frequent falls: Code(s): R29.6 - Repeated falls Status: Acute Assessment and Plan: 02/28/24: Patient reported a fall 1 week ago injuring her ribs Reports that her falls are because of past surgery with her left ACL. She states that they removed her ACL?? PT and OT ordered see above plan of care 02/29/24: No change to current treatment plan Continue PT/OT (3) Dizziness: Code(s): R42 - Dizziness and giddiness Status: Acute Assessment and Plan: Denies dizziness today hydrate PT/OT Up with assistance Monitor blood pressure (4) Acute hypokalemia: Code(s): E87.6 - Hypokalemia Status: Acute Assessment and Plan: 02/28/24: Potassium 3.1 Will give 40 mEq of potassium IV today Will check magnesium today 02/29/24: Potassium 3.5 No change to current treatment plan 03/01/24: Resolved 03/02/24 : - Potassium 3.8 03/03/24: Potassium 3.3 Gave additional Potassium Chloride 20 meq PO x1. 03/04/24: Potassium 3.6 03/05/24: Potassium 3.8 03/06/24: Potassium 3.6 03/07/24: Potassium 4.0 03/08/24: Potassium 3.6 monitor labs (5) Anxiety: Code(s): F41.9 - Anxiety disorder, unspecified Status: Acute Assessment and Plan: 02/28/24: Patient was given a dose of Atarax and Ativan while in the ED Patient does not take anything at home for anxiety 02/29/24: Continue to monitor 03/01/24: No change to current treatment plan (6) Hypertension: Code(s): I10 - Essential (primary) hypertension Status: Acute Assessment and Plan: Blood pressure 100/53 Continue medications. monitor blood pressures (7) Asthma: Code(s): J45.909 - Unspecified asthma, uncomplicated Status: Acute Assessment and Plan: 02/28/24: Continue albuterol rescue inhaler 02/29/24: No change to current treatment plan (8) Alcohol abuse: Code(s): F10.10 - Alcohol abuse, uncomplicated Status: Acute Assessment and Plan: 02/28/24: Will check alcohol level- 12 Patient was drinking alcohol yesterday prior to her fall. 02/29/24: No change to current treatment plan (9) Tobacco abuse: Code(s): Z72.0 - Tobacco use Status: Acute Assessment and Plan: 02/28/24: Nicotine patch ordered 02/29/24: No change to current treatment plan Subjective Date/time seen: 03/08/24 14:19 Interval history: Patient reports pain was a 5 , frequent, and aching before receiving Ibuprofen and placing ice to right hip and right knee. Reports having a bowel movement this morning. Denies chest pain, palpitations, shortness of breath, nausea, vomiting, headache, or dizziness. Sitting up in bed. at the bedside. Review of Systems Review of Systems: All systems reviewed & are unremarkable except as noted in HPI and below Exam Const: General: no acute distress HENMT: Mouth: Yes moist mucous membranes Resp: Effort & Inspection: normal respiratory effort Auscultation: clear to auscultation bilaterally Cardio: Rate: regular rate GI: GI Palp: Yes Soft to palpation Auscultation: normal bowel sounds Skin: Other: Ecchymosis to back of right hip. Extrem: Other: Surgical incision right hip and side of right knee with gauze and transparent dressing. Mild swelling. Distal incision, no drainage. Ecchymosis noted to
[2024-03-08] MEDS: oxyCODONE/ACETAMINOPHEN (*CRX) 10-325 MG TABLET 1 TAB PO (18:08)
[2024-03-08 20:02] VITALS: BP 111/81; PULSE 93; RESP 16; TEMP 36.5; O2SAT 100
[2024-03-08] MEDS: lisinopriL 20 MG TABLET PO (20:18)
[2024-03-08] MEDS: hydroCHLOROthiazide 12.5 MG CAPSULE PO (20:18)
[2024-03-08] MEDS: CYCLOBENZAPRINE HCL 10 MG TABLET PO (20:26)
[2024-03-08] MEDS: MELATONIN 5 MG TABLET 10 MG PO (23:00)
[2024-03-09] MEDS: IBUPROFEN 600 MG TABLET PO ×2 (01:55→08:48)
[2024-03-09] MEDS: ALBUTEROL SULFATE (*SP) AEROSOL 1 PUFF 2 PUFF INHALATION (02:12)
[2024-03-09 02:15] VITALS: PULSE 88; RESP 18
[2024-03-09 05:54] LABS: Basophils Absolute Auto 0.1 K/mm3 (0.0-0.1); Basophils Percent Auto 0.8 % (0.2-1.2); Eosinophils Absolute Auto 0.2 K/mm3 (0-0.3); Eosinophils Percent Auto 2.9 % (0-4.4); Hematocrit 29.7 % (37.0-47.0); Hemoglobin 9.7 g/dL (12.0-15.0); Immature Granulocyte Absolute 0.05 K/mm3 (0.00-0.031); Immature Granulocyte Percent A 0.8 % (0-0.5); Lymphocytes Absolute Auto 1.26 K/mm3 (0.9-3.2); Lymphocytes Percent Auto 19.4 % (18.3-44.2); Mean Corpuscular HGB Conc 32.7 g/dl (32-36); Mean Corpuscular Hemoglobin 36.5 pg (26-34); Mean Corpuscular Volume 111.7 fl (80-100); Mean Platelet Volume 10.7 fl (7.4-10.4); Monocytes Absolute Auto 0.7 K/mm3 (0.1-0.6); Monocytes Percent Auto 11.4 % (2.6-8.5); Neutrophils Absolute Auto 4.2 K/mm3 (1.3-6.7); Neutrophils Percent Auto 64.7 % (45.5-73.1); Platelet Count Result 437 k/mm3 (150-375); Red Blood Count 2.66 M/mm3 (4.2-5.4); White Blood Count 6.5 K/mm3 (4.5-10.0)
[2024-03-09 05:56] VITALS: BP 95/51; PULSE 80; RESP 16; TEMP 36.7; O2SAT 98
[2024-03-09 06:03] LABS: Alanine Aminotransferase 17 U/L (6-35); Albumin Level 2.8 g/dL (3.5-5.1); Alkaline Phosphatase 133 U/L (38-126); Anion Gap 4 mmol/L (4-12); Aspartate Amino Transferase 31 U/L (14-36); Bilirubin,Total 0.3 mg/dL (0.2-1.3); Blood Urea Nitrogen 11 mg/dL (7-17); Calcium 8.6 mg/dL (8.4-10.2); Carbon Dioxide 27 mmol/L (22-30); Chloride 103 mmol/L (98-107); Estimated CRCL calculation 103 ml/min; Estimated Glomerular Filt Rate > 60; Glucose 95 mg/dL (65-110); Potassium 3.9 mmol/L (3.4-5.0); Sodium 134 mmol/L (137-145)
[2024-03-09 06:48] LABS: Anisocytosis 2+; Hypochromasia 1+; Macrocytosis 1+ (NORMAL); Platelet Estimate Increased (Adequate); Schistocytes None Seen
--- NOTE | 2024-03-09 07:58 | PM.IMPN ---
Progress Note: A&P Assessment and Plan (1) Intertrochanteric fracture of right femur: Code(s): S72.141A - Displaced intertrochanteric fracture of right femur, initial encounter for closed fracture Status: Acute Assessment and Plan: Patient is postop day8 from insertion of a trochanteric femoral nail into the right femur with Dr. Jauregui. Gauze covered in abd dressing intact. Orthopedic following. Continue pain control PT/OT Continue Flexeril Voiding well Regular diet Will need rehab placement, awaiting insurance approval. DVT prophylaxis with ASA (2) Frequent falls: Code(s): R29.6 - Repeated falls Status: Acute Assessment and Plan: Patient reported a fall 1 week prior to admission, injured ribs Reports that her falls are because of past surgery with her left ACL. She states that they removed her ACL?? PT/OT following see above plan of care (3) Dizziness: Code(s): R42 - Dizziness and giddiness Status: Acute Assessment and Plan: Denies dizziness today hydrate PT/OT Up with assistance Monitor blood pressure (4) Acute hypokalemia: Code(s): E87.6 - Hypokalemia Status: Acute Assessment and Plan: Potassium low on admission, 3.1, s/p 40meq. Repleted again with 20meq for 3.3 on 03/03. Normalized (5) Anxiety: Code(s): F41.9 - Anxiety disorder, unspecified Status: Acute Assessment and Plan: No home meds. s/p atarax and ativan in the ED (6) Hypertension: Code(s): I10 - Essential (primary) hypertension Status: Acute Assessment and Plan: Home meds: Lisinopril 20/HCTZ 12.5 daily Blood pressure controlled --Continue home meds (7) Asthma: Code(s): J45.909 - Unspecified asthma, uncomplicated Status: Acute Assessment and Plan: Albuterol PRN (8) Alcohol abuse: Code(s): F10.10 - Alcohol abuse, uncomplicated Status: Acute Assessment and Plan: Drinking alcohol prior to fall, ETOH level 12. Patient reports 8 drinks but last was several hours prior. No withdrawal symptoms. SW discussed with her. (9) Tobacco abuse: Code(s): Z72.0 - Tobacco use Status: Acute Assessment and Plan: Nicotine patch ordered Time Spent With Patient Time: 53 minutes Subjective Date/time seen: 03/09/24 07:58 Interval history: Reports slightly increased edema to ankle, right leg, but overall more mobile than last week. Waiting for insurance decision for acute rehab. Had a BM and voiding ok. Right leg pain/spasms, improve with flexeril Exam Narrative: General - Awake and alert. No acute distress Eyes - PERRLA, EOM intact ENT - No thrush, No erythema Neck - No noticeable or palpable swelling Lymph Nodes - No lymphadenopathy Cardiovascular - RRR no m/r/g, no JVD Lungs: Clear to auscultation, No wheezing, use of accessory muscles, no crackles or wheezes. Skin - Skin warm and dry, no wounds or rashes Abdomen - Normal bowel sounds, abdomen soft and nontender Extremities - Right lower extremity edema, no erythema, cyanosis or clubbing, dressings to right leg--clean and dry, Musculoskeletal - 5/5 strength, normal range of motion, no swollen or erythematous joints. Neurological ? Alert and oriented x 3, CN 2-12 grossly intact. Sensation normal. Objective Data Vital Signs Vital Signs: Vital Signs - 24 hr 03/08/24 08:07 03/08/24 14:00 03/08/24 20:02 Temperature 96.8 F L 97.7 F Pulse Rate 89 93 Respiratory Rate 16 16 Blood Pressure 98/67 L 111/81 Pulse Oximetry 96 100 Oxygen Delivery Room Air 03/09/24 02:15 03/09/24 05:56 Temperature 98.0 F Pulse Rate 88 80 Respiratory Rate 18 16 Blood Pressure 95/51 L Pulse Oximetry 98 Oxygen Delivery Intake/Output Intake/Output: Intake & Output 03/06/24 03/07/24 03/08/24 03/09/24 23:59 23:59 23:59 23:59 Intake Total 420 2030 1230 400 Output To
[2024-03-09] MEDS: ASPIRIN 325 MG ENTERIC TABLET PO (08:39)
[2024-03-09] MEDS: PANTOPRAZOLE 40 MG TABLET PO (08:39)
[2024-03-09] MEDS: POTASSIUM CHLORIDE 20 MEQ ER TABLET PO (08:39)
[2024-03-09] MEDS: NICOTINE (*PBKC) 21 MG PATCH 1 PATCH TRANSDERM (08:40)
[2024-03-09 14:00] VITALS: BP 88/59; PULSE 77; RESP 16; TEMP 36.5; O2SAT 98
--- NOTE | 2024-03-09 15:24 | PM.DS ---
DS: Admitting Diagnosis Discharge Date 03/09/24 Admitting Diagnosis Fall Right femur fracture DS: Discharge Diagnosis Discharge Diagnosis (1) Frequent falls: Code(s): R29.6 - Repeated falls Status: Acute (2) Intertrochanteric fracture of right femur: Code(s): S72.141A - Displaced intertrochanteric fracture of right femur, initial encounter for closed fracture Status: Acute DS: Summary Hospital Course Reason for hospitalization: Copied from [facility] 02/27: This is a 53-year-old female with a significant past medical history of anxiety, arthritis, asthma, hypertension, current daily smoker, marijuana abuse, alcohol abuse who presented to the ER for evaluation after a fall. Patient reports following history of presenting illness. She states that she fell last night when walking to her bedroom. Patient has history of frequent falls which she contributes to having her ACL removed in her left knee. She states that she had a fall about 1 week ago and injured her ribs. She was walking with crutches due to her last fall and had been using crutches at the time of this fall. She also admits that she drank 4 beers and 2 shots of fireball last night before she fell. Patient denies any fever, chills, nausea, vomiting, diarrhea, abdominal pain, chest pain, shortness of breath. Patient endorses 10/10 pain with muscle spasms. Workup in the hospital included a hip x-ray which showed an intertrochanteric fracture of the proximal right femur, mild right hip osteoarthritis. Initial labs showed white blood cell count of 7.0, hemoglobin 11.7, INR 1.1, sodium 135, potassium 3.1, bicarb 18, AST 42. UA was obtained and was negative. Patient was given a dose of Atarax, ibuprofen, morphine, Ativan, and 1 L of normal saline while in the ED. Orthopedic surgery was consulted. Hospital Course: Yanira Oshea is a 53 year old female admitted for treatment of a right femur fracture after a fall at home. Intertrochanteric fracture of right femur- Displaced intertrochanteric fracture of right femur, initial encounter for closed fracture Orthopedic surgery was consulted s/p trochanteric femoral nail into the right femur with Dr. Jauregui. Gauze covered in abd dressing intact. Orthopedic followed during admission. --ASA BID for DVT prophylaxis --Right lower extremity edematous, venous duplex negative for DVT on 03/09 --Follow up with orthopedic surgery, reviewed post op instructions and staple removal Post op pain?Tylenol, Ibuprofen, Percocet, and Flexeril prn Miralax and Senna for bowel regimen. ? PT/OT evaluated and recommended rehab, she was discharged home with home health. Alcohol use?Patient reported higher than recommended alcohol use intermittently. No withdrawal symptoms during admission. Recommended cutting back, ? ? Dizziness?In the setting of ETOH, likely dehydration. Resolved Asthma?Albuterol prn Hypokalemia?potassium 3.1, intermittently repleted. Normalized HTN?Home meds: Lisinopril 20/HCTZ 12.5 daily Blood pressure controlled --Continue home meds Anxiety continued lorazepam, atarax prn Tobacco use--recommended cessation, nicotine patch Status at Discharge Cognitive/behavioral status at discharge: A&Ox4 Time Spent with Patient Time attestation: Total time spent providing and/or coordinating discharge services: Exam Narrative: General - Awake and alert. No acute distress Eyes - PERRLA, EOM intact ENT - No thrush, No erythema Neck - No noticeable or palpable swelling Lymph Nodes - No lymphadenopathy Cardiovascular - RRR no m/r/g, no JVD Lungs: Clear to auscultation, No wheezing, use of accessory muscles, no crackles or wheezes. Skin - Skin warm and dry, no wounds or rashes Abdomen - Normal bowel sounds, abdomen soft and nontender Extremities - Right lower extremity edema, no erythema, cyanosis or clubbing, dressings to right leg--clean and dry, Musculoskeletal - 5/5 strength, normal range of motion, no swollen or erythem
== END 2024-03-09 16:41 | disposition home health service (06) | DRG 482 ==
LOC: ANHED 02-28 06:12 → ANH2MED 02-28 06:40
PROVIDERS: Emergency Medicine; Nurse Practitioner Acute Care; Nurse Practitioner Family; Orthopaedic Surgery; Admitting Provider Internal Medicine; Emergency Provider Registered Nurse; PCP Internal Medicine; Visit Provider Nurse Practitioner Acute Care
PROC: 0QS634Z Reposition Right Upper Femur with Internal Fixation Device, Percutaneous Approach (ICD-10-PCS; CPT 27245; principal; 2024-02-29 15:00)
DX: S72.141A Displaced intertrochanteric fracture of right femur, initial encounter for closed fracture (principal); R29.6 Repeated falls; F41.9 Anxiety disorder, unspecified; I10 Essential (primary) hypertension; F17.210 Nicotine dependence, cigarettes, uncomplicated; F12.10 Cannabis abuse, uncomplicated; F10.10 Alcohol abuse, uncomplicated; E86.0 Dehydration; R42 Dizziness and giddiness; J45.909 Unspecified asthma, uncomplicated; E87.6 Hypokalemia; M17.0 Bilateral primary osteoarthritis of knee; K21.9 Gastro-esophageal reflux disease without esophagitis; E66.9 Obesity, unspecified; Z68.30 Body mass index [BMI] 30.0-30.9, adult
CPT/HCPCS: 36415; 71045; 73502; 73700; 80053; 80307; 81003; 83735; 85025; 85610; 85730; 86850; 86900; 86901; 93005; 93971; 94640; 96361; 96374; 96375; 96376; 97110; 97116; 97161; 97165; 97530; 97535; 99199; 99285; A9270; C1713; G0378; J0330; J0690; J1100; J1170; J2060; J2250; J2270; J2405; J2704; J3010; J3480; J7030; J7040; J7120

== ENCOUNTER 2024-04-20 08:16 | Outpatient (CLI) | payer OTHER, SELFPAY ==
--- NOTE | ~2024-04-20 | DEXA_ITS ---
Bone Density Report Name: LUANN BLANC Age: 53 Sex: Female Ethnicity: White Date of : 1970 Indication: postmenopausal; screening for osteoporosis; height loss; prior fracture; asthma or emphysema; Referring Provider: RAUL, LOGAN Hernandez Study: Bone densitometry was performed. Exam Date: April 20, 2024 Accession number: [id number] Bone Density: Region BMD T-score Z-score Classification AP Spine(L1-L4) 0.791 -2.3 -1.4 Osteopenia Femoral Neck (Left) 0.719 -1.2 -0.3 Osteopenia Total Hip (Left) 0.808 -1.1 -0.5 Osteopenia World Health Organization criteria for BMD impression classify patients as: Normal (T-score at or above -1.0), Osteopenia (T-score between -1.0 and -2.5), or Osteoporosis (T-score at or below -2.5). 10-year Fracture Risk: FRAX not reported because: Prior hip or vertebral fracture Clinical Information Provided by Patient: Have had a previous hip or vertebral fracture Has had a low trauma fracture Smokes Has used the following medications: Vitamin D Has the following medical conditions: Asthma or Emphysema Patient maximum height was 66 Menopause Age: 52 No regular weight bearing exercise Drinks caffeinated beverages Onset of menses at age 17 Number of children 5 Missed period for more than 6 months in a row Impression: The patient has low bone mass, based on the Total Spine T-score. The patient has risk factors, including: smoking, previous fracture. Discussion: INCREASED RISK OF FRACTURE DUE TO HISTORY OF FRACTURE. The patient's previous fracture puts the patient at high risk of a future fracture. In untreated patients, the risk of osteoporotic fracture increases approximately two-fold for each 1.0 SD decrease in T-score. Low bone density is not the only risk factor for fracture; also consider factors such as patient's age, frailty or poor health, risk of falling, risk of injury, previous osteoporotic fracture, family history of osteoporosis, cigarette smoking, low body weight, etc. Not everyone with a low trauma fracture has osteoporosis; osteomalacia and other metabolic bone disorders should also be considered. Patients who have osteoporosis should be evaluated for specific diseases and conditions (secondary causes) that may cause or contribute to bone loss and fracture risk. National Osteoporosis Foundation (NOF) recommends pharmacologic intervention for patients with a prior hip or vertebral fracture regardless of BMD T-score. The patient should follow a healthful lifestyle (good nutrition with adequate calcium and vitamin D, and appropriate weight-bearing exercise). Follow-Up: Consider a repeat BMD and Vertebral Fracture Assessment (VFA) exam in 2 years or sooner if medically necessary, to reassess this patient's status. Reported by: KELTON on 04/20/2024 8:56:00 AM. Reviewed, dictated and finalized at location AArnaldo CANNON
== END 2024-04-20 08:17 | disposition home or self-care (01) ==
LOC: ANHIMG 08:17
PROVIDERS: PCP Internal Medicine; Visit Provider Internal Medicine
DX: Z78.0 Asymptomatic menopausal state (principal); M85.88 Other specified disorders of bone density and structure, other site; M85.852 Other specified disorders of bone density and structure, left thigh
CPT/HCPCS: 77080

== ENCOUNTER 2024-12-13 07:21 | Observation (INO) | payer OTHER, SELFPAY ==
[2024-12-13] VITALS (14 sets, daily range): BP systolic 116–160; BP diastolic 78–109; PULSE 77–98; RESP 19–26; TEMP 36.4–36.7; O2SAT 97–100; BMI 38.6
--- NOTE | ~2024-12-13 | XR_ITS ---
HISTORY: Foot pain. NKI COMPARISON: None TECHNIQUE: 2 views of the right foot were performed FINDINGS: Hallux valgus deformity is present. No acute fracture or dislocation is appreciated. Significant degenerative disease is present with joint space narrowing, osteophyte formation and anky losis. The base of the fifth metatarsal is intact. A large calcaneal spur is noted. Os trigonum is incidentally noted. No significant soft tissue swelling is present. IMPRESSION: Degenerative disease, without acute fracture. Reviewed, dictated and finalized at location A.
--- NOTE | ~2024-12-13 | CT_ITS ---
Non-contrast Head CT History: Confusion Technique: Axial non-contrast imaging of the brain was performed. Dose reduction technique was used on this scan by utilizing automated exposure control and iterative reconstruction technique. The dose -length product (DLP) was 1891.67 mGy-cm. Findings: There is no evidence of intracranial hemorrhage, mass lesion, or acute infarct. Brain par enchyma appears normal. The ventricles and subarachnoid spaces are normal in size. The calvarium ap pears normal. The visualized paranasal sinuses and mastoid air cells are clear. Impression: No significant abnormality seen. Exams somewhat degraded by motion artifact. Reviewed, dictated and finalized at location . Impression: No significant abnormality seen. Exams somewhat degraded by motion artifact.
--- NOTE | ~2024-12-13 | XR_ITS ---
CHEST RADIOGRAPH CLINICAL HISTORY: ALTERED . COMPARISON: 03/06/2024 TECHNIQUE: Single portable view of the chest. FINDINGS The cardiomediastinal silhouette is unremarkable. Low lung volumes. The lungs are otherwise clear. IMPRESSION: Low lung volumes, without focal infiltrate or effusion. Reviewed, dictated and finalized at location A.
--- NOTE | ~2024-12-13 | MR_ITS ---
EXAMINATION: MR brain/brain stem wo/w con DATE: 12/15/2024 09:33 INDICATION: Seizures TECHNIQUE: Magnetic resonance imaging (MRI) of the brain and brainstem was performed without and with 20 mL Multihance intravenous contrast. Sequences included sagittal and axial T1-weighted SE, axial d iffusion-weighted FS SE, axial T2*-weighted GRE, axial T2-weighted FLAIR Propeller, axial T2-weighted Propeller, coronal T2-weighted FLAIR, and coronal T1-weighted 3D FSPGR. Postcontrast axial T1-weight ed FSE was obtained. Apparent diffusion coefficient (ADC) maps were created. COMPARISON: Head CT dated 12/13/2024 FINDINGS: There are no areas of restricted diffusion to suggest acute infarction. No intracranial hemorrhage or abnormal intracranial mass lesion. 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 There are no intraparenchymal signal abnormalities seen on the other pulse sequences. Or hippocampi are normal and symmetric. No evident regalado matter he terotopias or other neuronal migrational abnormalities. The ventricles are symmetric and normal in si ze. There are no abnormal extra-axial fluid collections. Flow voids are seen in the cerebral arteries on the T2-weighted sequences consistent with their expected patency. There is mucosal thickening the bilateral ethmoid] maxillary sinuses. Visualized orbits and soft tissues are unremarkable. There are no areas of abnormal enhancement on the post contrast images. IMPRESSION: 1. No acute intracranial process. 2. 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 Reviewed, dictated and finalized at location A. IMPRESSION: 1. No acute intracranial process. 2. 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
--- OUTSIDE RECORDS SUMMARY | 2024-12-13 07:28 | XMS_ITS | Clinical Summary ---
Author Organization [facility] Address [address] [place] [id number] Care Team Providers Care Cargo Surveyor Name Role Phone Unavailable Primary Care Provider Unavailabl e Social History Tobacco Use Types Packs/Day Years Used Date Smoking Tobacco: Never Assessed Comments Unknown Sex and Gender Information Value Date Recorded Sex Assigned at Not on file Legal Sex Female 9:49 PM CDT Gender Identity Not on file Sexual Orientation Not on file Plan of Treatment Health Maintenance Due Date Last Done Comments Cervical Cancer Screening Pa p Smear (Age 30 to 64) Every 3 Years 1971 Colorectal Cancer Screening Colonoscopy (10 Years) 1971 Annual Physical 1974 Hepatitis C 1989 DTaP, Tdap and Td Vaccines ( 1 - Tdap) 1990 Hepatitis B Vaccines (1 of 3 - 19+ 3-dose series) 1990 Cervical Cancer Screening Pa p with HPV Testing (Age 30 to 64) Every 5 Years 2001 Cervical Cancer Screening with HPV 2001 Mammogram Screening 2011 Pneumococcal Vaccine: 50+ Ye ars (1 of 1 - PCV) 2021 Zoster Vaccines (1 of 2) 2021 COVID-19 Vaccine ( - 2023-2 5 season) 2024 Meningococcal B Vaccine Aged Out No l onger eligible based on patient's age to complete this topic Meningococcal Vaccine Aged Out No nuria michael eligible based on patient's age to complete this topic RSV Immunizations Under 20 Months Aged Out No longer eligible based on patient's age to complete this topic
--- OUTSIDE RECORDS SUMMARY | 2024-12-13 07:28 | XMS_ITS | Clinical Summary ---
Author Organization [email or web address] Address [address] [facility] [place] [address] Care Team Providers Care Reinsurance Clerk Name Role Phone Julio C Dutton MD Primary Care Provider [phone] Source Comments [email or web address],non-owned Affiliates and Associated Physician Practices is amultiple site organization consisting of ambulatory clinics and hospital sitesin [place], [place], [place]. This disclosure is being madepursuant to the Care Everywhere program and may not contain all information available regarding this patient. Last updated 18.[email or web address] Allergies No known active allergies Medications * Be aware that medications may not be up to date on this document. Alwaysverify current medications with the patient. FIBER ADULT GUMMIES PO Active albuterol HFA (PROVENTIL;VENTOL IN;PROAIR) 108 (90 BASE) MCG/ACT inhaler Inhale 2 puffs by mouth every 6 hours as needed Active Meloxicam (MOBIC PO) Active Acetaminophen (TYLENOL ARTHRITIS PAIN PO) Active LISINOPRIL PO Active methylPREDNISolon e (MEDROL DOSEPAK) 4 MG tabletIndications :Mild intermittent asthma with acute exacerbation (HCC) Take by mouth as directed 1 Each 9 Active Social History Tobacco Use Types Packs/Day Years Used Date Smoking Tobacco: Every Day Smokeless Tobacco: Never Comments No Sex and Gender Information Value Date Recorded Sex Assigned at Not on file 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 Gender Identity Not on file Sexual Orientation Not on file Last Filed Vital Signs Vital Sign Reading Time Taken Comments Blood Pressure 128/68 05/17/2019 11:07 AM LASER MACHINE OPERATOR Pulse 91 05/17/2019 11:07 AM LASER MACHINE OPERATOR Temperature 36.8 C (98.2 F) 05/17/2019 11:07 AM LASER MACHINE OPERATOR Respiratory Rate 15 07/17/2018 11:07 AM LASER MACHINE OPERATOR Oxygen Saturation 99% 05/17/2019 11:07 AM LASER MACHINE OPERATOR Inhaled Oxygen Concentration - - Weight 81.6 kg (180 lb) 05/17/2019 11:07 AM LASER MACHINE OPERATOR Height 167.6 cm (5' 6) 05/17/2019 11:07 AM LASER MACHINE OPERATOR Body Mass Index 29.05 05/17/2019 11:07 AM LASER MACHINE OPERATOR Plan of Treatment Health Maintenance Due Date Last Done Comments COLOGUARD (AGES 45-75) - COL ON CA SCREENING 1971 COLON MONITORING 1971 COLONOSCOPY - COLON CA SCREENING 1971 CT COLONOGRAPHY - COLON CA SCREENING 1971 Colorectal Cancer Screening 1971 FIT - COLON CA SCREENING 1971 FLEX SIG - COLON CA SCREENING 1971 LIPID TESTING 1971 MAMMOGRAM 1971 HIV SCREENING 1986 HEPATITIS C SCREENING 05/27/1989 DTAP/TDAP/TD VACCINES (1 - Tdap) 1990 HEPATITIS B VACCINE (1 of 3 - 19+ 3-dose series) 1990 SCREENING FOR DIABETES 08/23/2017 PNEUMOCOCCAL VACCINE 50+ (1 of 1 - PCV) 2021 ZOSTER VACCINE (1 of 2) 2021 COVID-19 VACCINE (1 - 2023-2 5 season) 2024 DEPRESSION SCREENING 06/08/2024 INFLUENZA VACCINE (Season Ended) 2025 HIB VACCINE Aged Out No longer eligi ble based on patient's age to complete this topic HPV VACCINE Aged Out No longer eligi ble based on patient's age to complete this topic MENINGOCOCCAL (Group B) VACC INE SHARED DECISION-MAKING Aged Out No longer eligibl e based on patient's age to complete this topic MENINGOCOCCAL GROUPS A/C/Y/W VACCINE Aged Out No longer eligible b ased on patient's age to complete this topic Insurance [employer] Care Teams Reinsurance Clerk Relationship Specialty Start [place] [id number] [place] [address] [address] [place] [id number] PCP - General Internal Medicine 08/23/17
--- OUTSIDE RECORDS SUMMARY | 2024-12-13 07:29 | XMS_ITS | Data Portability ---
Author Organization [facility], Main Office Address [address] [place] [address] Assessment No assessment recorded. Plan of Treatment Reminders Order Date Submit Date Provider Last Modified By Organization Details Last Modified Time Details Appointments Any 15 2024 09:15A M Julio C Dutton MD Not available Not available Not available Lab TSH, serum or plasma 2023 [facility], [address] [place], [address], 03/21/2024 20:05:24 CBC w/ auto diff [email or web address], [address] [place], [address], 03/28/2024 08:23:04 vitamin B12, serum 2023 [facility], [address] [place], [address], 03/21/2024 20:05:24 vitamin D, 25-hydr oxy, total, serum 2023 [facility], [address] [place], [address], 03/21/2024 20:05:24 CMP, serum or plasma 2023 [facility], [address] [place], [address], 03/21/2024 20:05:24 urinaly sis, dipstic k 2023 024 [facility] [address], [address] [place], [address], 08/24/2023 13:07:00 urinaly sis complet e, reflex culture 2023 024 [facility] (Lab), [address] [place], [address], 08/24/2023 20:58:15 urinaly sis, complet e [address], [address] [place], [address], 06/22/2023 08:42:42 CBC w/ auto diff 2023 024 [facility], [address] [place], [address], 06/16/2023 19:33:05 CMP, serum or plasma 2023 024 [facility], [address] [place], [address], 06/16/2023 20:30:10 amylase + lipase, serum [address], [address] [place], [address], 06/22/2023 08:42:42 Referral None recorde d. Procedures None recorde d. Surgeries None recorde d. Imaging MAMMO, screeni izzy, digital , bilater al [address], [address] [place] [address], [address], 11/17/2024 12:03:07 LDCT, chest, for lung cancer screeni izzy - Please call patient to samantha valdez 2024 025 [facility], [address] [place] [address], [address], 11/17/2024 12:31:28 MAMMO, screeni ng, digital , bilater al - Please call patient to schedul e. 2023 024 [email or web address] [facility], [address], [place], [address], 04/19/2024 10:09:02 bone density - Please call patient to schedul e. Please call office if patient cannot be schedul ed prior to 024, thank you. 2023 [email or web address] [facility], [address], [place], [address], 04/25/2024 11:57:59 US, pelvis, complet e 2023 024 [email or web address] ([facility]), [address] [facility], [place], [place], [address], 07/07/2023 08:37:53 Medication Orders sertral ine 100 mg tablet 2024 025 [facility] #[id number], [address], [place], [place], [id number], 11/17/2024 10:46:55 Zepboun d 2.5 mg/0.5 mL subcuta neous pen injecto r 2024 025 [facility] #88898, [address], [place], [place], [id number], 11/17/2024 10:49:10 Airsupr a 90 mcg-80 mcg/act uation HFA aerosol inhaler 2024 025 [facility] #25946, [address], [place], [place], [id number], 07/21/2024 10:43:55 sertral ine 50 mg tablet 2024 [facility] #18859, [address], [place], [place], [id number], 11/17/2024 10:47:33 atorvas tatin 10 mg tablet 2023 024 [email or web address] [facility] #50205, [address], [place], [place], [id number], 07/21/2024 10:17:40 albuter ol sulfate HFA 90 mcg/act uation aerosol inhaler 2023 024 [email or web address] 1 [facility] #16568, [address], [place], [place], [id number], 11/17/2024 10:14:58 lisinop ril 20 mg-hydr ochloro thiazid e 12.5 mg tablet 2023 024 [facility] #41409, [address], [place], [place], [id number], 03/21/2024 11:10:55 omepraz ole 40 mg capsule ,delaye d release 2023 024 [facility] #10302, [address], [id number], 03/21/2024 11:11:12 potassi um chlorid e ER 20 mEq tablet, extende d release 2023 024 [email or web address] [facility] #68691, [address], [id number], 03/23/2024 10:09:57 omepraz ole 40 mg capsule ,delaye d release [address] [facility][id number], [address] , [place], [place], [id number], 06/15/2023 13:09:07 Patient TargetsNo targets recorded. Patient Instructions Encounter Date Encounter Id Patient Instructions Last Modified By Organization Details Last Modified Time 03/21/2024 [id number] advance care planning: care instructions Not available 03/21/2024 16:57:55 advance directives: care instructions Not available 03/21/2024 16:57:54 [place] Advance Directives Not available 03/21/2024 16:57:54 risk assessment* Not available 03/21/2024 16:57:55 INFLUENZA VACCIN E Next vaccination to be given fall TD/TDAP Patient will get at local pharmacy/health department PNEUMONIA VACCINE Recommended at age 65 SHINGLES Patient will get at local pharmacy/health department MAMMOGRAM: Last Mammogram __ Recommended today DEXA SCAN No screening indicated CERVICAL SCREENING/PELVIC EXAMINATION Recommended today COLORECTAL SCREENING: Last Colonoscopy No screening necessary patient is up to date DEPRESSION SCREENING Positive BMI Overweight try to lose 15% of your body weight NUTRITION DASH Diet PHYSICAL ACTIVITY Need more exercise/physical activity minimum of 10-20 minutes of activity that causes mild breathlessness/da y VISION Recommended today ALCOHOL USE Occasional/Social Use TOBACCO USE current tobacco use LUNG CANCER SCREENING SEXUALLY ACTIVE Yes, Patient is in monogamous relationship HEPATITIS C SCREENING Not indicated GLUCOSE SCREENING Not needed LIPID SCREENING Not needed [email or web address] Not available 03/21/2024 13:32:19 Reason for Referral None Reported. Results Created Date Observation Date Name Description Value Unit Range Abnormal Flag Note LastModifiedBy Organization Detail LastModifiedTime 06/15/19 24 06/16/2023 TEST NOT PERFO RMED test not performed SEE COMMEN T SPECI MEN OUTSI DE OF STABI LITY TIME Not Available [facility] (Lab) [address], [place], [address], 06/16/2023 20:21:30 06/15/19 24 06/16/2023 TEST NOT PERFO RMED test not performed SEE COMMEN T SPECI MEN OUTSI DE OF STABI LITY TIME CBC NOT PERFO RMED Not Available [facility] (Lab) [address] [place], [address], 06/16/2023 20:21:50 06/15/19 24 06/16/2023 COMPR EHENS MISTY METAB OLIC PANEL sodium 137 mmol/ L 137-14 5 Not Available [facility] (Lab) [address] [place], [address], 06/16/2023 20:30:10 06/15/19 24 06/16/2023 COMPR EHENS MISTY METAB OLIC PANEL potassium 3.8 mmol/ L 3.5-5. 1 Not Available [facility] (Lab) [address] [place], [address], 06/16/2023 20:30:10 06/15/19 24 06/16/2023 COMPR EHENS MISTY METAB OLIC PANEL chloride 107 mmol/ L 98-107 Not Available [facility] (Lab) [address] [place], [address], 06/16/2023 20:30:10 06/15/19 24 06/16/2023 COMPR EHENS MISTY METAB OLIC PANEL carbon dioxide 22 mmol/ L 22-30 Not Available [facility] (Lab) [address] [place], [address], 06/16/2023 20:30:10 06/15/19 24 06/16/2023 COMPR EHENS MISTY METAB OLIC PANEL anion gap 11.8 mmol/ L 14-22 low Not Available [facility] (Lab) [address] [place], [address], 06/16/2023 20:30:10 06/15/19 24 06/16/2023 COMPR EHENS MISTY METAB OLIC PANEL glucose 94 mg/dL 70-99 Not Available [facility] (Lab) [address] [place], [address], 06/16/2023 20:30:10 06/15/19 24 06/16/2023 COMPR EHENS MISTY METAB OLIC PANEL BUN 3 mg/dL 8-19 low Not Available [facility] (Lab) [address] [place], [address], 06/16/2023 20:30:10 06/15/19 24 06/16/2023 COMPR EHENS MISTY METAB OLIC PANEL creatinine 0.45 mg/dL 0.66-1 .25 low Not Available [facility] (Lab) [address] [place], [address], 06/16/2023 20:30:10 06/15/19 24 06/16/2023 COMPR EHENS MISTY METAB OLIC PANEL GFR >60 Refer ence Range : Stuart ge GFR Healt hy Adult : >60 mL/mi n/1.7 3 m2 Chron ic Kidne y Disea se: 15-60 mL/mi n/1.7 3 m2 Kidne y Failu re: <15/m L/min /1.73 m2 www.n iddk. nih.g ov The MDRD study equat ion has not been valid ated in child kervin <18 years of age; pregn ant women ; the elder ly >85 years of age; or in some racia l or ethni c subgr oups, such as ny nics. Outsi de the valid ated blas eters , estim ated GFR is less accur ate, requi ring clini lenin judgm ent on a case- by-ca se basis . Clini lenin inter preta tion for other races and ages must be made by the clini barry. The MDRD study equat ion has not been valid ated for the evalu ation of serum creat inine relat ed to nutri kellie l statu s or medic ation usage . For perso ns <18 years of age, a pedia tric GFR calcu lator is avail able on the F websi te: https ://akila w.sophie gardner.o rg/pr ofess ional s/kdo qi/gf r_cal culat or Not Available [facility] (Lab) [address] [place], [address], 06/16/2023 20:30:10 06/15/19 24 06/16/2023 COMPR EHENS MISTY METAB OLIC PANEL alkaline phosphatase 152 U/L 38-126 high Not Available [facility] (Lab) [address] [place], [address], 06/16/2023 20:30:10 06/15/19 24 06/16/2023 COMPR EHENS MISTY METAB OLIC PANEL alanine aminotransfe rase 23 U/L 0-35 Not Available [facility] (Lab) [address] [place], [address], 06/16/2023 20:30:10 06/15/19 24 06/16/2023 COMPR EHENS MISTY METAB OLIC PANEL aspartate aminotransfe rase 41 U/L 15-37 high Not Available [facility] (Lab) [address] [place], [address], 06/16/2023 20:30:10 06/15/19 24 06/16/2023 COMPR EHENS MISTY METAB OLIC PANEL bilirubin, total 0.70 mg/dL 0.20-1 .30 Not Available [facility] (Lab) [address] [place], [address], 06/16/2023 20:30:10 06/15/19 24 06/16/2023 COMPR EHENS MISTY METAB OLIC PANEL calcium 9.4 mg/dL 8.4-10 .2 Not Available [facility] (Lab) [address] [place], [address], 06/16/2023 20:30:10 06/15/19 24 06/16/2023 COMPR EHENS MISTY METAB OLIC PANEL total protein 6.9 g/dL 6.3-8. 2 Not Available [facility] (Lab) [address] [place], [address], 06/16/2023 20:30:10 06/15/19 24 06/16/2023 COMPR EHENS MISTY METAB OLIC PANEL albumin 3.4 g/dL 3.4-5. 0 Not Available [facility] (Lab) [address] [place], [address], 06/16/2023 20:30:10 06/15/19 24 06/16/2023 COMPR EHENS MISTY METAB OLIC PANEL globulin 3.5 g/dL 2.6-4. 2 Not Available [facility] (Lab) [address] [place], [address], 06/16/2023 20:30:10 06/15/19 24 06/16/2023 COMPR EHENS MISTY METAB OLIC PANEL A/G ratio 1.0 ratio 1.0-2. 0 Not Available [facility] (Lab) [address] [place], [address], 06/16/2023 20:30:10 06/15/19 24 06/16/2023 LIPAS E SERUM lipase 71 U/L 23-300 Not Available [facility] (Lab) [address] [place], [address], 06/16/2023 20:30:13 06/15/19 24 06/16/2023 AMYLA SE SERUM amylase 43 U/L 30-110 Not Available [facility] (Lab) [address] [place], [address], 06/16/2023 20:30:18 06/15/19 24 06/17/2023 CBC/C OMPLE TE BLD COUNT W/DIF F white blood cells 8.5 x10'3 /uL 4.2-10 .8 Not Available [facility] (Lab) [address] [place], [address], 06/17/2023 14:28:49 06/15/19 24 06/17/2023 CBC/C OMPLE TE BLD COUNT W/DIF F red blood cells 3.94 x10'6 /uL 3.80-5 .20 Not Available [facility] (Lab) [address] [place], [address], 06/17/2023 14:28:49 06/15/19 24 06/17/2023 CBC/C OMPLE TE BLD COUNT W/DIF F hemoglobin 14.2 g/dL 12.0-1 5.6 Not Available [facility] (Lab) [address] [place], [address], 06/17/2023 14:28:49 06/15/19 24 06/17/2023 CBC/C OMPLE TE BLD COUNT W/DIF F hematocrit 42.1 % 35.7-4 5.7 Not Available [facility] (Lab) [address] [place], [address], 06/17/2023 14:28:49 06/15/19 24 06/17/2023 CBC/C OMPLE TE BLD COUNT W/DIF F mean red cell volume 106.9 fL 82.0-9 9.0 high Not Available [facility] (Lab) [address] [place], [address], 06/17/2023 14:28:49 06/15/19 24 06/17/2023 CBC/C OMPLE TE BLD COUNT W/DIF F mean red cell hemoglobin 36.0 pg 27.0-3 3.0 high Not Available [facility] (Lab) [address] [place], [address], 06/17/2023 14:28:49 06/15/19 24 06/17/2023 CBC/C OMPLE TE BLD COUNT W/DIF F mean RBC HGB concentratio n 33.7 g/dL 31.0-3 6.0 Not Available [facility] (Lab) [address] [place], [address], 06/17/2023 14:28:49 06/15/19 24 06/17/2023 CBC/C OMPLE TE BLD COUNT W/DIF F red cell distribution width 12.9 % 11.8-1 5.5 Not Available [facility] (Lab) [address] [place], [address], 06/17/2023 14:28:49 06/15/19 24 06/17/2023 CBC/C OMPLE TE BLD COUNT W/DIF F platelets 272 x10'3 /uL 150-40 0 Not Available [facility] (Lab) [address] [place], [address], 06/17/2023 14:28:49 06/15/19 24 06/17/2023 CBC/C OMPLE TE BLD COUNT W/DIF F mean platelet volume 11.1 fL 9.0-12 .4 Not Available [facility] (Lab) [address] [place], [address], 06/17/2023 14:28:49 06/15/19 24 06/17/2023 CBC/C OMPLE TE BLD COUNT W/DIF F neutrophils 69.5 % 39.0-7 2.0 Not Available [facility] (Lab) [address] [place], [address], 06/17/2023 14:28:49 06/15/19 24 06/17/2023 CBC/C OMPLE TE BLD COUNT W/DIF F lymphocytes 17.0 % 16.0-4 7.0 Not Available [facility] (Lab) [address] [place], [address], 06/17/2023 14:28:49 06/15/1906/17/2023 CBC/C OMPLE TE BLD COUNT W/DIF F monocytes 10.1 % 5.0-12 .0 Not Available [facility] (Lab) [address] [place], [address], 06/17/2023 14:28:49 06/15/19 24 06/17/2023 CBC/C OMPLE TE BLD COUNT W/DIF F eosinophils 2.7 % 1.0-7. 0 Not Available [facility] (Lab) [address] [place], [address], 06/17/2023 14:28:49 06/15/19 24 06/17/2023 CBC/C OMPLE TE BLD COUNT W/DIF F basophils 0.5 % 0.0-2. 0 Not Available [facility] (Lab) [address] [place], [address], 06/17/2023 14:28:49 06/15/1906/17/2023 CBC/C OMPLE TE BLD COUNT W/DIF F immature granulocytes 0.2 % 0.00-0 .50 Not Available [facility] (Lab) [address] [place], [address], 06/17/2023 14:28:49 06/15/19 24 06/17/2023 CBC/C OMPLE TE BLD COUNT W/DIF F neutrophils, absolute count 5.92 x10'3 /uL 1.5-8. 0 Not Available [facility] (Lab) [address] [place], [address], 06/17/2023 14:28:49 06/15/19 24 06/17/2023 CBC/C OMPLE TE BLD COUNT W/DIF F lymphocytes, absolute count 1.45 x10'3 /uL 1.07-3 .43 Not Available [facility] (Lab) [address] [place], [address], 06/17/2023 14:28:49 06/15/19 24 06/17/2023 CBC/C OMPLE TE BLD COUNT W/DIF F monocytes, absolute count 0.86 x10'3 /uL 0.29-0 .99 Not Available [facility] (Lab) [address] [place], [address], 06/17/2023 14:28:49 06/15/19 24 06/17/2023 CBC/C OMPLE TE BLD COUNT W/DIF F eosinophils, absolute count 0.23 x10'3 /uL 0.02-0 .53 Not Available [facility] (Lab) [address] [place], [address], 06/17/2023 14:28:49 06/15/19 24 06/17/2023 CBC/C OMPLE TE BLD COUNT W/DIF F basophils, absolute count 0.04 x10'3 /uL 0.01-0 .08 Not Available [facility] (Lab) [address] [place], [address], 06/17/2023 14:28:49 06/15/19 24 06/17/2023 CBC/C OMPLE TE BLD COUNT W/DIF F immature granulocytes ,absolute 0.02 x10'3 /uL 0.00-0 .05 Not Available [facility] (Lab) [address] [place], [address], 06/17/2023 14:28:49 06/15/19 24 06/17/2023 CBC/C OMPLE TE BLD COUNT W/DIF F nucleated red blood cells 0.0 % -0 Not Available [facility] (Lab) [address] [place], [address], 06/17/2023 14:28:49 06/15/19 24 06/17/2023 CBC/C OMPLE TE BLD COUNT W/DIF F NRBC# 0.00 x10'3 /uL Not Available [facility] (Lab) [address] [place], [address], 06/17/2023 14:28:49 06/15/19 24 06/17/2023 CBC/C OMPLE TE BLD COUNT W/DIF F macro OCCASI ONAL Not Available [facility] (Lab) [address] [place], [address], 06/17/2023 14:28:49 06/16/19 24 06/16/2023 CBC/C OMPLE TE BLD COUNT W/DIF F white blood cells 8.4 x10'3 /uL 4.2-10 .8 Not Available [facility] (Lab) [address] [place], [address], 06/16/2023 19:33:05 06/16/19 24 06/16/2023 CBC/C OMPLE TE BLD COUNT W/DIF F red blood cells 3.93 x10'6 /uL 3.80-5 .20 Not Available [facility] (Lab) [address] [place], [address], 06/16/2023 19:33:05 06/16/19 24 06/16/2023 CBC/C OMPLE TE BLD COUNT W/DIF F hemoglobin 14.2 g/dL 12.0-1 5.6 Not Available [facility] (Lab) [address] [place], [address], 06/16/2023 19:33:05 06/16/1906/16/2023 CBC/C OMPLE TE BLD COUNT W/DIF F hematocrit 41.9 % 35.7-4 5.7 Not Available [facility] (Lab) [address] [place], [address], 06/16/2023 19:33:05 06/16/1906/16/2023 CBC/C OMPLE TE BLD COUNT W/DIF F mean red cell volume 106.6 fL 82.0-9 9.0 high Not Available [facility] (Lab) [address] [place], [address], 06/16/2023 19:33:05 06/16/19 24 06/16/2023 CBC/C OMPLE TE BLD COUNT W/DIF F mean red cell hemoglobin 36.1 pg 27.0-3 3.0 high Not Available [facility] (Lab) [address] [place], [address], 06/16/2023 19:33:05 06/16/19 24 06/16/2023 CBC/C OMPLE TE BLD COUNT W/DIF F mean RBC HGB concentratio n 33.9 g/dL 31.0-3 6.0 Not Available [facility] (Lab) [address] [facility], [place], [address], 06/16/2023 19:33:05 06/16/19 24 06/16/2023 CBC/C OMPLE TE BLD COUNT W/DIF F red cell distribution width 13.0 % 11.8-1 5.5 Not Available [facility] (Lab) [address] [place], [address], 06/16/2023 19:33:05 06/16/19 24 06/16/2023 CBC/C OMPLE TE BLD COUNT W/DIF F platelets 277 x10'3 /uL 150-40 0 Not Available [facility] (Lab) [address] [place], [address], 06/16/2023 19:33:05 06/16/19 24 06/16/2023 CBC/C OMPLE TE BLD COUNT W/DIF F mean platelet volume 10.9 fL 9.0-12 .4 Not Available [facility] (Lab) [address] [place], [address], 06/16/2023 19:33:05 06/16/19 24 06/16/2023 CBC/C OMPLE TE BLD COUNT W/DIF F neutrophils 70.6 % 39.0-7 2.0 Not Available [facility] (Lab) [address] [place], [address], 06/16/2023 19:33:05 06/16/19 24 06/16/2023 CBC/C OMPLE TE BLD COUNT W/DIF F lymphocytes 16.6 % 16.0-4 7.0 Not Available [facility] (Lab) [address] [place], [address], 06/16/2023 19:33:05 06/16/19 24 06/16/2023 CBC/C OMPLE TE BLD COUNT W/DIF F monocytes 9.4 % 5.0-12 .0 Not Available [facility] (Lab) [address] [place], [address], 06/16/2023 19:33:05 06/16/19 24 06/16/2023 CBC/C OMPLE TE BLD COUNT W/DIF F eosinophils 2.6 % 1.0-7. 0 Not Available [facility] (Lab) [address] [place], [address], 06/16/2023 19:33:06/16/19 24 06/16/2023 CBC/C OMPLE TE BLD COUNT W/DIF F basophils 0.6 % 0.0-2. 0 Not Available [facility] (Lab) [address] [place], [address], 06/16/2023 19:33:05 06/16/19 24 06/16/2023 CBC/C OMPLE TE BLD COUNT W/DIF F immature granulocytes 0.2 % 0.00-0 .50 Not Available [facility] (Lab) [address] [place], [address], 06/16/2023 19:33:05 06/16/19 24 06/16/2023 CBC/C OMPLE TE BLD COUNT W/DIF F neutrophils, absolute count 5.92 x10'3 /uL 1.5-8. 0 Not Available [facility] (Lab) [address] [place], [address], 06/16/2023 19:33:05 06/16/19 24 06/16/2023 CBC/C OMPLE TE BLD COUNT W/DIF F lymphocytes, absolute count 1.39 x10'3 /uL 1.07-3 .43 Not Available [facility] (Lab) [address] [place], [address], 06/16/2023 19:33:05 06/16/19 24 06/16/2023 CBC/C OMPLE TE BLD COUNT W/DIF F monocytes, absolute count 0.79 x10'3 /uL 0.29-0 .99 Not Available [facility] (Lab) [address] [place], [address], 06/16/2023 19:33:05 06/16/1906/16/2023 CBC/C OMPLE TE BLD COUNT W/DIF F eosinophils, absolute count 0.22 x10'3 /uL 0.02-0 .53 Not Available [facility] (Lab) [address] [place], [address], 06/16/2023 19:33:05 06/16/19 24 06/16/2023 CBC/C OMPLE TE BLD COUNT W/DIF F basophils, absolute count 0.05 x10'3 /uL 0.01-0 .08 Not Available [facility] (Lab) [address] [place], [address], 06/16/2023 19:33:05 06/16/19 24 06/16/2023 CBC/C OMPLE TE BLD COUNT W/DIF F immature granulocytes ,absolute 0.02 x10'3 /uL 0.00-0 .05 Not Available [facility] (Lab) [address] [place], [address], 06/16/2023 19:33:05 06/16/19 24 06/16/2023 CBC/C OMPLE TE BLD COUNT W/DIF F nucleated red blood cells 0.0 % -0 Not Available [facility] (Lab) [address] [place], [address], 06/16/2023 19:33:05 06/16/19 24 06/16/2023 CBC/C OMPLE TE BLD COUNT W/DIF F NRBC# 0.00 x10'3 /uL Not Available [facility] (Lab) [address] [place], [address], 06/16/2023 19:33:05 06/16/19 24 06/16/2023 TEST NOT PERFO RMED test not performed SEE COMMEN T URINE ASHLY D IN BAG. UNABL E TO PERFO RM URINA LYSIS COMPL ETE Not Available [facility] (Lab) [address] [place], [address], 06/16/2023 20:31:39 08/24/19 24 08/24/2023 URINA LYSIS COMPL ETE/I RIS W/RFX color YELLOW Not Available [facility] (Lab) [address] [place], [address], 08/24/2023 20:56:11 08/24/19 24 08/24/2023 URINA LYSIS COMPL ETE/I RIS W/RFX appear EXTRA TURBID abnormal Not Available [facility] (Lab) [address] [place], [address], 08/24/2023 20:56:11 08/24/19 24 08/24/2023 URINA LYSIS COMPL ETE/I RIS W/RFX specific gravity 1.023 1.001- 1.030 Not Available [facility] (Lab) [address] [place], [address], 08/24/2023 20:56:11 08/24/19 24 08/24/2023 URINA LYSIS COMPL ETE/I RIS W/RFX pH 5.5 pH_un its 5.0-9. 0 Not Available [facility] (Lab) [address] [place], [address], 08/24/2023 20:56:11 08/24/19 24 08/24/2023 URINA LYSIS COMPL ETE/I RIS W/RFX leukocytes NEGATI VE macie/u L negati ve- Not Available [facility] (Lab) [address] [place], [address], 08/24/2023 20:56:11 08/24/19 24 08/24/2023 URINA LYSIS COMPL ETE/I RIS W/RFX nitrite NEGATI VE negati ve- Not Available [facility] (Lab) [address] [place], [address], 08/24/2023 20:56:11 08/24/19 24 08/24/2023 URINA LYSIS COMPL ETE/I RIS W/RFX protein 20 mg/dL negati ve- abnormal Not Available [facility] (Lab) [address] [place], [address], 08/24/2023 20:56:11 08/24/19 24 08/24/2023 URINA LYSIS COMPL ETE/I RIS W/RFX glucose NORMAL mg/dL normal - Not Available [facility] (Lab) [address] [place], [address], 08/24/2023 20:56:11 08/24/19 24 08/24/2023 URINA LYSIS COMPL ETE/I RIS W/RFX ketones NEGATI VE mg/dL negati ve- Not Available [facility] (Lab) [address] [place], [address], 08/24/2023 20:56:11 08/24/19 24 08/24/2023 URINA LYSIS COMPL ETE/I RIS W/RFX urobilinogen NORMAL mg/dL normal - Not Available [facility] (Lab) [address] [place], [address], 08/24/2023 20:56:11 08/24/19 24 08/24/2023 URINA LYSIS COMPL ETE/I RIS W/RFX bilirubin NEGATI VE mg/dL negati ve- Not Available [facility] (Lab) [address] [place], [address], 08/24/2023 20:56:11 08/24/19 24 08/24/2023 URINA LYSIS COMPL ETE/I RIS W/RFX blood NEGATI VE mg/dL negati ve- Not Available [facility] (Lab) [address] [place], [address], 08/24/2023 20:56:11 08/24/19 24 08/24/2023 URINA LYSIS COMPL ETE/I RIS W/RFX white blood cells NONE /i??h pfi?? 0-8 Not Available [facility] (Lab) [address] [place], [address], 08/24/2023 20:56:11 08/24/19 24 08/24/2023 URINA LYSIS COMPL ETE/I RIS W/RFX red blood cells NONE /i??h pfi?? 0-4 Not Available [facility] (Lab) [address] [place], [address], 08/24/2023 20:56:11 08/24/19 24 08/24/2023 URINA LYSIS COMPL ETE/I RIS W/RFX bacteria NONE Not Available [facility] (Lab) [address] [place], [address], 08/24/2023 20:56:11 08/24/19 24 08/24/2023 URINA LYSIS COMPL ETE/I RIS W/RFX mucous OCCASI ONAL /i??l pfi?? abnormal Not Available [facility] (Lab) [address] [place], [address], 08/24/2023 20:56:11 08/24/19 24 08/24/2023 URINA LYSIS COMPL ETE/I RIS W/RFX squamous epithelial NONE /i??l pfi?? Not Available [facility] (Lab) [address], [place], [address], 08/24/2023 20:56:11 08/24/19 24 08/24/2023 URINA LYSIS COMPL ETE/I RIS W/RFX amorphous crystal MANY /i??h pfi?? abnormal Not Available [facility] (Lab) [address], [place], [address], 08/24/2023 20:56:11 08/24/19 24 08/24/2023 urina lysis , dipst ick Leukocytes (reference range: negative macie/ l) Negati ve Not Available [facility] Internal [facility] [address] [place], [address], 08/24/2023 12:09:27 08/24/19 24 08/24/2023 urina lysis , dipst ick Nitrite (reference rage: negative mg/dl) negati ve Not Available [facility] Internal [facility] [address] [place], [address], 08/24/2023 12:09:27 08/24/19 24 08/24/2023 urina lysis , dipst ick Urobilinogen (reference range: 0.2-1 mg/dl) 0.2 Not Available [facility] Internal [facility] [address] [place], [address], 08/24/2023 12:09:27 08/24/19 24 08/24/2023 urina lysis , dipst ick Protein (reference range: negative mg/dl) Modera te Not Available [facility] Internal [facility] [address] [place], [address], 08/24/2023 12:09:27 08/24/19 24 08/24/2023 urina lysis , dipst ick pH (reference range: 5-7) 5.5 Not Available [facility] [address] [place], [address], 08/24/2023 12:09:27 08/24/19 24 08/24/2023 urina lysis , dipst ick Blood (reference range: negative Nick/ l) Negati ve Not Available [facility] [address] [place], [address], 08/24/2023 12:09:27 08/24/19 24 08/24/2023 urina lysis , dipst ick Specific Stringer (reference range: 1.005-1.030) 1.030 Not Available [facility] [address] [place], [address], 08/24/2023 12:09:27 08/24/19 24 08/24/2023 urina lysis , dipst ick Ketone (reference range: negative mg/dl) Trace Not Available [facility] [address] [place], [address], 08/24/2023 12:09:27 08/24/19 24 08/24/2023 urina lysis , dipst ick Bilirubin (reference range: negative mg/dl) Small Not Available [facility] [address] [place], [address], 08/24/2023 12:09:27 08/24/19 24 08/24/2023 urina lysis , dipst ick Glucose (reference range: negative mg/dl) Negati ve Not Available [facility] [address] [place], [address], 08/24/2023 12:09:27 08/24/19 24 08/24/2023 urina lysis , dipst ick Appearance Clear Not Available [facility] [address] [place], [address], 08/24/2023 12:09:27 08/24/1908/24/2023 urina lysis , dipst ick Color Dark Yellow Not Available [facility] [address] [place], [address], 08/24/2023 12:09:27 03/21/2003/21/2024 TEST NOT PERFO RMED test not performed NO SPECIM EN REC Not Available [facility] (Lab) [address] [place], [address], 03/21/2024 20:29:12 03/21/20 24 03/21/2024 COMPR EHENS MISTY METAB OLIC PANEL sodium 132 mmol/ L 137-14 5 low Not Available [facility] (Lab) [address] [place], [address], 03/21/2024 20:29:14 03/21/2003/21/2024 COMPR EHENS MISTY METAB OLIC PANEL potassium 5.7 mmol/ L 3.5-5. 1 high Not Available [facility] (Lab) [address] [place], [address], 03/21/2024 20:29:14 03/21/2003/21/2024 COMPR EHENS MISTY METAB OLIC PANEL chloride 102 mmol/ L 98-107 Not Available [facility] (Lab) [address] [place], [address], 03/21/2024 20:29:14 03/21/2003/21/2024 COMPR EHENS MISTY METAB OLIC PANEL carbon dioxide 18 mmol/ L 22-30 low Not Available [facility] (Lab) [address] [place], [address], 03/21/2024 20:29:14 03/21/20 24 03/21/2024 COMPR EHENS MISTY METAB OLIC PANEL anion gap 17.7 mmol/ L 14- Not Available [facility] (Lab) [address] [place], [address], 03/21/2024 20:29:14 03/21/20 24 03/21/2024 COMPR EHENS MISTY METAB OLIC PANEL glucose 83 mg/dL 70-99 Not Available [facility] (Lab) [address] [place], [address], 03/21/2024 20:29:14 03/21/2003/21/2024 COMPR EHENS MISTY METAB OLIC PANEL BUN 25 mg/dL 8-19 high Not Available [facility] (Lab) [address] [place], [address], 03/21/2024 20:29:14 03/21/20 24 03/21/2024 COMPR EHENS MISTY METAB OLIC PANEL creatinine 0.98 mg/dL 0.66-1 .25 Not Available [facility] (Lab) [address] [place], [address], 03/21/2024 20:29:14 03/21/20 24 03/21/2024 COMPR EHENS MISTY METAB OLIC PANEL GFR 60 Refer ence Range : Stuart ge GFR Healt hy Adult : >60 mL/mi n/1.7 3 m2 Chron ic Kidne y Disea se: 15-60 mL/mi n/1.7 3 m2 Kidne y Failu re: <15/m L/min /1.73 m2 www.n iddk. nih.g ov The MDRD study equat ion has not been valid ated in child kervin <18 years of age; pregn ant women ; the elder ly >85 years of age; or in some racia l or ethni c subgr oups, such as Hispa nics. Outsi de the valid ated blas eters , estim ated GFR is less accur ate, requi ring clini lenin judgm ent on a case- by-ca se basis . Clini lenin inter preta tion for other races and ages must be made by the clini barry. The MDRD study equat ion has not been valid ated for the evalu ation of serum creat inine relat ed to nutri kellie l statu s or medic ation usage . For perso ns <18 years of age, a pedia tric GFR calcu lator is avail able on the [facility] websi te: https ://ww w.kid kendra.o rg/pr ofess ional s/kdo qi/gf r_cal culat or Not Available [facility] (Lab) [address] [place], [address], 03/21/2024 20:29:14 03/21/2003/21/2024 COMPR EHENS MISTY METAB OLIC PANEL alkaline phosphatase 207 U/L 38-126 high Not Available [facility] (Lab) [address] [place], [address], 03/21/2024 20:29:14 03/21/20 24 03/21/2024 COMPR EHENS MISTY METAB OLIC PANEL alanine aminotransfe rase 22 U/L 0-35 Not Available [facility] (Lab) [address] [place], [address], 03/21/2024 20:29:14 03/21/20 24 03/21/2024 COMPR EHENS MISTY METAB OLIC PANEL aspartate aminotransfe rase 35 U/L 15-37 Not Available [facility] (Lab) [address] [place], [address], 03/21/2024 20:29:14 03/21/20 24 03/21/2024 COMPR EHENS MISTY METAB OLIC PANEL bilirubin, total 0.90 mg/dL 0.20-1 .30 Not Available [facility] (Lab) [address] [place], [address], 03/21/2024 20:29:14 03/21/20 24 03/21/2024 COMPR EHENS MISTY METAB OLIC PANEL calcium 10.4 mg/dL 8.4-10 .2 high Not Available [facility] (Lab) [address] [place], [address], 03/21/2024 20:29:14 03/21/20 24 03/21/2024 COMPR EHENS MISTY METAB OLIC PANEL total protein 7.3 g/dL 6.3-8. 2 Not Available [facility] (Lab) [address] [place], [address], 03/21/2024 20:29:14 03/21/20 24 03/21/2024 COMPR EHENS MISTY METAB OLIC PANEL albumin 3.8 g/dL 3.4-5. 0 Not Available [facility] (Lab) [address] [place], [address], 03/21/2024 20:29:14 03/21/20 24 03/21/2024 COMPR EHENS MISTY METAB OLIC PANEL globulin 3.5 g/dL 2.6-4. 2 Not Available [facility] (Lab) [address] [place], [address], 03/21/2024 20:29:14 03/21/20 24 03/21/2024 COMPR EHENS MISTY METAB OLIC PANEL A/G ratio 1.1 ratio 1.0-2. 0 Not Available [facility] (Lab) [address] [place], [address], 03/21/2024 20:29:14 03/21/20 24 03/21/2024 VITAM IN D 25-HY DROXY vd25oh <12.8 NG/mL 30-100 low Vitam in D Statu s: Defic ient: <20 ng/mL Insuf ficie nt: 20-29 ng/mL Suffi cient : 30-10 0 ng/mL Not Available [facility] (Lab) [address] [place], [address], 03/21/2024 20:30:18 03/21/20 24 03/21/2024 VITAM IN B12 (AMINATA GREGORY ) vb12 286 pg/mL 239-93 1 Not Available [facility] (Lab) [address] [place], [address], 03/21/2024 20:30:33 03/21/20 24 03/21/2024 TSH thyroid-stim ulating hormone 2.670 uIU/m L 0.465- 4.680 Not Available [facility] (Lab) [address] [place], [address], 03/21/2024 20:32:24 04/28/20 24 04/28/2024 BASIC METAB OLIC PANEL sodium 135 mmol/ L 137-14 5 low Not Available [facility] (Lab) [address] [place], [address], 04/28/2024 19:57:05 04/28/20 24 04/28/2024 BASIC METAB OLIC PANEL potassium 4.3 mmol/ L 3.5-5. 1 Not Available [facility] (Lab) [address] [place], [address], 04/28/2024 19:57:05 04/28/20 24 04/28/2024 BASIC METAB OLIC PANEL chloride 103 mmol/ L 98-107 Not Available [facility] (Lab) [address] [place], [address], 04/28/2024 19:57:05 04/28/20 24 04/28/2024 BASIC METAB OLIC PANEL carbon dioxide 24 mmol/ L 22-30 Not Available [facility] (Lab) [address] [place], [address], 04/28/2024 19:57:05 04/28/20 24 04/28/2024 BASIC METAB OLIC PANEL anion gap 12.3 mmol/ L 14-22 low Not Available [facility] (Lab) [address] [place], [address], 04/28/2024 19:57:05 04/28/20 24 04/28/2024 BASIC METAB OLIC PANEL glucose 93 mg/dL 70-99 Not Available [facility] (Lab) [address] [place], [address], 04/28/2024 19:57:05 04/28/20 24 04/28/2024 BASIC METAB OLIC PANEL BUN 23 mg/dL 8-19 high Not Available [facility] (Lab) [address] [place], [address], 04/28/2024 19:57:05 04/28/20 24 04/28/2024 BASIC METAB OLIC PANEL creatinine 0.72 mg/dL 0.66-1 .25 Not Available [facility] (Lab) [address] [place], [address], 04/28/2024 19:57:05 04/28/20 24 04/28/2024 BASIC METAB OLIC PANEL GFR >60 Refer ence Range : Stuart ge GFR Healt hy Adult : >60 mL/mi n/1.7 3 m2 Chron ic Kidne y Disea se: 15-60 mL/mi n/1.7 3 m2 Kidne y Failu re: <15/m L/min /1.73 m2 www.n iddk. nih.g ov The MDRD study equat ion has not been valid ated in child kervin <18 years of age; pregn ant women ; the elder ly >85 years of age; or in some racia l or ethni c subgr oups, such as Hispa nics. Outsi de the valid ated blas eters , estim ated GFR is less accur ate, requi ring clini lenin judgm ent on a case- by-ca se basis . Clini lenin inter preta tion for other races and ages must be made by the clini barry. The MDRD study equat ion has not been valid ated for the evalu ation of serum creat inine relat ed to nutri kellie l statu s or medic ation usage . For perso ns <18 years of age, a pedia tric GFR lourdesu dalila is avail able on the [facility] websi te: https ://akila w.sophie kendra.o rg/pr ofess ional s/kdo qi/gf r_cal culat or Not Available [facility] (Lab) [address] [place], [address], 04/28/2024 19:57:05 04/28/20 24 04/28/2024 BASIC METAB OLIC PANEL calcium 9.7 mg/dL 8.4-10 .2 Not Available [facility] (Lab) [address] [place], [address], 04/28/2024 19:57:05 04/28/20 24 04/28/2024 LIPID PANEL cholesterol 177 mg/dL 140-19 9 NIH RACHEL NSUS RECOM MENDA TION FOR NORBERTO STERO L: ADULT CHILD LOW RISK: <200 <170 BORDE RLINE : <200- 239 ----- HIGH RISK: >240 >200 Not Available [facility] (Lab) [address] [place], [address], 04/28/2024 19:59:01 04/28/20 24 04/28/2024 LIPID PANEL triglyceride s 215 mg/dL 0-150 high NIH RACHEL NSUS REPOR T RECOM MENDA TION FOR TRIGL YCERI MARY: ADULT CHILD LOW RISK: <150 ----- BODER LINE: 150-1 99 ----- HIGH RISK: >200 ----- Not Available [facility] (Lab) [address] [place], [address], 04/28/2024 19:59:01 04/28/20 24 04/28/2024 LIPID PANEL HDL cholesterol 56 mg/dL 40- Not Available [facility] (Lab) [address] [place], [address], 04/28/2024 19:59:01 04/28/20 24 04/28/2024 LIPID PANEL LDL cholesterol, calculated 78 mg/dL 0-130 NIH RACHEL NSUS REPOR T RECOM MENDA TIONS FOR LDL: ADULT CHILD LOW RISK <130 <110 (OPTI MAL LDL) <100 ----- BORDE RLINE : 130-1 59 ----- HIGH RISK: >160 >130 A TRIGL YCERI DE RESUL T >400 INVAL IDATE S THE CALCU LATIO N FOR LDL FRACT IONAT ION - THE LDL RESUL T WILL NOT BE REPOR CATHERINE. Not Available [facility] (Lab) [address] [facility], [place], [address], 04/28/2024 19:59:01 10/07/19 25 10/06/2024 urina lysis , dipst ick Leukocytes (reference range: negative macie/ l) Large Not Available [facility] Internal [place] [address] [facility] [place], [address], 10/06/2024 10:19:44 10/07/19 25 10/06/2024 urina lysis , dipst ick Nitrite (reference rage: negative mg/dl) negati ve Not Available [facility] [address] [place], [address], 10/06/2024 10:19:44 10/07/19 25 10/06/2024 urina lysis , dipst ick Urobilinogen (reference range: 0.2-1 mg/dl) 0.2 Not Available [facility] Internal [facility] [address] [place], [address], 10/06/2024 10:19:44 10/07/19 25 10/06/2024 urina lysis , dipst ick Protein (reference range: negative mg/dl) Negati ve Not Available [facility] Internal [facility] [address] [facility] [place], [address], 10/06/2024 10:19:44 10/07/19 25 10/06/2024 urina lysis , dipst ick pH (reference range: 5-7) 5.5 Not Available [facility] [address] [place], [address], 10/06/2024 10:19:44 10/07/19 25 10/06/2024 urina lysis , dipst ick Blood (reference range: negative Nick/ l) Negati ve Not Available [facility] [address] [place], [address], 10/06/2024 10:19:44 10/07/19 25 10/06/2024 urina lysis , dipst ick Specific Stringer (reference range: 1.005-1.030) 1.020 Not Available [facility] [address] [place], [address], 10/06/2024 10:19:44 10/07/19 25 10/06/2024 urina lysis , dipst ick Ketone (reference range: negative mg/dl) Negati ve Not Available [facility] [address] [place], [address], 10/06/2024 10:19:44 10/07/19 25 10/06/2024 urina lysis , dipst ick Bilirubin (reference range: negative mg/dl) Negati ve Not Available [place] [address] [place], [address], 10/06/2024 10:19:44 10/07/19 25 10/06/2024 urina lysis , dipst ick Glucose (reference range: negative mg/dl) Negati ve Not Available [place] [address] [place], [address], 10/06/2024 10:19:44 10/07/19 25 10/06/2024 urina lysis , dipst ick Appearance Cloudy Not Available [facility] [address] [place], [address], 10/06/2024 10:19:44 10/07/19 25 10/06/2024 urina lysis , dipst ick Color Yellow Not Available [facility] [address] [place], [address], 10/06/2024 10:19:44 07/13/19 24 07/13/2023 US, pelvi s, trans abdom inal + trans vagin al [facility] [address] [place] [address] Patien t Name: YANIRA BLANC Access ion #: [id number] Sex: F : 1969 1 Dictat ed By: Chante Melendez Attend ing Physic ankush: LETHA DUTTON ER Orderi ng Physic ankush: LETHA DUTTON ER Exam Date: 2023 13:01 PM Exam Name: US PELVIS NON OB TRANSV AGINAL Admitt ing Diagno sis(es ): INDICA TION: Pelvic pain TECHNI QUE: Multip le real-t fady graysc zoran transa bdomin al and transv aginal sonogr aphic images along with color and duplex Dopple r of the uterus and ovarie s were obtain ed. COMPAR KEYLA: No prior for compar keyla. FINDIN GS: The uterus measur es 6.8 x 2.9 x 3.0 cm. The endome trial stripe measur es 0.4 cm. Bilate ral ovarie s are not visual ized due to obscur ation from bowel. IMPRES YOANNA: Normal sonogr aphic appear ance of the uterus . Bilate ral ovarie s not visual ized due to obscur ation from bowel gas. Electr onical ly Signed by: Chante Melendez at 2023 14:51: 06 PM Page 1 [email or web address] [facility] ([facility]) [address] [place], [address], 07/21/2023 11:19:45 03/01/2002/29/2024 fluor oscop y (PROC ) No observ ation record ed. BARCODE Not Available 2023 18:16:23 04/22/2004/20/2024 DEXA, axial skele ton No observ ation record ed. [email or web address] Not Available 2023 11:28:18 Result Notes None recorded. Problems Name Problem SNOMED Code Status Onset Date Resolution Date Notes Provider Name and Address Organization Details Recorded Time Acute bronchit is 09362786 Completed Not Available [facility] 3 15:16:19 Acute sinusiti s 26672802 Active 2021 Not Available [facility] 3 18:02:34 Acute sinusiti s 43030505 Completed 202104/11/2022 Not Available [facility] 3 15:16:19 Backache 015900375 Completed Not Available [facility] 3 15:16:19 Blood chemistr y outside referenc e range 627991962 Completed 202104/17/2022 Not Available [facility] 3 15:16:19 Liver function tests outside referenc e range 526440632 Active 2021 Not Available [facility] 3 18:02:34 Asthma 215476402 Active Not Available [facility] 3 18:02:34 Screenin g mammogra phy Completed 202104/11/2022 Not Available [facility] 3 15:16:20 Urinary symptoms 187820142 Completed 202104/11/2022 Janice Friend , DOCTOR OF NURSING PRACTICE null, [place] [facility] [employer] [facility] 4 12:09:19 Gastroen teritis 67504057 Completed Not Available [facility] 3 15:16:20 Adult health examinat ion Active 2021 Not Available [facility] 3 18:02:34 Chest pain 83450393 Completed Not Available [facility] 3 15:16:20 Finding of body mass index 400689516 Completed 202104/11/2022 Not Available [facility] 3 15:16:21 Hypertri glycerid emia 353288053 Active 2021 Not Available [facility] 3 18:02:34 Divertic ulitis 708166399 Active Not Available [facility] 3 18:02:34 Obesity 185708882 Active has lost lots of weight Not Available [facility] 3 18:02:34 Easy bruising 602694571 Completed 202104/11/2022 Not Available [facility] 3 15:16:21 Hypokale gogo 76711634 Active 2021 Not Available [facility] 3 18:02:34 Pain of left knee joint 11522380799 4107 Active 2021 Not Available [facility] 3 18:02:34 Anxiety 68196993 Active Not Available [facility] 3 18:02:34 Cough 48983358 Completed 202104/11/2022 Not Available [facility] 3 15:16:22 Upper respirat ory infectio n 47386478 Completed Macey Alvarez MA null, [place] [employer] [facility] 5 11:16:08 Hyperlip idemia 23012610 Active 2021 Not Available [facility] 3 18:02:34 Essentia l hyperten yoanna 30025836 Active 2021 Not Available [facility] 3 18:02:34 Diarrhea 19230752 Active Not Available [facility] 3 18:02:35 Pruritic rash 33365897 Active 2022 Not Available [facility] 3 18:02:35 Urinary tract infectio us disease 85138074 Completed Not Available [facility] 3 15:16:23 Acid reflux 603242584 Active 2021 Not Available [facility] 3 18:02:35 Smoker 67398362 Active 2021 Not Available [facility] 3 18:02:35 Neck pain 21087160 Completed Not Available [facility] 3 15:16:23 COVID-19 624560714 Completed 202104/11/2022 Macey Alvarez MA null, [place] [facility] 4 11:39:52 Allergic rhinitis 52153692 Active 2022 Not Available [facility] 3 18:02:34 Vitamin D deficien cy 06362729 Active 2022 Not Available [facility] 3 18:02:34 Gastroes ophageal reflux disease without esophagi tis 081271056 Active 2022 Trinh Siddiqui LPN null, [place] [facility] 3 15:12:40 Pain in pelvis 04183132 Active 2023 Julio C Dutton MD [address], [place], [address] , [facility] 4 10:57:09 Urinary symptoms 868308668 Active 2023 Janice Friend CMA null, [place] [facility] 4 12:09:19 COVID-19 359611461 Active 2023 Macey Alvarez MA null, [place] [facility] 4 11:39:52 Fatigue 00462923 Active 2023 Julio C Dutton MD [address], [place], [address] , [facility] 4 11:06:17 Closed fracture of hip 804459747 Active 2023 Julio C Dutton MD [address], [place], [address] , [facility] 4 11:08:59 Hyperkal emia 95001598 Active 2023 Trinh Siddiqui LPN null, [facility] 4 10:12:10 Continuo us dependen ce on cigarett e smoking 34347035778 4108 Active 2023 Trinh Siddiqui LPN null, [facility] 4 11:29:21 Sinusiti s 78213044 Active 2024 Macey Alvarez MA null, [facility] 5 13:08:08 Upper respirat ory infectio n 86512314 Active 2024 Macey Alvarez MA null, [facility] 5 11:16:08 Increase d frequenc y of urinatio n 931524439 Active 2024 TESSY Calderon null, [facility] 5 10:19:16 Bacteria l urinary infectio n 512115973 Active [address] [facility] [address], [address] , [facility] 5 15:48:41 Tobacco dependen ce caused by cigarett es 48290876049 882414 Active 2024 Julio C Dutton MD [address], [address] , [facility] 5 10:46:30 Body mass index 30+ - obesity 021607042 Active 2024 Julio C Dutton MD [address], [address] , [facility] 5 10:47:10 Notes:Some problems listed i n Document: #[id number] could not be added to this patient's chart. Please review this document and add these problems to the patient's chart manually as needed. Problem Notes None recorded. Procedures Surgical History Date Name Laterality Status Provider Name and Address Organization Details Recorded Time 03/21/20 24 Advanced Care Planning completed Savannah Hilliard RN [facility] 03/21/2024 13:25:12 03/07/20 24 Hip surgery completed Macey Alvarez MA [facility] [employer] [facility] 03/21/2024 10:14:29 reconstruction of anterior cruciate ligament of knee joint completed Not Available [facility] 08/06/2022 15:14:09 Tubal Ligation completed Not Available [facility] 08/06/2022 15:14:09 Imaging Results None recorded. Procedure Notes None recorded. Medical Equipment None Reported. Allergies No known drug allergies Medications Name Sig Start Date Stop Date Status Note LastModified by Organization Details LastModified Time cyclobenz aprine 10 mg tablet Take 1 tablet 3 times a day by oral route as needed. 07/21 completed Not Available Not Available Not Available amoxicill in 500 mg capsule TK 1 C PO TID FOR 7 DAYS 07/21 completed per 06/21/24 patient case / ds Not Available Not Available Not Available prednison e 10 mg tablet active Not Available Not Available Not Available doxycycli ne hyclate 100 mg capsule Take 1 capsule twice a day by oral route for 7 days. 10/08 completed Not Available Not Available Not Available ipratropi um 0.5 mg-albute rol 3 mg (2.5 mg base)/3 mL nebulizat ion soln one in office treatmen t 12/21 completed Not Available Not Available Not Available atorvasta tin 10 mg tablet Take 1 tablet every day by oral route. 07/21 completed Not Available Not Available Not Available lisinopri l 20 mg-hydroc hlorothia zide 12.5 mg tablet TAKE 1 TABLET BY MOUTH EVERY DAY active Not Available Not Available No t Available azithromy disha 250 mg tablet TAKE 2 TABLETS BY MOUTH EVERY DAY FOR 1 DAY THEN TAKE 1 TABLET BY MOUTH EVERY DAY FOR 4 DAYS 08/16 completed Not Available Not Available Not Available aspirin 325 mg tablet Take 1 tablet every day by oral route. 07/21 completed Not Available Not Available Not Available benzonata te 200 mg capsule Take 1 capsule 3 times a day by oral route. active Not Available Not Available No t Available hydrocodo ne 5 mg-acetam inophen 325 mg tablet TAKE 1 TABLET BY MOUTH EVERY 8 HOURS NEEDED FOR PAIN 12/31 completed Not Available Not Available Not Available ondansetr on HCl 4 mg tablet Take 1 tablet every 6 hours by oral route as needed. 04/22 completed Not Available Not Available Not Available prednison e 20 mg tablet 08/23 completed Not Available Not Available Not Available Tubersol 5 tub. unit/0.1 mL intraderm al injection solution Inject 0.5 mL by intrader mal route. 11/13 completed Not Available Not Available Not Available sertralin e 100 mg tablet TAKE 1 TABLET BY MOUTH EVERY DAY active Not Available Not Available No t Available Tylenol Arthritis Pain 650 mg tablet,ex tended release Take 2 tablets every 8 hours by oral route. 06/15 completed Not Available Not Available Not Available metronida zole 500 mg tablet TK 1 T PO BID active Not Available Not Available No t Available ciproflox acin 250 mg tablet TK 1 T PO Q 12 H FOR 5 DAYS 11/13 completed Not Available Not Available Not Available ciproflox acin 500 mg tablet TK 1 T PO BID active Not Available Not Available No t Available sulfameth oxazole 800 mg-trimet hoprim 160 mg tablet TAKE 1 TABLET BY MOUTH TWICE DAILY FOR 7 DAYS 08/16 completed Not Available Not Available Not Available omeprazol e 40 mg capsule,d elayed release TAKE 1 CAPSULE BY MOUTH EVERY DAY active Not Available Not Available No t Available acetamino phen 500 mg tablet TAKE 1 TABLET BY MOUTH EVERY 6 HOURS NEEDED FOR PAIN 11/17 completed Not Available Not Available Not Available triamcino lone acetonide 0.1 % topical cream APPLY THIN LAYER TOPICALL Y TO THE AFFECTED AREA TWICE DAILY 06/15 completed Not Available Not Available Not Available prednison e 10 mg tablets in a dose pack Take 1 tab by mouth, 3 times a day for 3 daysTake 1 tab by mouth 2 times a day for 2 daysTake 1 tab by mouth once a day for 1 day 11/14 completed Not Available Not Available Not Available Macrobid 100 mg capsule Take 1 capsule every 12 hours by oral route for 5 days. 10/17 completed Not Available Not Available Not Available meloxicam 7.5 mg tablet 08/23 completed Not Available Not Available Not Available lorazepam 0.5 mg tablet Take 1 tablet every day by oral route as needed. active Not Available Not Available No t Available aspirin 325 mg tablet,de layed release TAKE 1 TABLET BY MOUTH EVERY 12 HOURS 11/17 completed Not Available Not Available Not Available oxycodone -acetamin ophen 10 mg-325 mg tablet TAKE 1 TABLET BY MOUTH EVERY 6 HOURS NEEDED 11/17 completed Not Available Not Available Not Available dicyclomi ne 20 mg tablet Take 1 tablet 4 times a day by oral route for 30 days. active Not Available Not Available No t Available Kenalog 10 mg/mL suspensio n for injection In office injectio n administ ered by the provider active [facility]: [phone] Not Available Not Available Not Available benzonata te 100 mg capsule TK 1 C PO TID 12/21 completed Not Available Not Available Not Available triamcino lone acetonide 0.1 % topical ointment APPLY A THIN LAYER TO THE AFFECTED AREA(S) BY TOPICAL ROUTE 2 TIMES PER DAY active Not Available Not Available No t Available buspirone 10 mg tablet Take 1 tablet twice a day by oral route as needed. active Not Available Not Available No t Available lisinopri l 10 mg tablet TK 1 T PO QD active Not Available Not Available No t Available nicotine 21 mg/24 hr daily transderm al patch APPLY 1 PATCH TOPICALL Y TO THE SKIN DAILY 11/17 completed Not Available Not Available Not Available hydrochlo rothiazid e 12.5 mg capsule TK ONE C PO QD active Not Available Not Available No t Available Advil 200 mg tablet Take 1 tablet every 6 hours by oral route. 11/17 completed Not Available Not Available Not Available omeprazol e 20 mg capsule,d elayed release TK ONE C PO QD active Not Available Not Available No t Available monteluka st 10 mg tablet TAKE 1 TABLET BY MOUTH EVERY DAY 06/15 completed Not Available Not Available Not Available hydroxyzi ne HCl 25 mg tablet TAKE 1 TABLET BY MOUTH THREE TIMES DAILY 06/15 completed Not Available Not Available Not Available furosemid e 20 mg tablet Take 1 tablet every day by oral route for 14 days. 08/31 completed Not Available Not Available Not Available ergocalci ferol (vitamin D2) 1,250 mcg (50,000 unit) capsule Take 1 capsule every week by oral route. 06/15 completed Not Available Not Available Not Available budesonid e DR - ER 3 mg capsule,d elayed,ex tended release Take 3 capsules every day by oral route in the morning for 30 days. active Not Available Not Available No t Available lisinopri l 10 mg-hydroc hlorothia zide 12.5 mg tablet TAKE 1 TABLET BY MOUTH EVERY MORNING active Not Available Not Available No t Available ibuprofen 600 mg tablet TAKE 1 TABLET BY MOUTH EVERY 6 HOURS NEEDED FOR PAIN active Not Available Not Available No t Available methylpre dnisolone 4 mg tablets in a dose pack FOLLOW PACKAGE DIRECTIO NS 08/16 completed Not Available Not Available Not Available albuterol sulfate HFA 90 mcg/actua tion aerosol inhaler INHALE 2 PUFFS BY MOUTH EVERY 4 HOURS NEEDED 11/17 completed Not Available Not Available Not Available fluticaso ne propionat e 50 mcg/actua tion nasal spray,carlos pension [place] 1 spray twice a day by intranas al route. 07/27 completed Not Available Not Available Not Available sertralin e 50 mg tablet TAKE 1 TABLET BY MOUTH EVERY DAY 11/17 completed Not Available Not Available Not Available dicyclomi ne 10 mg capsule TAKE 1 CAPSULE BY MOUTH THREE TIMES DAILY NEEDED 06/15 completed Not Available Not Available Not Available naproxen 500 mg tablet 11/13 completed Not Available Not Available Not Available amoxicill in 875 mg-potass ium clavulana te 125 mg tablet TAKE 1 TABLET BY MOUTH EVERY 12 HOURS FOR 7 DAYS 10/08 completed Not Available Not Available Not Available hydroxyzi ne pamoate 25 mg capsule TAKE 2 CAPSULES BY MOUTH EVERY 4 HOURS NEEDED FOR ITCHING 11/17 completed Not Available Not Available Not Available azithromy disha 500 mg tablet Take 1 tablet every day by oral route for 5 days. active Not Available Not Available No t Available metaxalon e 800 mg tablet 12/21 completed Not Available Not Available Not Available cyclobenz aprine 5 mg tablet Take 1 tablet every day by oral route at bedtime for 10 days. active Not Available Not Available No t Available Flovent HFA 110 mcg/actua tion aerosol inhaler INHALE 2 PUFFS BY MOUTH TWICE DAILY 07/27 completed Not Available Not Available Not Available chlorhexi dine gluconate 0.12 % mouthwash 12/21 completed Not Available Not Available Not Available oxycodone 10/325 prn 07/21 completed Not Available Not Available Not Available ibuprofen 10/10 completed Not Available Not Available Not Available lidocaine (PF) 10 mg/mL (1 %) injection solution In office injectio n administ ered by the provider active [facility]: [phone] Not Available Not Available Not Available Suprep Bowel Prep Kit 17.5 gram-3.13 gram-1.6 gram oral solution MIX AND DRINK UTD active Not Available Not Available No t Available potassium chloride ER 20 mEq tablet,ex tended release TAKE 1 TABLET BY MOUTH TWICE DAILY 03/23 completed Not Available Not Available Not Available Qvar RediHaler 40 mcg/actua tion HFA breath activated aerosol INHALE 2 PUFFS BY MOUTH TWICE DAILY DIRECTED active Not Available Not Available No t Available Sutab 1.479-0.1 88-0.225 gram tablet USE DIRECTED active Not Available Not Available No t Available Paxlovid 300 mg (150 mg x 2)-100 mg tablets in a dose pack take as directed on prepacka ged rx 03/21 completed per 01/18/24 patient case / ds Not Available Not Available Not Available Airsupra 90 mcg-80 mcg/actua tion HFA aerosol inhaler INHALE 2 PUFFS BY MOUTH EVERY 4 TO 6 HOURS active Not Available Not Available No t Available Zepbound 2.5 mg/0.5 mL subcutane ous pen injector Inject 2.5 mg every week by subcutan eous route. 2024 active Not Available Not Available Not Avai lable Vitals Date Recorded Body height Body mass index (BMI) Body weight Body temperature Heart rate Oxygen saturation Oxygen saturation in Arterial blood by Pulse oximetry Systolic And Diastolic Provider Name and Address Organization Details Last Updated DateTime 4 165.1 cm 31.3 kg/m2 44463.3 7 g 97.9 [degF] 97 /min 98 % 98 % 120/74 mm[Hg] Susana Oshea [facility] [employer] [facility] [employer] [facility] 4 12:04:32 Date Recorded Body height Body mass index (BMI) Body weight Body temperature Oxygen saturation Oxygen saturation in Arterial blood by Pulse oximetry Heart rate Systolic And Diastolic Provider Name and Address Organization Details Last Updated DateTime 5 165.1 cm 33.8 kg/m2 05096.2 5 g 97.6 [degF] 97 % 97 % 90 /min 122/76 mm[Hg] Alana juarez [place] [employer] [facility] [employer] [facility] 5 10:10:07 Date Recorded Body height Body mass index (BMI) Body weight Body temperature Heart rate Oxygen saturation Oxygen saturation in Arterial blood by Pulse oximetry Systolic And Diastolic Provider Name and Address Organization Details Last Updated DateTime 4 165.1 cm 32.3 kg/m2 25393.9 2 g 98.4 [degF] 107 /min 98 % 98 % 128/88 mm[Hg] Janice grady [facility] [employer] [facility] [employer] [facility] 4 11:35:00 Date Recorded Body height Body mass index (BMI) Body weight Body temperature Heart rate Oxygen saturation Oxygen saturation in Arterial blood by Pulse oximetry Systolic And Diastolic Provider Name and Address Organization Details Last Updated DateTime 5 165.1 cm 35.1 kg/m2 45638.9 9 g 97.6 [degF] 87 /min 97 % 97 % 126/72 mm[Hg] Betzaida lara Miko [place] [employer] [facility] [employer] [facility] 5 10:06:04 Date Recorded Body height Body mass index (BMI) Body weight Body temperature Oxygen saturation Oxygen saturation in Arterial blood by Pulse oximetry Heart rate Respiratory rate Systolic And Diastolic Provider Name and Address Organization Details Last Updated DateTime 4 165.1 cm 31.1 kg/m2 73086.7 7 g 97.2 [degF] 99 % 99 % 103 /min 16 /min 124/62 mm[Hg] Macey Alvarez [facility] [employer] [facility] 4 10:09:11 Social History Question Answer Notes LastModified by Organizat ion Details LastModified Time Tobacco Smoking Status Never Smoker quit 02/2024 LAMBERT Soto [place] [employer] [facility] 11/17/2024 12:26:10 Do You Have An Advance Directive? No [id number] Information not available 08/06/2022 Do You Wear A Helmet When Biking? No MIGRATION.[id number] Information not available 08/06/2022 What Is Your Level Of Caffeine Consumption? Moderate MIGRATION.[id number] Information not available 08/06/2022 In The 14 Days Before Symptom Onset, Have You Had Close Contact With A Laboratory-confi rmed COVID-19 While That Case Was Ill? No [id number].[id number] Information not available 08/06/2022 In The 14 Days Before Symptom Onset, Have You Had Close Contact With A Person Who Is Under Investigation For COVID-19 While That Person Was Ill? No [id number].[id number] [id number] Information not available 08/06/2022 What Type Of Diet Are You Following? REGULAR MIGRATION.[id number] Information not available 08/06/2022 What Is The Highest Grade Or Level Of School You Have Completed Or The Highest Degree You Have Received? [id number] MIGRATION.25095 [id number] Information not available 08/06/2022 Have There Been Any Changes To Your Family Or Social Situation? No MIGRATION.46417 [id number] Information not available 08/06/2022 Do You Use Insect Repellent Routinely? No MIGRATION.49444 20527 Information not available 08/06/2022 Where Do You Live? [facility] MIGRATION.94063 [id number] Information not available 08/06/2022 Do You Have A Medical Power Of Spiritual Minister? No MIGRATION.34075 [id number] Information not available 08/06/2022 What Was The Date Of Your Most Recent Tobacco Screening? 12/31/2021 MIGRATION.[id number] [id number] Information not available 08/06/2022 What Is Your Current Pack Years? 20-29packyears MIGRATION.78586 99847 Information not available 08/06/2022 Have You Ever Been Counseled For Unhealthy Alcohol Use? No MIGRATION.56117 19416 Information not available 08/06/2022 Do You Have Any Pets? Yes MIGRATION.55587 52088 Information not available 08/06/2022 What Is Your Relationship Status? MIGRATION.[id number] Information not available 08/06/2022 Do You Use Your Seat Belt Or Car Seat Routinely? Yes MIGRATION.73263 82440 Information not available 08/06/2022 Do You Have Smoke And Carbon Monoxide Detectors In Your Home? Yes MIGRATION.90010 [id number] Information not available 08/06/2022 At What Age Did You Start Smoking Tobacco? 18 MIGRATION.86059 11620 Information not available 08/06/2022 Are You Passively Exposed To Smoke? Yes MIGRATION.34637 39098 Information not available 08/06/2022 Are There Any Smokers In Your House? No MIGRATION.82542 49036 Information not available 08/06/2022 How Much Tobacco Do You Smoke? No Information not available 11/17/2024 Do You Use Sunscreen Routinely? No MIGRATION.74537 12593 Information not available 08/06/2022 Has Tobacco Cessation Counseling Been Provided? Yes MIGRATION.33712 26683 Information not available 08/06/2022 On What Date Was Tobacco Cessation Counseling Provided? 03/21/2024 [email or web address] Information not available 03/21/2024 How Many Years Have You Smoked Tobacco? 37 Information not available 11/17/2024 Have You Recently Traveled Abroad? No MIGRATION.48986 60685 Information not available 08/06/2022 Do You Have Any Dietary Restrictions? No MIGRATION.52886 22444 Information not available 08/06/2022 Sex: Female Functional Status Question Answer Note LastModified by [employer] ion Details LastModified Time Do you use any illicit or recreational drugs? No MIGRATION.[id number] Information not available 08/06/2022 Do you or have you ever used any other forms of tobacco or nicotine? No MIGRATION.[id number] 026 Information not available 08/06/2022 What is your level of alcohol consumption? Moderate 3-4 beers daily MIGRATION.[id number] 026 Information not available 08/06/2022 What is your occupation? [employer] MIGRATION.[id number] 026 Information not available 08/06/2022 What is your exercise level? None MIGRATION.[id number] 026 Information not available 08/06/2022 Mental Status Question Answer Note LastModified by Organizat ion Details LastModified Time Do you feel stressed (tense, restless, nervous, or anxious, or unable to sleep at night)? [id number] [facility].[id number] Information not available 08/06/2022 Family History Nothing Reported. Medical History Condition Response ARTHRITIS Y HYPERTENSION Y Gynecological HistoryNo gynecological history recorded. Obstetrics History GPAL:G 0 P 0 0 0 0 Immunizations Vaccine Type Date Status Note Provider Nam e and Address Organization Details Recorded Time Influenza, split virus, quadrivalent, PF 4 completed Julio C Dutton MD [address] [place] [address], [facility] [address], [place], [address], [facility] [employer] [facility] 06/15/2023 13:16:46 Influenza, split virus, quadrivalent, PF 4 completed Savannah Hilliard RN null, [place] [employer] [facility] [employer] 03/21/2024 13:29:13 SARS-COV-2 (COVID-19) vaccine, UNSPECIFIED 1 completed Janice Friend CMA null, [place] [employer] [facility] [employer] 08/24/2023 11:35:05 Tdap 9 completed Not Available [facility] 12/15/2022 18:02:35 Influenza, split virus, quadrivalent, PF 1 completed Not Available [facility] 12/15/2022 18:02:35 Past Encounters Encounter ID Performer Location Encounter Start Date Encounter Closed Date Diagnosis/Indication Diagnosis SNOMED-CT Code Diagnosis ICD10 Code Diagnosis Note [id number] Julio C Dutton MD [facility] [address] [facility] [place] [address] 08/31/2020 00:00:00 08/31/2020 16:40:50 [id number] Julio C Dutton MD [facility] [address] [facility] [place] [address] 09/10/2020 00:00:00 09/10/2020 11:29:43 [id number] MAEGAN Bojorquez [facility] [address] [place] [address] 09/17/2020 00:00:00 09/17/2020 14:04:43 [id number] _ATHN_MIGR ATION_1 _ATHENA_M IGRATION_ DEFAULT_1 _1 , 11/14/2020 00:00:00 11/14/2020 16:57:15 [id number] Julio C Dutton MD S_[facility] [address] [facility] [place] [address] 02/15/2021 00:00:00 02/15/2021 13:22:43 [id number] MD YUNIOR Ferrari_[facility] [address] [facility] [place] [address] 04/03/2021 00:00:00 04/03/2021 12:00:50 [id number] MD YUNIOR Ferrari[facility] [address] [facility] [place] [address] 04/10/2021 00:00:00 04/10/2021 11:41:30 [id number] MD YUNIOR Ferrari[facility] [address] [facility] [place] [address] 04/24/2021 00:00:00 04/24/2021 13:12:39 [id number] MD YUNIOR Ferrari[facility] [address] [facility] [facility] [place] [address] 07/09/2021 00:00:00 07/09/2021 11:29:36 [id number] MD YUNIOR Ferrari[facility] [address] [facility] [place] [address] 07/23/2021 00:00:00 07/23/2021 09:33:03 [id number] MD YUNIOR [facility] Internal Med [place] [id number] [facility] [place] [address] 12/31/2021 00:00:00 12/31/2021 13:12:40 [id number] MD MATT FerrariS_[facility] Internal [facility] [address] [facility] [facility] [place] [address] 04/18/2022 00:00:00 04/18/2022 09:40:51 [id number] MD YUNIOR [facility] [address] [facility] [place] [address] 06/24/2022 00:00:00 06/24/2022 12:23:11 [id number] Julio C Dutton MD [facility] [place] [facility] [address] [facility] [place] [address] 10/08/2022 10:05:57 10/08/2022 10:55:59 Asthma 759908337 J45.909 much better Acid reflux 467146052 K2 1.9 better with meds Essential hypertension 61236113 I10 under control Anxiety 84339292 F41.9 under control Hypokalemia 24084650 E87 .6 better with meds Pain of le ft knee joint 7135330740 16123 M25.562 improved Smoker 24179988 F17.200 advised to quit Hyperlipidemia 27119489 E78.5 on meds Liver func tion tests outside reference range 138037565 R94.5 follow low fat diet Diarrhea 44339868 R19.7 better with meds Adult heal th examination 882013858 Z00.00 Mammogram- 03/28covid - 11/09/2020 colonoscop y 10/26 Allergic rhinitis 889795 04 J30.9 add montlukast Long-term drug therapy 864645009 Z79.763 [id number] Julio C Dutton MD [facility] [address] [facility] [place] [address] 06/15/2023 10:27:21 06/15/2023 11:12:41 Asthma 909226038 J45.909 under control Essential hypertension 06276265 I10 under control Anxiety 00712471 F41.9 under control Hypokalemia 85596653 E87 .6 better with meds Pain of le ft knee joint 5297443892 94190 M25.562 better Smoker 46481860 F17.200 advised to quit Hyperlipidemia 22441099 E78.5 on meds Liver func tion tests outside reference range 756755709 R94.5 better Diarrhea 82914606 R19.7 better with meds Adult heal th examination 634546743 Z00.00 Mammogram- 03/28covid - 11/09/2020 colonoscop y - 2023 Allergic rhinitis 123576 04 J30.9 add montelukas t Gastroesop hageal reflux disease without esophagitis 380574197 K21.9 Pain in pelvis 22639788 R10.2 Administra tion of influenza vaccine 04015835 Z23 [id number] Julio C Dutton MD [facility] [address] [facility] [place] [address] 08/24/2023 11:12:27 08/24/2023 12:31:42 Urinary symptoms 358533877 R39.9 dipstick is neg, send cxdrink more water [id number] Julio C Dutton MD [facility] [address] [facility] [place] [address] 03/21/2024 09:58:24 03/21/2024 11:39:47 Asthma 244187502 J45.909 under control Essential hypertension 11301933 I10 under control Anxiety 53171909 F41.9 under control Hypokalemia 17941890 E87 .6 better with meds Pain of le ft knee joint 8817828747 96820 M25.562 better Smoker 52788475 F17.200 advised to quit Hyperlipidemia 41077490 E78.5 to restart meds Liver func tion tests outside reference range 383240019 R94.5 better Adult heal th examination 387629905 Z00.00 Mammogram- 03/28covid - 11/09/2020 colonoscop y 10/26Flu- 03/21/2024 Allergic rhinitis 730889 04 J30.9 add montelukas t Gastroesop hageal reflux disease without esophagitis 283397143 K21.9 Administra tion of influenza vaccine 26725118 Z23 Fatigue 55250690 R53.83 Closed fra cture of hip 252384796 S72.001A getting therapy Postmenopausal state 764 85336 Z78.0 Screening mammography 24 927171 Z12.31 Depression screening 171 907799 Z13.31 Normal bod y mass index 70364387 Z68.31 [id number] Julio C Dutton MD [facility] [address] [place] [address] 07/21/2024 09:55:53 07/21/2024 10:54:23 Asthma 500314151 J45.909 change to airsupra Essential hypertension 16781644 I10 under control Anxiety 89592988 F41.9 under control Hypokalemia 83309346 E87 .6 better with meds Pain of le ft knee joint 3403004682 39169 M25.562 better Smoker 72189628 F17.200 advised to quit Hyperlipidemia 01076327 E78.5 on meds Liver func tion tests outside reference range 210727838 R94.5 better Adult heal th examination 542793622 Z00.00 Mammogram- 03/28Dexa- 4covid- 11/09/2020 colonoscop y 10/26Flu- 03/21/2024 Allergic rhinitis 731446 04 J30.9 add montelukas t Gastroesop hageal reflux disease without esophagitis 440591056 K21.9 Fatigue 86404982 R53.83 Closed fra cture of hip 605743039 S72.001A getting therapy Postmenopausal state 764 55804 Z78.0 Screening mammography 24 657025 Z12.31 Depression screening 171 730702 Z13.31 Normal bod y mass index 26391498 Z68.31 [id number] Julio C Dutton MD [facility] [address] [facility] [place] [address] 11/17/2024 09:48:51 11/17/2024 11:07:09 Asthma 922027009 J45.909 change to airsupra Essential hypertension 01132669 I10 under control Anxiety 21611672 F41.9 ^ the dose Hypokalemia 90459073 E87 .6 better with meds Hyperlipidemia 61161045 E78.5 on meds, under control Liver func tion tests outside reference range 147196528 R94.5 better Adult heal th examination 031348121 Z00.00 Mammogram- 03/28 ORDEREDDex a- 4Covid- 11/09/2020 Colonoscop y 10/26Flu- 03/21/2024 Allergic rhinitis 855679 04 J30.9 otc Gastroesop hageal reflux disease without esophagitis 846648579 K21.9 stable Closed fra cture of hip 956321743 S72.001A doing exercises Screening mammography 24 559847 Z12.31 Tobacco de pendence caused by cigarettes 3961842243 0099115 F17.210 Body mass index 30+ - obesity 411183040 E66.9 try zepbound Health Concerns Section Related Observation LastModified by Organization Detai ls LastModified Time None Recorded Concern Status LastModified by Organization Details LastModified Time None Recorded Advance Directives Directive N: Payers Insurance Date Sequence Insurance Name Policy Number Policy Rose Covered Member ID Rose Member ID Guarantor Name 11/17/2024 1 [facility] CHOICE PLUS ([facility] [id number] 11/17/2024 1 [facility] [id number] [facility] [id number] [facility] Notes Date Note Type Note Provider Name and Address Organization Details Recorded Time 06/15/2023 text/html She is here for f/u, taking meds daily, no side effects.Pt is complaining of coughing, wheezing, better with inhalers abdominal pain 7 days, lower abd, constant, no change in bm, no urine problemsHTN- on meds and under control,Meds- lisinopril 10 mg - hctz 12/5 mg q am,Hyperlipidemia- on meds, labs good 10/28, Trig were highAsthma- on alb inhaler prn,Meds- Ventolin HFA 90 2 puffs q4h prn, Flovent 2 puffs bidObesity,- maintained weightGERD- on omeprazole and betterAnxiety- better , no meds neededMeds- no medsHypokalemia- was low in the past, labsSmoker- advised to quit, [id number],EGD 10/26, gastritis, colonoscopy 10/26 nlmeds- omeprazoleLeft knee fx , now has recovered, needs knee replacementchronic diarrhea- takes otch/o diverticulitis x 2 in 2016she is getting easy bruising since got covid.Covid 19 in 01/26LFT mildly high, improved All rhinitis-- otc not helping, ear ache, dizziness, runny nose Julio C Dutton MD [address] [facility], [address], [place], [address], [facility] [employer] 07/01/2023 09:29:58 08/24/2023 text/html Patient is a 53 y/o female here today with c/o lower back pain on the right side. She is having frequency, urgency and some burning upon urination. She is having trouble walking due to the pain. She's also feeling like she needs to urinate but not be able to go. She is taking Advil for pain. Symptoms started 2-3 days ago. She is unable to urinate for a sample.no feverpain on walking Julio C Dutton MD [address], [address], [place], [address], [place] [facility] 08/24/2023 13:04:41 03/21/2024 text/html She is here for f/u, taking meds daily, no side effects.PT IS FASTINGPhysical Right hip surgery 02/29/2024, had a fall, getting home exercisesHTN- on meds and under control,Meds- Lisinopril 10 mg - hctz 12/5 mg q am,Hyperlipidemia- on meds, labs good 10/28, Trig were high, has not taken atorvastatin for monthsAsthma- on alb inhaler prn,Meds- Ventolin HFA 90 2 puffs q4h prn, q raisa dailyObesity- lost 7 lbsGERD- on omeprazole and betterAnxiety- better , no meds neededMeds- no medsHypokalemia- was low , on 0 meq qdSmoker- quit smoking 02/2024EGD 10/26, gastritis, colonoscopy 10/26 nlmeds- omeprazoleLeft knee fx , now has recovered, needs knee replacementChronic diarrhea- takes otch/o diverticulitis x 2 in 2016she is getting easy bruising since got covid.Covid 19 in 01/26LFT mildly high, improved All rhinitis-- otc not helping, ear ache, dizziness, runny nose Julio C Dutton MD [address], [address], [place], [address], [facility] 03/21/2024 16:57:59 07/21/2024 text/html She is here for f/u, taking meds daily, no side effects. PT IS FASTING HTN- on meds and under control,Meds- Lisinopril 10 mg - hctz 12/5 mg q am,Hyperlipidemia- on meds, labs good 05/01, Trig were highAsthma- on alb inhaler prn,Meds- Ventolin HFA 90 2 puffs q4h prn, Qvar dailyObesity- gained 20 lbs, Advised to watch dietGERD- on omeprazole and betterAnxiety- getting worse, has taken paxil but did not like itMeds-start sertralineHypokalemia- was low , now nlSmoker- quit smoking 02/2024EGD 10/26, gastritis, colonoscopy 10/26 nlmeds- omeprazoleLeft knee fx , now has recovered, needs knee replacementChronic diarrhea- takes otch/o diverticulitis x 2 in 2015she is getting easy bruising since got covid.Covid 19 in 01/26LFT mildly high, improved All rhinitis-- otc not helping, ear ache, dizziness, runny nose Julio C Dutton MD [address] [facility], [address], [place], [address], [facility] [employer] [facility] 07/21/2024 10:47:33 11/17/2024 text/html She is here for f/u, taking meds daily, no side effects.PT IS FASTING ( [facility] ) HTN- on meds and under control,Meds- Lisinopril 20 mg - hctz 12/5 mg q am,Hyperlipidemia- on meds, labs good 05/01, Trig were highAsthma- under control, no symptomsMeds- Qvar daily, AirsupraObesity- gained 8 lbs, she is watching her diet, does not have good balance, will benefit form med weight loss due to other health conditionsWould like to discuss ZEPBOUNDGERD- on omeprazole and betterAnxiety- getting worse, has taken paxil but did not like it.Would like to INCREASE the dose as still has symptomsMeds-start sertralineHypokalemia- was low , now nlSmoker- quit smoking 02/2024, smoked for hyearsEGD 10/26, gastritis, colonoscopy 10/26 nlmeds- omeprazoleLeft knee fx , now has recovered, needs knee replacementChronic diarrhea- takes otch/o diverticulitis x 2 in 2015she is getting easy bruising since got covid.Covid 19 in 01/26LFT mildly high, improved All rhinitis-- otc as needed Right hip fx s/p surgery 03/01, had PT doing home exercises Both knee pain- may need surgery Julio C Dutton MD [address] [facility], [facility] [address], [place], [address], [place] [facility] 11/17/2024 10:53:38 OBGyn Episode No OBEpisode recorded.
--- OUTSIDE RECORDS SUMMARY | 2024-12-13 07:29 | XMS_ITS | Clinical Summary ---
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 Role Phone Unavailable Primary Care Provider Unavailabl e Encounters Date Type Department Care Team Description 11/22/2024 External Device Data [facility] Provider, Abstract 10/27/2024 External Device Data [facility] Provider, Abstract 10/26/2024 External Device Data [facility] Provider, Abstract 10/25/2024 External Device Data [facility] Provider, Abstract 10/11/2024 External Device Data [facility] Provider, Abstract 10/11/2024 External Device Data [facility]STRA[facility] Provider, Abstract 10/11/2024 External Device Data [facility]STRACTION Provider, Abstract 10/10/2024 1:45 PM CDT Ancillary Procedure [facility] [address] [place] [address] Munir Soto MD Degenerative joint disease involving multiple joints on both sides of body from Last 3 Months Social History Tobacco Use Types Packs/Day Years Used Date Smoking Tobacco: Never Assessed Comments Unknown Sex and Gender Information Value Date Recorded Sex Assigned at Not on file Legal Sex Female 1:45 PM CDT Gender Identity Not on file Sexual Orientation Not on file Plan of Treatment Health Maintenance Due Date Last Done Comments Pre-Diabetes and Diabetes Screening 1971 HEPATITIS B VACCINES (1 of 3 - 19+ 3-dose series) 1990 HPV/Cotest (21-29) 1992 CERVICAL CANCER SCREENING 2001 HPV/Cotest (30-65) 2001 PAP SMEAR 2001 BREAST CANCER SCREENING 2011 COLORECTAL SCREENING 2016 Colorectal Cancer Screening 2016 FIT-DNA Q 3 years 2016 FIT/FOBT Q 1 year 2016 Flex Sig/CT Colonography Q 5 years 2016 ZOSTER VACCINE (1 of 2) 2021 INFLUENZA VACCINE (#1) 2025 4, 06/15/2023, 04/03/2021 DTAP/TDAP/TD VACCINES (2 - T d or Tdap) 03/07/2029 03/07/2019 Procedures Procedure Name Priority Date/Time Associated Diagnosis Comments XR KNEE 1 OR 2 VW LEFT Routine 10/10/2024 2:02 PM CDT Degenerative joint disease involving multiple joints on both sides of body from Last 3 Months Results * XR KNEE 1 OR 2 VW LEFT (10/10/2024 2:02 PM CDT) Anatomical Region Laterality Modality Lower Extremity Computed Radiogr aphy 10/10/2024 2:02 PM CDT Impressions 10/10/2024 2:05 PM CDT IMPRESSION: 1. Degenerative changes most pronounced involving the lateral knee. Narrative 10/10/2024 2:05 PM CDT EXAM: XR KNEE 1 OR 2 VW LEFT DATE: 10/10/2024 HISTORY: Degenerative joint disease involving multiple joints on both sides of body COMPARISON: None. FINDINGS: No acute fracture or dislocation is seen. No lytic or blastic lesions are noted. There is narrowing of the lateral knee joint. Lateral osteophytic lipping is apparent. Mild degenerative change at the patellofemoral joint is noted. No joint effusion is present. Procedure Note Delonte Clifton MD - 10/10/2024 EXAM: XR KNEE 1 OR 2 VW LEFT DATE: 10/10/2024 HISTORY: Degenerative joint disease involving multiple joints on both sides of body COMPARISON: None. FINDINGS: No acute fracture or dislocation is seen. No lytic or blastic lesions are noted. There is narrowing of the lateral knee joint. Lateral osteophytic lipping is apparent. Mild degenerative change at the patellofemoral joint is noted. No joint effusion is present. IMPRESSION: 1. Degenerative changes most pronounced involving the lateral knee. Munir Soto MD DIAGNOSTIC IMAGING ORDERABLES F inal Result from Last 3 Months Insurance [place] [employer]
--- NOTE | 2024-12-13 07:35 | ECG_ITS ---
Test Date: 2024-12-13 07:49:54 Measurements Intervals [place] Rate: 92 P: 63 CA: 150 QRS: 36 QRSD: 80 T: 55 QT: 368 QTc: 455 Interpretive Statements SINUS RHYTHM WITHIN NORMAL LIMITS Compared to ECG 03/06/2024 03:29:51 No significant changes Electronically Signed On 12-14-2024 07:24:50 CDT by Vladimir Sinha M.D.
--- NOTE | 2024-12-13 07:38 | ED_ITS ---
HPI - Altered Mental Status General Chief Complaint: Altered Mental Status Stated Complaint: AMS Source: patient Mode of arrival: ambulatory Limitations: no limitations History of Present Illness HPI narrative: 54 years old white female came to the ED by ambulance from home. reports patient workup AT 5:00 A.M. confused, MAKING NORTHWAY IN BED, REPEATING THE SAME SYMPTOMS AGAIN AND AGAIN, patient woke up kicking her legs and repeating the same phrase is again and again. PATIENT STARTED DRINKING AT 8:00 P.M. LAST NIGHT, AT 10:00 P.M. WAS DOING OKAY, WITHOUT ANY COMPLAIN, HISTORY OF ANXIETY AND DEPRESSION, WORSE LATELY, CURRENTLY ON ZOLOFT PATIENT REPORTS PATIENT HAVE NO VOMITING, NO DIARRHEA, NO TREMORS, NO DIAPHORESIS, NO SHIVERING, NO MUSCLE SPASM. Related Data Home Medications ?Medication ?Instructions ?Recorded ?Confirmed ?Last Taken ?Type albuterol sulfate 90 mcg/actuation 2 inh inhalation QID PRN Shortness 08/31/20 06/17/24 08/31/20 History aerosol inhaler Of Breath Or Wheezing lisinopril 20 1 tablet PO HS 08/31/20 06/17/24 08/31/20 History mg-hydrochlorothiazide 12.5 mg tablet omeprazole 40 mg capsule,delayed 40 mg PO DAILY 03/28/21 06/17/24 Unknown History release Allergies Allergy/AdvReac Type Severity Reaction Status Date / Time No Known Allergies Allergy Verified 12/13/24 08:04 Review of Systems 2 Review of Systems: ROS unobtainable: Yes unobtainable due to mental status PMFSH Past Medical History Medical History Torn ACL GERD (gastroesophageal reflux disease) Hypertension Tobacco abuse Marijuana abuse Alcohol abuse Closed fracture of lateral portion of left tibial plateau Degenerative arthritis of knee, bilateral Arthritis Anxiety Asthma Surgical History Surgical History No history of previous surgery Family History Family History Mother Congestive heart failure Diabetes mellitus Hypertension Heart disease Sibling Diabetes mellitus Hypertension Asthma Sibling Diabetes mellitus Hypertension Father Hypertension Grandparent History of blood clots Social History Social History Years smoked: 10 Smoking status: Current every day smoker Alcohol intake: current Drinks per week: 24 Substance use: current Substance use type: marijuana Last use: 08/27/20 Do You Feel Safe in your Home?: Yes Lack of Transportation: No Lack of Food: Never True Current Housing: I Have Housing Concerned About Future Housing: No Difficulty Paying Gas/Electric Bills: No Difficulty Paying for Meds: No Currently Unemployed: No Education: High School Diploma/GED Difficulty w/ Childcare or Family Care: No Living arrangements: with family Gender identity (if verbalized by the patient): Female Spiritual care concerns: No Exam 2 Narrative: General appearance: Well-developed, well-nourished, keeps repeating the same sentence again and again. Confused,, LAYING COMFORTABLE IN BED Skin: Normal color Head: Normocephalic, nontraumatic Eyes: Clear conjunctiva pupils wide dilated not reactive to light ENT: Oropharynx normal, ears normal, nose normal Neck: Supple, nontender Chest and respiratory: Airway patent, no respiratory distress, no accessory muscle use Heart: Regular rate/rhythm Abdomen: Soft, nontender, no organomegaly, quiet bowel sounds Vascular: Normal peripheral pulses, normal capillary refill. Musculoskeletal: Normal range of motion, nontender back Neurologic: Alert disoriented time 4 Course Consultations Consultation #1: DR OSORIO ADMIT TO IMU Date: 12/13/24 Vital Signs Vital signs: Vital Signs Temperature 36.4 C L 12/13/24 07:14 Pulse Rate 84 12/13/24 07:14 Respiratory Rate 22 H 12/13/24 07:14 Blood Pressure 149/96 H 12/13/24 07:14 Pulse Oximetry 97 12/13/24 07:14 Oxygen Delivery Room Air 12/13/24 07:14 Temperature 36.4 C L 12/13/24 07:14 Pulse Rate 84 12/13/24 09:55 Respiratory Rate 26 H 12/13/24 09:55 Blood Pressure 160/109 H 12/13/24 09:55 Pulse Oximetry 97 12/13/24 09:55 Oxygen Delivery Room Air 12/13/24 07:14 MDM - Altered Mental Status MDM Narrative Medical decision making narrative: Patient came to the ED with confusion and dilated pupils Vital sign stable Physical examination restless, repeated the same size phrases again and again, does not follow verbal commands Differential diagnosis: Drugs cause dilated pupils include stimulants and psychotropic substance. However dilated pupil CAN RESULT FROM ingesting alcohol ,mescaline, cocaine, ecstasy, amphetamine, cannabis, narcotics, hallucinogenic., bath salts, ketamine and SSRI antidepressants Blood workup today includes CBC CMP, alcohol level NO SIGNIFICANT ABNORMALITIES Urine drug screen, NEGATIVE URINALYSIS SHOWED NO SIGNIFICANT ABNORMALITY Chest x-ray NO ACUTE ABNORMALITIES EKG NORMAL SINUS RHYTHM AT 92 BEATS PER MINUTE CHEST X-RAY SHOWED NO ACUTE ABNORMALITIES PATIENT RECEIVED NARCAN WITHOUT ANY IMPROVEMENT CURRENTLY MORE CALM, RESTING IN BED, AT THE BEDSIDE ADMIT TO HOSPITALIST DIAGNOSIS ACUTE ALTERED OF MENTAL STATUS Differential Diagnosis Differential diagnosis: Likely other ( ABOVE) Medical Records Attestation: I reviewed the patient's medical records. Lab Data Attestation: I reviewed the patient's lab results. 12/13/24 07:37 12/13/24 07:37 Labs: Lab Results 12/13/24 12/13/24 12/13/24 Range/Units 07:27 07:37 07:50 WBC 6.0 (4.5-10.0) K/mm3 RBC 3.94 L (4.2-5.4) M/mm3 Hgb 11.7 L (12.0-15.0) g/dL Hct 35.6 L (37.0-47.0) % MCV 90.4 (80-100) fl MCH 29.7 (26-34) pg MCHC 32.9 (32-36) g/dl RDW 15.9 H (11.5-14.5) % Plt Count 311 (150-375) k/mm3 MPV 9.5 (7.4-10.4) fl Immature Gran % (Auto) 0.2 (0-0.5) % Neut % (Auto) 59.4 (45.5-73.1) % Lymph % (Auto) 30.4 (18.3-44.2) % [place] % (Auto) 8.0 (2.6-8.5) % Eos % (Auto) 1.0 (0-4.4) % Baso % (Auto) 1.0 (0.2-1.2) % Lymph # (Auto) 1.82 (0.9-3.2) K/mm3 [place] # (Auto) 0.5 (0.1-0.6) K/mm3 Eos # (Auto) 0.1 (0-0.3) K/mm3 Baso # (Auto) 0.1 (0.0-0.1) K/mm3 Abs Immat Gran (auto) 0.01 (0.00-0.031) K/mm3 Absolute Neuts (auto) 3.6 (1.3-6.7) K/mm3 Absolute Nucleated RBC 0.000 (0.0-0.012) K/mm3 Nucleated RBC % 0.0 (0.0-0.2) % PT 14.3 (11.1-14.7) Seconds INR 1.1 APTT 21.6 L (22.3-36.8) Seconds Sodium 135 L (137-145) mmol/L Potassium 3.9 (3.4-5.0) mmol/L Chloride 103 (98-107) mmol/L Carbon Dioxide 20 L (22-30) mmol/L Anion Gap 12 (4-12) mmol/L BUN 10 (7-17) mg/dL Creatinine 0.72 (0.7-1.0) mg/dL Estim Creat Clear Calc 92 ml/min Estimated GFR > 60 (59 - ) Glucose 142 H (65-110) mg/dL POC Capillary Glucose 147 H (65-105) mg/dl Calcium 8.9 (8.4-10.2) mg/dL Total Bilirubin 0.3 (0.2-1.3) mg/dL AST 29 (14-36) U/L ALT 19 (6-35) U/L Alkaline Phosphatase 113 (38-126) U/L Total Protein 7.3 (6.3-8.2) g/dL Albumin 3.9 (3.5-5.1) g/dL TSH 2.610 (0.465-4.680) uIU/mL Beta HCG, Quant < 2.39 mIU/ML Urine Color Yellow (Yellow) Urine Appearance Clear (Clear) Urine pH 7.5 (5.0-9.0) Ur Specific [place] 1.013 (1.001-1.035) Urine Protein Negative (Negative) mg/dL Urine Glucose (UA) Negative (Negative) mg/dL Urine Ketones Negative (Negative) mg/dL Ur Blood (Man) Negative (Negative) Urine Nitrate Negative (Negative) Urine Bilirubin Negative (Negative) Urine Urobilinogen 0.2 (<2.0) mg/dL Leukocyte Esterase Rfl Negative (Negative) BINH/UL Urine Opiates Screen Negative (Negative) Urine Methadone Screen Negative (Negative) Ur Barbiturates Screen Negative (Negative) Ur Phencyclidine Scrn Negative (Negative) Ur Amphetamine Screen Negative (Negative) U Benzodiazepines Scrn Negative (Negative) Urine Cocaine Screen Negative (Negative) U Cannabinoids Screen Negative (Negative) Ethyl Alcohol 32 (<10) mg/dL Imaging Data My impression: Impressions Head CT 12/13/24 08:44 Impression: No significant abnormality seen. Exams somewhat degraded by motion artifact. Chest X-Ray 12/13/24 09:42 IMPRESSION: Low lung volumes, without focal infiltrate or effusion. Radiologist's impression: Impressions Head CT 12/13/24 08:44 Impression: No significant abnormality seen. Exams somewhat degraded by motion artifact. ECG Data EKG #1: Attestation: I personally reviewed and interpreted this ECG as follows: ECG completion date: 12/13/24 Interpretation: NORMAL SINUS RHYTHM AT 92 BEATS PER MINUTE, COMPARED TO EKG ON 2023 NO SIGNIFICANT CHANGES Discharge Plan Discharge Clinical Impression: Acute alteration in mental status Patient Disposition: Still a Patient Condition: Stable Patient Language: Telugu Prescriptions: No Action acetaminophen 500 mg Tablet 500 mg PO Q6H PRN (Reason: Pain Rated 1-3) Qty: 30 0RF Rx Instructions: For mild to moderate pain calcium carbonate 500 mg calcium (1,250 mg) Tablet,Chewable 200 mg PO Q6H PRN (Reason: Indigestion) Qty: 30 0RF nicotine [Nicoderm CQ] 21 mg/24 hr Patch 24 Hour 1 patch transdermal DAILY Qty: 30 0RF ibuprofen 600 mg Tablet 600 mg PO Q6H PRN (Reason: Pain Rated 4-6) Qty: 20 0RF hydroxyzine pamoate 25 mg Capsule 50 mg PO Q4H PRN (Reason: Itching) Qty: 30 0RF albuterol sulfate 90 mcg/actuation HFA aerosol inhaler 2 inh INHALATION QID PRN (Reason: Shortness Of Breath Or Wheezing) lisinopril-hydrochlorothiazide 20-12.5 mg tablet 1 tablet PO HS potassium chloride [K-Tab] 20 mEq Tablet Extended Release 20 meq PO BID Qty: 20 0RF omeprazole 40 mg capsule,delayed release(DR/EC) 40 mg PO DAILY Follow-up/Referrals: Marija,Julio C Hernandez MD [Primary Care Provider] -
[2024-12-13 07:44] LABS: Hematocrit 35.6 % (37.0-47.0); Hemoglobin 11.7 g/dL (12.0-15.0); Immature Granulocyte Percent A 0.2 % (0-0.5); Lymphocytes Absolute Auto 1.82 K/mm3 (0.9-3.2); Mean Corpuscular HGB Conc 32.9 g/dl (32-36); Mean Corpuscular Hemoglobin 29.7 pg (26-34); Mean Corpuscular Volume 90.4 fl (80-100); Nucleated Red Blood Cells Absolute Auto 0.000 K/mm3 (0.0-0.012); Nucleated Red Blood Cells Perc 0.0 % (0.0-0.2); Platelet Count Result 311 k/mm3 (150-375); Red Blood Count 3.94 M/mm3 (4.2-5.4); White Blood Count 6.0 K/mm3 (4.5-10.0)
[2024-12-13 07:53] LABS: Alanine Aminotransferase 19 U/L (6-35); Albumin Level 3.9 g/dL (3.5-5.1); Alkaline Phosphatase 113 U/L (38-126); Anion Gap 12 mmol/L (4-12); Aspartate Amino Transferase 29 U/L (14-36); Bilirubin,Total 0.3 mg/dL (0.2-1.3); Blood Urea Nitrogen 10 mg/dL (7-17); Calcium 8.9 mg/dL (8.4-10.2); Carbon Dioxide 20 mmol/L (22-30); Chloride 103 mmol/L (98-107); Estimated CRCL calculation 92 ml/min; Estimated Glomerular Filt Rate > 60; Glucose 142 mg/dL (65-110); Potassium 3.9 mmol/L (3.4-5.0); Sodium 135 mmol/L (137-145); Total Protein 7.3 g/dL (6.3-8.2)
[2024-12-13 07:58] LABS: Add Urine Microscopic? NO; Appearance Urine Clear (Clear); Glucose Urine UA Negative (Negative); Leukocyte Esterase Ur Negative LEU/UL (Negative); Nitrate Urine Negative (Negative); Specific Grav Ur 1.013 (1.001-1.035)
[2024-12-13] MEDS: NALOXONE HCL 0.4 MG/ML VIAL IV PUSH ×2 (07:59→08:08)
--- NOTE | 2024-12-13 08:03 | PC.NURSE ---
Pt at bedside and states that over the last few days the pt has been talking to herself more and more and has not been making sense when she talks
[2024-12-13 08:14] LABS: Cannabinoid Screen Urine Negative (Negative)
[2024-12-13 08:15] LABS: INR 1.1; Prothrombin Time 14.3 Seconds (11.1-14.7)
[2024-12-13 08:17] LABS: Partial Thromboplastin Time 21.6 Seconds (22.3-36.8)
[2024-12-13 08:24] LABS: Beta HCG Quantitative < 2.39 mIU/ML
--- NOTE | 2024-12-13 08:32 | PC.NURSE ---
Pt to CT via stretcher on tele and O2 monitor at this time
[2024-12-13 08:38] LABS: Thyroid Stimulating Hormone 2.610 uIU/mL (0.465-4.680)
[2024-12-13] MEDS: SODIUM CHLORIDE 0.9% IV 1,000 ML 150 ML IV CONT ×2 (10:34→18:19)
--- NOTE | 2024-12-13 11:41 | ADMGEN ---
This patient, Yanira Oshea, was admitted to IMU Room 206-01 at 1123. Patient/family oriented to hospital policies and general routines including ID bracelet, bed and alarms, visiting hours, pain management, procedures, bathroom and other care routines, personal items, smoking policy, room service/diet, and visiting hours. Information on how to activate the Rapid Response Team has been discussed. Patient/Family are encouraged to report perceived risks to care and to ask questions if they do not understand what they are told or what they should do.
--- NOTE | 2024-12-13 14:16 | P.HP_ITS ---
H&P: HPI History of Present Illness Date/Time: 12/13/24 14:16 Chief Complaint: AMS Narrative: ER-HPI narrative: 54 years old white female came to the ED by ambulance from home. reports patient workup AT 5:00 A.M. confused, MAKING [place] IN BED, REPEATING THE SAME SYMPTOMS AGAIN AND AGAIN, patient woke up kicking her legs and repeating the same phrase is again and again. PATIENT STARTED DRINKING AT 8:00 P.M. LAST NIGHT, AT 10:00 P.M. WAS DOING OKAY, WITHOUT ANY COMPLAIN, HISTORY OF ANXIETY AND DEPRESSION, WORSE LATELY, CURRENTLY ON ZOLOFT PATIENT REPORTS PATIENT HAVE NO VOMITING, NO DIARRHEA, NO TREMORS, NO DIAPHORESIS, NO SHIVERING, NO MUSCLE SPASM. patient is quite confused and poor historian, her daughters and son are present in the room, one daughter stats she appear to have seizure, details are not available, to further evaluate will do EEG, will place patient on CIWA protocol, and libirium PRN, start no thiamin and folic acid. patient has history of alcohol abuse and was drinking last night, patient with history of depression and Anxiety and her PMD started the patient on zoloft, patient has c/o rt foot pain, will do x-ray of the foot. [facility] Past Medical History Medical History Torn ACL GERD (gastroesophageal reflux disease) Hypertension Tobacco abuse Marijuana abuse Alcohol abuse Closed fracture of lateral portion of left tibial plateau Degenerative arthritis of knee, bilateral Arthritis Anxiety Asthma Surgical History Surgical History No history of previous surgery Family History Family History (Updated 12/13/24 @ 11:57 by Desirae Carrillo RN) Mother Diabetes mellitus Congestive heart failure Heart disease Hypertension Pacemaker Sibling Diabetes mellitus Hypertension Asthma Sibling Diabetes mellitus Hypertension Father Hypertension Dementia Grandparent History of blood clots Social History Social History Years smoked: 10 Smoking status: Current every day smoker Alcohol intake: current Drinks per week: 25 Substance use: former Substance use type: marijuana Last use: 08/27/20 Do You Feel Safe in your Home?: Yes Lack of Transportation: No Lack of Food: Never True Current Housing: I Have Housing Concerned About Future Housing: No Difficulty Paying Gas/Electric Bills: No Difficulty Paying for Meds: No Currently Unemployed: No Education: High School Diploma/GED Difficulty w/ Childcare or Family Care: No Living arrangements: with family Gender identity (if verbalized by the patient): Female Spiritual care concerns: No Meds Home Medications and Allergies Home Medications ?Medication ?Instructions ?Recorded ?Confirmed ?Type albuterol sulfate 90 mcg/actuation 2 inh inhalation QID PRN Shortness 08/31/20 12/13/24 History aerosol inhaler Of Breath Or Wheezing lisinopril 20 1 tablet PO HS 08/31/20 12/13/24 History mg-hydrochlorothiazide 12.5 mg tablet potassium chloride 20 mEq 20 meq PO BID #20 tabs 09/01/20 12/13/24 Rx tablet,extended release (K-Tab) omeprazole 40 mg capsule,delayed 40 mg PO DAILY 03/28/21 12/13/24 History release acetaminophen 500 mg tablet 500 mg PO Q6H PRN Pain Rated 1-3 03/09/24 12/13/24 Rx #30 tabs calcium carbonate 200 mg (0.4 x 500 mg calcium 03/09/24 12/13/24 Rx (1,250 mg)) PO Q6H PRN Indigestion #30 tabs ibuprofen 600 mg tablet 600 mg PO Q6H PRN Pain Rated 4-6 03/09/24 12/13/24 Rx #20 tabs sertraline 100 mg tablet 100 mg PO DAILY 12/13/24 12/13/24 History Allergies Allergy/AdvReac Type Severity Reaction Status Date / Time No Known Allergies Allergy Verified 12/13/24 13:55 Vital Signs Vital Signs - 24 hr 12/13/24 07:14 12/13/24 07:35 12/13/24 08:02 Temperature 36.4 C L Pulse Rate 84 98 92 Respiratory Rate 22 H 24 H Blood Pressure 149/96 H 150/99 H Pulse Oximetry 97 100 Oxygen Delivery Room Air 12/13/24 09:55 12/13/24 11:17 12/13/24 11:30 Temperature 36.4 C L Pulse Rate 84 82 79 Respiratory Rate 26 H 19 Blood Pressure 160/109 H 143/96 H Pulse Oximetry 97 99 Oxygen Delivery 12/13/24 12:00 12/13/24 12:00 Temperature 36.6 C Pulse Rate 80 77 Respiratory Rate 20 Blood Pressure 116/79 Pulse Oximetry 98 Oxygen Delivery Exam Narrative: Patient is comfortable, NAD HEENT: eyes are clear and none icteric LUNGS:CTA HEART: RR S1S2 ABD: BS+, Soft and nontender Lower extremities: no edema SKIN: nonjaundiced Neuro: grossly intact. H&P: Results Labs Labs: Short CBC 12/13/24 Range/Units 07:37 WBC 6.0 (4.5-10.0) K/mm3 Hgb 11.7 L (12.0-15.0) g/dL Hct 35.6 L (37.0-47.0) % Plt Count 311 (150-375) k/mm3 BMP 12/13/24 07:37 Sodium 135 L Potassium 3.9 Chloride 103 Carbon Dioxide 20 L BUN 10 Creatinine 0.72 Glucose 142 H Calcium 8.9 Liver Function 12/13/24 Range/Units 07:37 Total Bilirubin 0.3 (0.2-1.3) mg/dL AST 29 (14-36) U/L ALT 19 (6-35) U/L Alkaline Phosphatase 113 (38-126) U/L Albumin 3.9 (3.5-5.1) g/dL Urine 12/13/24 Range/Units 07:50 Urine Color Yellow (Yellow) Urine Appearance Clear (Clear) Urine pH 7.5 (5.0-9.0) Ur Specific [place] 1.013 (1.001-1.035) Urine Protein Negative (Negative) mg/dL Urine Glucose (UA) Negative (Negative) mg/dL Assessment and Plan Assessment and plan (1) Acute alteration in mental status: Code(s): R41.82 - Altered mental status, unspecified Status: Acute (2) Alcohol abuse: Code(s): F10.10 - Alcohol abuse, uncomplicated Status: Acute (3) Anxiety: Code(s): F41.9 - Anxiety disorder, unspecified Status: Acute (4) Depressed: Code(s): F32.A - Depression, unspecified Status: Acute Plan patient is quite confused and poor historian, her daughters and son are present in the room, one daughter stats she appear to have seizure, details are not available, to further evaluate will do EEG, will place patient on CIWA protocol, and libirium PRN, start no thiamin and folic acid. patient has history of alcohol abuse and was drinking last night, patient with history of depression and Anxiety and her PMD started the patient on zoloft, patient has c/o rt foot pain, will do x-ray of the foot. Quality VTE Prophylaxis VTE prophylaxis: mechanical ordered Hospitalist MIPS Advance Care Plan The patient's Advanced Care plan is not present because:: Patient doesn't want to name surrogate or provider advance care plan Medication Reconciliation The patient is not eligible for med reconciliation; the patient is in a emergent medical situation where delaying treatment would jeopardize the patients health.: Yes
[2024-12-13] MEDS: PANTOPRAZOLE 40 MG TABLET PO (16:12)
[2024-12-13] MEDS: POTASSIUM CHLORIDE 20 MEQ ER TABLET PO (16:12)
[2024-12-14] VITALS (14 sets, daily range): BP systolic 121–150; BP diastolic 75–87; PULSE 70–106; RESP 18–20; TEMP 36.6–36.8; O2SAT 96–99
[2024-12-14] MEDS: SODIUM CHLORIDE 0.9% IV 1,000 ML 150 ML IV CONT ×2 (00:11→07:02)
[2024-12-14] MEDS: ALBUTEROL SULFATE (*SP) AEROSOL 1 PUFF 2 PUFF INHALATION ×2 (06:18→16:19)
[2024-12-14 08:27] LABS: Hematocrit 36.5 % (37.0-47.0); Hemoglobin 11.7 g/dL (12.0-15.0); Mean Corpuscular HGB Conc 32.1 g/dl (32-36); Mean Corpuscular Hemoglobin 30.5 pg (26-34); Mean Corpuscular Volume 95.1 fl (80-100); Platelet Count Result 303 k/mm3 (150-375); Red Blood Count 3.84 M/mm3 (4.2-5.4); White Blood Count 9.4 K/mm3 (4.5-10.0)
[2024-12-14 08:47] LABS: Alanine Aminotransferase 26 U/L (6-35); Albumin Level 3.8 g/dL (3.5-5.1); Alkaline Phosphatase 86 U/L (38-126); Anion Gap 10 mmol/L (4-12); Aspartate Amino Transferase 48 U/L (14-36); Bilirubin,Total 0.6 mg/dL (0.2-1.3); Blood Urea Nitrogen 8 mg/dL (7-17); Calcium 9.0 mg/dL (8.4-10.2); Carbon Dioxide 18 mmol/L (22-30); Chloride 114 mmol/L (98-107); Estimated CRCL calculation 86 ml/min; Estimated Glomerular Filt Rate > 60; Glucose 96 mg/dL (65-110); Magnesium 1.7 mg/dL (1.6-2.3); Potassium 3.9 mmol/L (3.4-5.0); Sodium 142 mmol/L (137-145); Total Protein 7.1 g/dL (6.3-8.2)
--- NOTE | 2024-12-14 09:01 | P.NEURO_ITS ---
Neurology EEG Report General Information Date of Study: 12/13/24 TEST EEG DIAGNOSIS Seizures CONDITION OF RECORDING drowsy, confused and disoriented with brief Periods of sleep. EEG NUMBER [id number] CLINICAL HISTORY patient has been admitted to the with acute changes in mental status and co ncern for seizures. patient had an episode out of sleep where she began talking funny and then started rolling around and shaking with eyes rolling into her head. Patient was unable to answer questions and kept just repeating what her was asking her. patient seemed very disoriented when entering room could not stay awake long. Patient seemed very restless, anxious, and talking very slow. Patient has short memory has been getting worse and the electrical engineering technician also noted she forgot commands or information but she had given her before, during and after test. She became more oriented towards the end of the test. EEG DESCRIPTION Whole record consists of medium to high voltage 2 to 3 hertz per 2nd delta activity admixed and superimposed by low-voltage 15 to 21 hertz per 2nd beta activity. Brief periods of sleep were noted when delta activity seen admixed with low-voltage beta activity and some spindle formation. Multiple movement artifacts are noted throughout the tracing. Photic stimulation not done. Hyperventilation not done. Non paroxysmal. Nonfocal. Nonlateralizing. IMPRESSION Abnormal record due to the presence of bihemispheric delta activity without any paroxysmal discharge. This abnormality could be consistent with encephalopathy or postictal state clinical correlation recommended.
[2024-12-14] MEDS: ACETAMINOPHEN 500 MG TABLET PO ×2 (09:20→16:19)
[2024-12-14] MEDS: PANTOPRAZOLE 40 MG TABLET PO ×2 (09:20→16:19)
[2024-12-14] MEDS: POTASSIUM CHLORIDE 20 MEQ ER TABLET PO ×2 (09:20→16:19)
[2024-12-14] MEDS: SERTRALINE HCL 50 MG TABLET 100 MG PO (09:21)
--- NOTE | 2024-12-14 10:06 | P.CONNEU_ITS ---
Assessment and Plan Assessment and plan (1) Acute alteration in mental status: Code(s): R41.82 - Altered mental status, unspecified Status: Acute (2) Anxiety: Code(s): F41.9 - Anxiety disorder, unspecified Status: Acute (3) Alcohol abuse: Code(s): F10.10 - Alcohol abuse, uncomplicated Status: Acute Plan 1. Anxiety with depression as per the review of the medical record 2. History of alcohol abuse 3. Recent change in mental status rule out the possibility of seizure, will obtain the EEG but in the meantime continue the seizure precautions or evaluation for any change in mental status her CT scan in the ER was negative with no evidence of any bleed Mimi MRI of the brain will be obtained in addition to the EEG is mention, if any question arises please do not hesitate to contact me thank Consult date: 12/14/24 HPI: Yanira Oshea is a 54 year old female Admitted to the hospital through the emergency room where she was brought by the ambulance from home. As per the information available from her she woke up at 5:00 a.m. confused, making circles in around the bed and repeating the same symptoms again and again. Patient reported started drinking at 8:00 p.m. last night , she has ongoing history of anxiety with depression which is getting worse lately and she is at present on Zoloft. Her medications included lisinopril 20mg with hydrochlorothiazide 12. 5mg daily in addition to Zoloft. She is not allergic to any medications. She has ongoing history of 1. Hypertension 2. Anxiety 3. Alcohol abuse and tobacco abuse 4. GERD. she is currently everyday smoker, 24 drinks per week, initial exam in the ER grossly nonfocal, vital signs normal, with respiration rate 22 and blood pressure 149/96, CBC normal BMP normal, mast scan normal, UA normal, alcohol level 32, CT of the head negative for the bleed the exam was somewhat degraded by motion artifacts, x-ray chest negative, EKG normal, without any atrial fibrillation, Review of Systems 2 Review of Systems: All systems reviewed & are unremarkable except as noted in HPI and below PMFSH Past Medical History Medical History Torn ACL GERD (gastroesophageal reflux disease) Hypertension Tobacco abuse Marijuana abuse Alcohol abuse Closed fracture of lateral portion of left tibial plateau Degenerative arthritis of knee, bilateral Arthritis Anxiety Asthma Surgical History Surgical History No history of previous surgery Family History Family History Mother Diabetes mellitus Congestive heart failure Heart disease Hypertension Pacemaker Sibling Diabetes mellitus Hypertension Asthma Sibling Diabetes mellitus Hypertension Father Hypertension Dementia Grandparent History of blood clots Social History Social History Years smoked: 10 Smoking status: Current every day smoker Alcohol intake: current Drinks per week: 25 Substance use: former Substance use type: marijuana Last use: 08/27/20 Do You Feel Safe in your Home?: Yes Lack of Transportation: No Lack of Food: Never True Current Housing: I Have Housing Concerned About Future Housing: No Difficulty Paying Gas/Electric Bills: No Difficulty Paying for Meds: No Currently Unemployed: No Education: High School Diploma/GED Difficulty w/ Childcare or Family Care: No Living arrangements: with family Gender identity (if verbalized by the patient): Female Spiritual care concerns: No Meds Home Medications and Allergies Home Medications ?Medication ?Instructions ?Recorded ?Confirmed ?Type albuterol sulfate 90 mcg/actuation 2 inh inhalation QID PRN Shortness 08/31/20 12/13/24 History aerosol inhaler Of Breath Or Wheezing lisinopril 20 1 tablet PO HS 08/31/20 12/13/24 History mg-hydrochlorothiazide 12.5 mg tablet potassium chloride 20 mEq 20 meq PO BID #20 tabs 09/01/20 12/13/24 Rx tablet,extended release (K-Tab) omeprazole 40 mg capsule,delayed 40 mg PO DAILY 03/28/21 12/13/24 History release acetaminophen 500 mg tablet 500 mg PO Q6H PRN Pain Rated 1-3 03/09/24 12/13/24 Rx #30 tabs calcium carbonate 200 mg (0.4 x 500 mg calcium 03/09/24 12/13/24 Rx (1,250 mg)) PO Q6H PRN Indigestion #30 tabs ibuprofen 600 mg tablet 600 mg PO Q6H PRN Pain Rated 4-6 03/09/24 12/13/24 Rx #20 tabs sertraline 100 mg tablet 100 mg PO DAILY 12/13/24 12/13/24 History Allergies Allergy/AdvReac Type Severity Reaction Status Date / Time No Known Allergies Allergy Verified 12/13/24 13:55 Vital Signs Vital Signs - 24 hr 12/13/24 11:17 12/13/24 11:30 12/13/24 12:00 Temperature 36.4 C L 36.6 C Pulse Rate 82 79 80 Respiratory Rate 19 20 Blood Pressure 143/96 H 116/79 Pulse Oximetry 99 98 Oxygen Delivery Fraction of Inspired Oxygen 12/13/24 12:00 12/13/24 14:00 12/13/24 16:00 Temperature 36.7 C Pulse Rate 77 81 80 Respiratory Rate 20 Blood Pressure 129/99 H Pulse Oximetry 100 Oxygen Delivery Fraction of Inspired Oxygen 12/13/24 16:00 12/13/24 17:54 12/13/24 19:34 Temperature 36.7 C Pulse Rate 83 79 80 Respiratory Rate 20 Blood Pressure 131/93 H Pulse Oximetry 98 Oxygen Delivery Fraction of Inspired Oxygen 12/13/24 20:00 12/13/24 22:19 12/13/24 23:51 Temperature 36.6 C Pulse Rate 90 95 84 Respiratory Rate 20 Blood Pressure 137/78 Pulse Oximetry 100 Oxygen Delivery Fraction of Inspired Oxygen 12/14/24 00:00 12/14/24 02:00 12/14/24 03:38 Temperature 36.6 C Pulse Rate 80 80 77 Respiratory Rate 20 Blood Pressure 130/82 Pulse Oximetry 99 Oxygen Delivery Fraction of Inspired Oxygen 12/14/24 04:00 12/14/24 06:08 12/14/24 08:00 Temperature 36.8 C Pulse Rate 82 78 83 Respiratory Rate 18 Blood Pressure 121/86 Pulse Oximetry 99 Oxygen Delivery Fraction of Inspired Oxygen 12/14/24 09:38 Temperature Pulse Rate Respiratory Rate Blood Pressure Pulse Oximetry 96 Oxygen Delivery Room Air Fraction of Inspired Oxygen 21 Exam 2 Narrative: Exam today reveals her to be awake alert cooperative in no obvious acute distress, his speech not dysphasic not dysarthric not dysphonic, head normocephalic with no cranial bruits, ear nose throat examination normal, neck supple with no cervical bruit no thyromegaly no lymphadenopathy, heart regular with no murmur, lungs clear to auscultation with no rhonchi or crepitations, abdomen soft nontender with normal bowel sounds, neurologically she is awake alert was able to relate to the physician and her speech was not dysphasic not dysarthric not dysphonic she was aware of right and left and she follows instructions fairly well. Pupils were round regular feels the vision full in all 4 quadrants extraocular movements are full with no nystagmus facial sensation was intact face symmetrical tongue midline uvula midline motor examination revealed her to have normal strength and tone in upper and lower extremities with select issue but symmetrical reflexes and downgoing plantar responses there was no evidence of ataxia or dysmetria on finger to nose to finger heel to knee to myrick. Results Labs 12/14/24 08:22 12/14/24 08:22 Labs: Short CBC 12/14/24 Range/Units 08:22 WBC 9.4 (4.5-10.0) K/mm3 Hgb 11.7 L (12.0-15.0) g/dL Hct 36.5 L (37.0-47.0) % Plt Count 303 (150-375) k/mm3 BMP 12/14/24 08:22 Sodium 142 Potassium 3.9 Chloride 114 H Carbon Dioxide 18 L BUN 8 Creatinine 0.70 Glucose 96 Calcium 9.0 Liver Function 12/14/24 Range/Units 08:22 Total Bilirubin 0.6 (0.2-1.3) mg/dL AST 48 H (14-36) U/L ALT 26 (6-35) U/L Alkaline Phosphatase 86 (38-126) U/L Albumin 3.8 (3.5-5.1) g/dL
--- NOTE | 2024-12-14 15:40 | PM.IMPN ---
Progress Note: A&P Assessment and Plan (1) Acute alteration in mental status: Code(s): R41.82 - Altered mental status, unspecified Status: Acute (2) Alcohol abuse: Code(s): F10.10 - Alcohol abuse, uncomplicated Status: Acute (3) Anxiety: Code(s): F41.9 - Anxiety disorder, unspecified Status: Acute (4) Depressed: Code(s): F32.A - Depression, unspecified Status: Acute Plan patient is quite confused and poor historian, her daughters and son are present in the room, one daughter stats she appear to have seizure, details are not available, to further evaluate will do EEG, will place patient on CIWA protocol, and libirium PRN, start no thiamin and folic acid. patient has history of alcohol abuse and was drinking last night, patient with history of depression and Anxiety and her PMD started the patient on zoloft, patient has c/o rt foot pain, will do x-ray of the foot. today patient is more alert and stats feels better, does not recollect what happened yesterday, her is present in the room, patient had EEG it is concerning for post ictal state suggesting patient had a seizure, and neurologist has seen the patient and recommending MRI of brain to further evaluate, patient has history of alcohol abuse, started patient on CIWA protocol and Librium 25mg PRN, will monitor and plan. Subjective Date/time seen: 12/14/24 15:40 Interval history: patient is quite confused and poor historian, her daughters and son are present in the room, one daughter stats she appear to have seizure, details are not available, to further evaluate will do EEG, will place patient on CIWA protocol, and libirium PRN, start on thiamin and folic acid. patient has history of alcohol abuse and was drinking last night, patient with history of depression and Anxiety and her PMD started the patient on zoloft, patient has c/o rt foot pain, will do x-ray of the foot. today patient is more alert and stats feels better, does not recollect what happened yesterday, her is present in the room, patient had EEG it is concerning for post ictal state suggesting patient had a seizure, and neurologist has seen the patient and recommending MRI of brain to further evaluate, patient has history of alcohol abuse, started patient on CIWA protocol and Librium 25mg PRN, will monitor and plan. Exam Narrative: Patient is comfortable, NAD HEENT: eyes are clear and none icteric LUNGS:CTA HEART: RR S1S2 ABD: BS+, Soft and nontender Lower extremities: no edema SKIN: nonjaundiced Neuro: grossly intact. Objective Data Vital Signs Vital Signs: Vital Signs - 24 hr 12/13/24 16:00 12/13/24 16:00 12/13/24 17:54 Temperature 36.7 C Pulse Rate 80 83 79 Respiratory Rate 20 Blood Pressure 129/99 H Pulse Oximetry 100 Oxygen Delivery Fraction of Inspired Oxygen 12/13/24 19:34 12/13/24 20:00 12/13/24 22:19 Temperature 36.7 C Pulse Rate 80 90 95 Respiratory Rate 20 Blood Pressure 131/93 H Pulse Oximetry 98 Oxygen Delivery Fraction of Inspired Oxygen 12/13/24 23:51 12/14/24 00:00 12/14/24 02:00 Temperature 36.6 C Pulse Rate 84 80 80 Respiratory Rate 20 Blood Pressure 137/78 Pulse Oximetry 100 Oxygen Delivery Fraction of Inspired Oxygen 12/14/24 03:38 12/14/24 04:00 12/14/24 06:08 Temperature 36.6 C Pulse Rate 77 82 78 Respiratory Rate 20 Blood Pressure 130/82 Pulse Oximetry 99 Oxygen Delivery Fraction of Inspired Oxygen 12/14/24 08:00 12/14/24 08:00 12/14/24 09:38 Temperature 36.8 C Pulse Rate 83 80 Respiratory Rate 18 Blood Pressure 121/86 Pulse Oximetry 99 96 Oxygen Delivery Room Air Fraction of Inspired Oxygen 21 12/14/24 10:00 12/14/24 12:00 12/14/24 12:18 Temperature 36.8 C Pulse Rate 77 103 H 80 Respiratory Rate 18 Blood Pressure 144/86 H Pulse Oximetry 99 Oxygen Delivery Fraction of Inspired Oxygen 12/14/24 14:00 Temperature Pulse Rate 78 Respiratory Rate Blood Pressure Pulse Oximetry Oxygen Delivery Fraction of Inspired Oxygen Intake/Output Intake/Output: Intake & Output 12/11/24 12/12/24 12/13/24 12/14/24 23:59 23:59 23:59 23:59 Intake Total 1570 3202.5 Output Total 1300 200 Balance 270 3002.5 Meds/Results Medications: Active Medications Generic Name Dose Route Start Last Admin Trade Name Freq PRN Reason Stop Dose Admin Acetaminophen 650 mg 12/13/24 09:29 Acetaminophen 650 Mg Suppository RECTAL Q6H PRN Mild Pain (1-3) or Fever Acetaminophen 500 mg 12/13/24 14:25 12/14/24 09:20 Acetaminophen 500 Mg Tablet PO 500 mg Q6H PRN Administration Pain Rated 1-3 Albuterol 2 puff 12/13/24 14:25 12/14/24 06:18 Albuterol Sulfate (*Sp) Aerosol 1 Puff INHALATION 2 puff QID PRN Administration Shortness Of Breath Or Wheezing Calcium Carbonate 200 mg 12/13/24 14:25 Calcium Carbonate (Tums) 500 Mg (200 Mg Elemental) PO Q6H PRN Indigestion Chlordiazepoxide HCl 25 mg 12/13/24 13:04 Chlordiazepoxide (*Crx) 25 Mg Capsule PO Q6H PRN Withdrawal Hydrochlorothiazide 12.5 mg 12/14/24 09:00 12/14/24 09:21 Hydrochlorothiazide 12.5 Mg Capsule PO 12.5 mg QAM DEIDRA Administration Ibuprofen 600 mg 12/13/24 14:25 Ibuprofen 600 Mg Tablet PO Q6H PRN Pain Rated 4-6 Lisinopril 20 mg 12/14/24 09:00 12/14/24 09:20 Lisinopril 20 Mg Tablet PO 20 mg QAM DEIDRA Administration Pantoprazole Sodium 40 mg 12/13/24 17:00 12/14/24 09:20 Pantoprazole 40 Mg Tablet PO 40 mg BID DEIDRA Administration Potassium Chloride 20 meq 12/13/24 17:00 12/14/24 09:20 Potassium Chloride 20 Meq Er Tablet PO 20 meq BID DEIDRA Administration Sertraline HCl 100 mg 12/14/24 09:00 12/14/24 09:21 Sertraline Hcl 50 Mg Tablet PO 100 mg DAILY DEIDRA Administration Radiology Results: ITS Impressions Head CT 12/13/24 08:44 Impression: No significant abnormality seen. Exams somewhat degraded by motion artifact. Chest X-Ray 12/13/24 09:42 IMPRESSION: Low lung volumes, without focal infiltrate or effusion. Foot X-Ray 12/13/24 18:11 IMPRESSION: Degenerative disease, without acute fracture. Labs Labs: Laboratory Results - last 24 hr 12/14/24 08:22 WBC 9.4 RBC 3.84 L Hgb 11.7 L Hct 36.5 L MCV 95.1 D MCH 30.5 MCHC 32.1 RDW 16.6 H Plt Count 303 MPV 9.5 Sodium 142 Potassium 3.9 Chloride 114 H Carbon Dioxide 18 L Anion Gap 10 BUN 8 Creatinine 0.70 Estim Creat Clear Calc 86 Estimated GFR > 60 Glucose 96 Calcium 9.0 Magnesium 1.7 Total Bilirubin 0.6 AST 48 H ALT 26 Alkaline Phosphatase 86 Total Protein 7.1 Albumin 3.8 Quality VTE Prophylaxis VTE prophylaxis: mechanical ordered
[2024-12-14] MEDS: MULTIVITAMINS THERAPEUTIC TAB (*BKC) 1 TABLET PO (16:19)
[2024-12-14] MEDS: THIAMINE HCL 100 MG TABLET PO (16:20)
--- NOTE | 2024-12-14 17:56 | PC.NURSE ---
Report given to Trista on [facility] medical. Patient is being transferred to room 349.
[2024-12-14] MEDS: MELATONIN 5 MG TABLET 10 MG PO (20:52)
[2024-12-15] VITALS: PULSE 82
[2024-12-15 04:00] VITALS: PULSE 80
[2024-12-15 06:00] VITALS: BP 144/77; PULSE 74; RESP 18; TEMP 36.8; O2SAT 97
[2024-12-15 07:41] LABS: Hematocrit 31.2 % (37.0-47.0); Hemoglobin 9.9 g/dL (12.0-15.0); Immature Granulocyte Percent A 0.4 % (0-0.5); Lymphocytes Absolute Auto 1.75 K/mm3 (0.9-3.2); Mean Corpuscular HGB Conc 31.7 g/dl (32-36); Mean Corpuscular Hemoglobin 30.6 pg (26-34); Mean Corpuscular Volume 96.3 fl (80-100); Nucleated Red Blood Cells Absolute Auto 0.000 K/mm3 (0.0-0.012); Nucleated Red Blood Cells Perc 0.0 % (0.0-0.2); Platelet Count Result 233 k/mm3 (150-375); Red Blood Count 3.24 M/mm3 (4.2-5.4); White Blood Count 8.4 K/mm3 (4.5-10.0)
[2024-12-15 08:00] VITALS: PULSE 83
[2024-12-15 08:08] LABS: Alanine Aminotransferase 18 U/L (6-35); Albumin Level 3.2 g/dL (3.5-5.1); Alkaline Phosphatase 83 U/L (38-126); Anion Gap 6 mmol/L (4-12); Aspartate Amino Transferase 45 U/L (14-36); Bilirubin,Total 0.3 mg/dL (0.2-1.3); Blood Urea Nitrogen 11 mg/dL (7-17); Calcium 8.7 mg/dL (8.4-10.2); Carbon Dioxide 20 mmol/L (22-30); Chloride 115 mmol/L (98-107); Estimated CRCL calculation 98 ml/min; Estimated Glomerular Filt Rate > 60; Glucose 101 mg/dL (65-110); Potassium 3.9 mmol/L (3.4-5.0); Sodium 141 mmol/L (137-145); Total Protein 6.1 g/dL (6.3-8.2)
[2024-12-15] MEDS: PANTOPRAZOLE 40 MG TABLET PO (10:38)
[2024-12-15] MEDS: SERTRALINE HCL 50 MG TABLET 100 MG PO (10:38)
[2024-12-15] MEDS: THIAMINE HCL 100 MG TABLET PO (10:38)
[2024-12-15] MEDS: MULTIVITAMINS THERAPEUTIC TAB (*BKC) 1 TABLET PO (10:38)
[2024-12-15] MEDS: POTASSIUM CHLORIDE 20 MEQ ER TABLET PO (10:39)
--- NOTE | 2024-12-15 12:30 | P.DS_ITS ---
DS: Admitting Diagnosis Discharge Date 12/15/24 Admitting Diagnosis Altered Mental Status DS: Discharge Diagnosis Discharge Diagnosis (1) Acute alteration in mental status: Code(s): R41.82 - Altered mental status, unspecified Status: Acute Assessment and Plan: * Presentation to ER w/AMS. * CT negative * MRI Showing no acute abnormalities, but there are small left frontal lobe periventricular white matter hyperintensity with decreased density. * EEG showing post-ictal vs. Encephalopathic state. * Evaluated by Dr. Mendoza, and concern for likely seizure activity. he will follow in one month * No driving for six months. * Start Keppra 750 mg BID (2) Alcohol abuse: Code(s): F10.10 - Alcohol abuse, uncomplicated Status: Chronic Assessment and Plan: * Negative ETOH upon arrival to ER. * Pt counseled for not drinking alcohol while taking medications especially, but for cessation in general. (3) Anxiety: Code(s): F41.9 - Anxiety disorder, unspecified Status: Chronic Assessment and Plan: * Continue home Zoloft (4) Depressed: Code(s): F32.A - Depression, unspecified Status: Chronic Assessment and Plan: * Continue home Zoloft. Plan Discharge today to home. NO driving for 6 months. Start on Keppra Follow up with PCP and also Dr. Mendoza. DS: Summary Hospital Course Reason for hospitalization: AMS Hospital Course: This is a 54 year old female pt with PMH of GERD, ETOH abuse, HTN, Anxiety, and Depression who presented to the ER with altered mental status on 12/13/24 and was admitted for workup. At home she noted she awoke confused, flailing in bed and could not speak or form words. She had been drinking the night before the episode. In the ER workup was performed and her Head CT was without any intracranial abnormalities. CXR was normal. XR was performed of her right foot as it was painful but it was negative for any acute abnormalities. She was hydrated, admitted and observed and Neurology, Dr. Mendoza was consulted. EEG showed post-ictal state vs. encephalopathic state per Dr. Mendoza. MRI was performed as a result that showed no acute brain abnormalities, but did show a small left frontal lobe periventricular white matter hyperintensity and hypodensity, consistent with CT. Her hospitalization has been unremarkable and uneventful and Dr. Mendoza is agreeable to discharge at this time, initiating pt on Keppra 750 mg BID as well as no driving for 6 months and she is to follow up with him in the office in 1 month. Stable for discharge at this time. Status at Discharge Cognitive/behavioral status at discharge: At baseline Functional status at discharge: independent ambulation Overall status at discharge: patient is back to baseline Time Spent with Patient Time attestation: Total time spent providing and/or coordinating discharge services: Time spent: Greater than 30 minutes Exam Const: General: comfortable and no acute distress HENMT: Face/Nose/Sinus: Normal nares present Mouth: Yes moist mucous membranes Eyes: General: appearance normal, both eyes and all related structures Neck: Neck: supple and no JVD Lymphatic: lymphadenopathy not noted Resp: Effort & Inspection: normal respiratory effort Auscultation: clear to auscultation bilaterally Cardio: Rate: regular rate Rhythm: regular rhythm Heart sounds: no gallops, no murmurs and Rub heart sound present GI: Inspection: non-distended GI Palp: Yes Soft to palpation and No Tenderness to palpation present (GI) Auscultation: normal bowel sounds Skin: General skin exam: normal color, no rashes or lesions noted and no erythema Lesions: no lesions noted Rashes: no rashes noted Wounds: no wounds Neuro: General: gait normal Motor exam (neuro): 5/5 motor strength present throughout and Normal motor muscle tone present throughout Sensory Exam: normal sensation Extrem: General: normal to inspection, no edema and no pedal edema Other: FROM equally of all four extremities without deficits. Psych: Mental Status: mental status grossly normal Affect: normal affect DS: Data Data Completed and Pending Completed studies during hospitalization: ITS Impressions Head CT 12/13/24 08:44 Impression: No significant abnormality seen. Exams somewhat degraded by motion artifact. Chest X-Ray 12/13/24 09:42 IMPRESSION: Low lung volumes, without focal infiltrate or effusion. Foot X-Ray 12/13/24 18:11 IMPRESSION: Degenerative disease, without acute fracture. Brain MRI 12/15/24 10:19 IMPRESSION: 1. No acute intracranial process. 2. 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 Labs on day of discharge: Labs from last 24 hours 12/15/24 07:35 WBC 8.4 RBC 3.24 L Hgb 9.9 L Hct 31.2 L MCV 96.3 MCH 30.6 MCHC 31.7 L RDW 16.6 H Plt Count 233 MPV 9.4 Immature Gran % (Auto) 0.4 Neut % (Auto) 66.5 Lymph % (Auto) 20.7 [place] % (Auto) 8.3 Eos % (Auto) 3.6 Baso % (Auto) 0.5 Lymph # (Auto) 1.75 [place] # (Auto) 0.7 H Eos # (Auto) 0.3 Baso # (Auto) 0.0 Abs Immat Gran (auto) 0.03 Absolute Neuts (auto) 5.6 Absolute Nucleated RBC 0.000 Nucleated RBC % 0.0 Sodium 141 Potassium 3.9 Chloride 115 H Carbon Dioxide 20 L Anion Gap 6 BUN 11 Creatinine 0.62 L Estim Creat Clear Calc 98 Estimated GFR > 60 Glucose 101 Calcium 8.7 Total Bilirubin 0.3 AST 45 H ALT 18 Alkaline Phosphatase 83 Total Protein 6.1 L Albumin 3.2 L Discharge Plan Discharge Attending physician on discharge: Koki Davis Consulting providers: Eder Mendoza Discharging Clinician: Sidra Rebollar Anticipated Discharge Date/Time: 12/15/24 12:42 Patient Disposition: Home Activity: as tolerated Diet: regular Discharge Instructions: Thank you for allowing us to care for you and evaluate you. Your workup is concerning for onset of seizures. You have been evaluated by Neurology and they are starting you on a seizure medication, Keppra. Please take it as ordered. It is very important that you do not drink any alcohol while drinking any of your medications, as it can cause complications. Please do not drive for the next 6 months. If at any point you have any new or worsening symptoms, return to the ER, otherwise please follow up with your PCP this week and with Dr. Mendoza in one month. Patient Language: Turkmen Stand Alone Forms: General Discharge Information Follow-up/Referrals: Marija,Julio C Hernandez MD [Primary Care Provider] - Eder Mendoza MD [Physician] - Call for Appointment (within 3-5 days) Discharge Medications: New levetiracetam [Keppra] 750 mg tablet 750 mg PO BID Qty: 60 1RF Continued acetaminophen 500 mg Tablet 500 mg PO Q6H PRN (Reason: Pain Rated 1-3) Qty: 30 0RF Rx Instructions: For mild to moderate pain calcium carbonate 500 mg calcium (1,250 mg) Tablet,Chewable 200 mg PO Q6H PRN (Reason: Indigestion) Qty: 30 0RF ibuprofen 600 mg Tablet 600 mg PO Q6H PRN (Reason: Pain Rated 4-6) Qty: 20 0RF sertraline 100 mg tablet 100 mg PO DAILY albuterol sulfate 90 mcg/actuation HFA aerosol inhaler 2 inh INHALATION QID PRN (Reason: Shortness Of Breath Or Wheezing) lisinopril-hydrochlorothiazide 20-12.5 mg tablet 1 tablet PO HS potassium chloride [K-Tab] 20 mEq Tablet Extended Release 20 meq PO BID Qty: 20 0RF omeprazole 40 mg capsule,delayed release(DR/EC) 40 mg PO DAILY Date of admission: 12/13/24 09:29 Primary Care Provider: Marija,Julio C Hernandez Admitting Provider: Salvador Hernández Attending physician on admission: Salvador Hernández Condition: Stable Quality VTE Prophylaxis VTE prophylaxis: mechanical ordered Hospitalist MIPS Heart Failure (Exclusion) Patient has history of Heart Transplant or Left Ventricular Assistive Device?: No IF YES, STOP HERE Heart Failure (Qualifier) Patient has current or prior documentation of LVEF less than or equal to 40%, or mod/servere depressed LVSF?: No IF NO, STOP HERE
--- NOTE | 2024-12-15 18:25 | WPDNEUROPN ---
Progress Note: A&P Assessment and Plan (1) Acute alteration in mental status: Code(s): R41.82 - Altered mental status, unspecified Status: Acute (2) Alcohol abuse: Code(s): F10.10 - Alcohol abuse, uncomplicated Status: Chronic Time Spent With Patient Time: Based upon the history and evaluation I would suggest to keep her on Keppra 750 mg twice a day for possible seizure. I shall be glad to see her in my office. I spoke to the family members who all are in agreement that she should not drive and be taking care of for this problem. Not had any seizures in the past however due to the prolonged spell which was otherwise not fully explained and she did not show any signs of alcohol withdrawal later we should continue the anticonvulsant. I shall be glad to see her for follow-up in my office. Subjective Date/time seen: 12/15/24 18:25 Interval history: Patient 54-year-old with history of changes in mental status for which the patient was admitted to the hospital. There is a history of alcohol drinking however the amount of drinking does vary. She apparently had a drink at 8:00 a.m. in the evening and then in the morning she was found to be very confused. The family members including her and daughter think that she might have had a seizure. Nobody saw her have 1 but she was very confused and she remained confused for nearly 36 hours. She had a EEG that shows background slowing and MRI of the brain did not show any significant abnormality. Hemoglobin was 9.9. Review of Systems Review of Systems: All systems reviewed & are unremarkable except as noted in HPI and below Exam Const: General: cooperative, well developed and alert Orientation/consciousness: oriented to person, oriented to place and oriented to time HENMT: Head: atraumatic Eyes: Alignment and Position: position normal EOM: EOMs intact bilaterally Neck: Neck: supple Resp: Effort & Inspection: normal respiratory effort Cardio: Rhythm: regular rhythm Skin: General skin exam: normal color Neuro: General: patient oriented x3 and Unable to assess gait Cranial nerves: Yes CN's II-XII intact bilaterally, Yes facial sensation intact/muscles of mastication intact, Yes Equal, round and reactive pupils present, Yes Bilaterally intact EOM present, Yes Nystagmus not present, Yes facial symmetry, Yes Midline tongue present, Yes Symmetric palate elevation present and Yes Ability to bilaterally elevate shoulders present Cognition (Neuro): normal cognition Speech: normal speech Motor exam (neuro): 5/5 motor strength present throughout, Motor fasciculations not present, Normal motor muscle tone present throughout, Motor abnormalities not present and Tremors during motor activity present Sensory Exam: normal sensation Coordination: [id number] test normal and Normal rapid alternating movements of the distal upper extremity present (Neuro) Objective Data Vital Signs Vital Signs: Vital Signs - 24 hr 12/14/24 20:00 12/14/24 21:51 12/14/24 22:08 Temperature 98.3 F Pulse Rate 106 H 89 Respiratory Rate 20 Blood Pressure 137/75 Pulse Oximetry 99 Oxygen Delivery Room Air 12/15/24 00:00 12/15/24 04:00 12/15/24 06:00 Temperature 98.3 F Pulse Rate 82 80 74 Respiratory Rate 18 Blood Pressure 144/77 H Pulse Oximetry 97 Oxygen Delivery 12/15/24 08:00 12/15/24 08:00 Temperature Pulse Rate 83 Respiratory Rate Blood Pressure Pulse Oximetry Oxygen Delivery Room Air Intake/Output Intake/Output: Intake & Output 12/12/24 12/13/24 12/14/24 12/15/24 23:59 23:59 23:59 23:59 Intake Total 1570 3202.5 636 Output Total 1300 200 600 Balance 270 3002.5 36 Meds/Results Radiology Results: ITS Impressions Head CT 12/13/24 08:44 Impression: No significant abnormality seen. Exams somewhat degraded by motion artifact. Chest X-Ray 12/13/24 09:42 IMPRESSION: Low lung volumes, without focal infiltrate or effusion. Foot X-Ray 12/13/24 18:11 IMPRESSION: Degenerative disease, without acute fracture. Brain MRI 12/15/24 10:19 IMPRESSION: 1. No acute intracranial process. 2. 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 Labs Labs: Laboratory Results - last 24 hr 12/15/24 07:35 WBC 8.4 RBC 3.24 L Hgb 9.9 L Hct 31.2 L MCV 96.3 MCH 30.6 MCHC 31.7 L RDW 16.6 H Plt Count 233 MPV 9.4 Immature Gran % (Auto) 0.4 Neut % (Auto) 66.5 Lymph % (Auto) 20.7 [place] % (Auto) 8.3 Eos % (Auto) 3.6 Baso % (Auto) 0.5 Lymph # (Auto) 1.75 [place] # (Auto) 0.7 H Eos # (Auto) 0.3 Baso # (Auto) 0.0 Abs Immat Gran (auto) 0.03 Absolute Neuts (auto) 5.6 Absolute Nucleated RBC 0.000 Nucleated RBC % 0.0 Sodium 141 Potassium 3.9 Chloride 115 H Carbon Dioxide 20 L Anion Gap 6 BUN 11 Creatinine 0.62 L Estim Creat Clear Calc 98 Estimated GFR > 60 Glucose 101 Calcium 8.7 Total Bilirubin 0.3 AST 45 H ALT 18 Alkaline Phosphatase 83 Total Protein 6.1 L Albumin 3.2 L
== END 2024-12-15 13:53 | disposition home or self-care (01) ==
LOC: ANHED 09:42 → ANH3MED 12-15 12:47 → ANHIMU 12-16 07:28
PROVIDERS: Family Medicine; Nurse Practitioner Adult Health; Admitting Provider Internal Medicine; Emergency Provider Emergency Medicine; PCP Internal Medicine; Visit Provider General Practice
DX: R41.82 Altered mental status, unspecified (principal); F10.10 Alcohol abuse, uncomplicated; R94.01 Abnormal electroencephalogram [EEG]; I10 Essential (primary) hypertension; J45.909 Unspecified asthma, uncomplicated; K21.9 Gastro-esophageal reflux disease without esophagitis; F41.8 Other specified anxiety disorders
CPT/HCPCS: 36415; 70450; 70553; 71045; 73620; 80053; 80307; 81003; 82077; 82948; 83735; 84443; 84702; 85025; 85027; 85610; 85730; 93005; 94640; 95816; 96374; 99285; A9270; A9577; G0378; J2312; J7030

== ENCOUNTER 2025-04-27 11:18 | Outpatient (CLI) | payer OTHER, MEDICARE, SELFPAY ==
--- NOTE | ~2025-04-27 | CT_ITS ---
EXAM/PROCEDURE: CT hip RT wo con HISTORY: Displaced intertrochanteric fracture of right ... COMPARISON: 02/28/2024 TECHNIQUE: Right hip CT FINDINGS: Short intramedullary hoda present with 2 dynamic compression screws including a cortical and cancellus screw. The inferior tip of the intramedullary hoda extends off the inferior field of view of the study. Old fracture is healed. Small spur extends along the superior margin of the subcapital femoral neck image 5 8 series 601 and that comes into contact with the lateral margin of the tectum/acetabulum. Moderately severe osteoarthritic degenerative changes in the right hip. On coronal image 16 series 601, the superior or cortical screw may extend just beyond the cortical margin. Small possibly moderate-sized joint effusion. IMPRESSION: 1. Healed right hip fracture with internal fixation hardware; tip of the superior most compression screw may extend just past the cortical margin into the hip joint. 2. Small to moderate-sized joint effusion and moderately severe osteoarthritic appearing degenerative changes in the right hip. Reviewed, dictated and finalized at location A. HOLOGY PROFESSOR IMPRESSION: 1. Healed right hip fracture with internal fixation hardware; tip of the superi or most compression screw may extend just past the cortical margin into the hip joint. 2. Small to moderate-sized joint effusion and moderately severe osteoarthritic appearing degenerative changes in the right hip.
== END 2025-04-27 11:19 | disposition home or self-care (01) ==
LOC: MICIMG 11:21
PROVIDERS: Visit Provider Orthopaedic Surgery
DX: Z47.89 Encounter for other orthopedic aftercare (principal); Z87.81 Personal history of (healed) traumatic fracture; M16.11 Unilateral primary osteoarthritis, right hip; M87.059 Idiopathic aseptic necrosis of unspecified femur
CPT/HCPCS: 73700